=== PATIENT | female | born 1935 | race Caucasian/White ===

== ENCOUNTER 2019-01-12 03:58 | Inpatient (IN) | payer MEDICARE ==
[~2019-01-12] VITALS: Ht 162.6 cm; Wt 79.4 kg
[~2019-01-12 03:58] MED LIST: ACETAMINOPHEN500 MG PO; ALBUTEROL2.5 MG/3 M INH; AMLODIPINE BES2.5 MG PO; AMLODIPINE BESYL5 MG PO; AZITHROMYCIN250 MG PO; CALCIUM CARBON600 MG PO; CIPROFLOXACIN500 M1 PO; CUTIVATE30 GM TOP; DOXYCYCLINE HY100 MG PO; ELIDEL30 GM TOP; FOLIC ACID0.8 MG PO; FUROSEMIDE20 MG PO; HYDROXYZINE HCL25 MG PO; KEFLEX250 MG PO; KLOR-CON M2020 MEQ PO; LOVASTATIN10 MG PO; LYSINE500 MG PO; MACROBID 100 M100 MG PO; MAGNESIUM500 MG PO; METOPROLOL SUCC50 MG PO; METOPROLOL TART25 MG PO; NASONEX17 GM; NASONEX17 GM INH; OMEPRAZOLE40 MG PO; OXYTROL1 EA TOP; PATANASE30.5 GM; PATANASE30.5 GM INH; PAXIL10 MG PO; PHENAZOPYRIDIN200 MG PO; POTASSIUM CHLO20 MEQ PO; PROMETHAZI6.25 MG/5 PO; PROMETHAZINE HC25 M1 PO; PROVENTIL HFA6.7 GM INH; RESTASIS1 EACH OU; SIMVASTATIN10 MG PO; TRAMADOL HCL100 MG PO; TRIAMCINOLONE A15 G1 TOP; ULTRAM50 MG PO; XARELTO20 MG PO; ZINC50 M1 PO; ZOLPIDEM TARTRAT5 MG PO; ambien PO; amlodipine PO; metoprolol; omeprazole PO
--- OUTSIDE RECORDS SUMMARY | 2019-01-12 04:02 | XMS REPORT | Continuity of Care Document ---
Author Author [employer] Organization [employer] Address Unknown Phone Unavailable Care Team Providers Care Firing Pin Gauger Name Role Phone [employer] Unavailable Unavailable Problems Problem Status Onset Date Classification Date Reported Comments Source Sepsis, unspecified organism 08/22/2017 11/22/2017 [facility] SYNCOPE Active 08/11/2017 [facility] CHEST PAIN Active 07/25/2016 [facility] [id number] Active 07/04/2016 [facility] ABD PAIN Active 03/24/2014 [facility] 724.2, 338.29 Active 01/03/2012 [facility] Lumbago Active Problem 01/19/2012 [facility] AAA (Confirmed) Active Problem 11/22/2017 [facility] Risk for falls Active Problem 11/22/2017 [facility], [facility] Back pain Active Problem 11/22/2017 [facility] Chronic pain Active Problem 11/22/2017 [facility] Stroke1 Resolved Problem 11/22/2017 2005 minor eye drooping [facility] Rotator cuff disorder2 Resolved Problem 11/22/2017 right [facility] Carpal tunnel syndrome Resolved Problem 11/22/2017 [facility] Lumbago Active Problem 11/22/2017 [facility], [facility]ID [place] Obesity Active Problem 11/22/2017 [facility] [place] Leg pain Active Problem 11/22/2017 [facility] Pneumonia3 Resolved Problem 11/22/2017 x 7 in 4 yrs [facility], [facility] Metabolic encephalopathy 11/22/2017 [facility] Acute respiratory failure with hypoxia 11/22/2017 [facility] Acute kidney failure, unspecified 11/22/2017 [facility] Pneumonia, unspecified organism 11/22/2017 [facility] Chronic obstructive pulmonary disease with acute lower respiratory infection 11/22/2017 [facility] Urinary tract infection, site not specified 11/22/2017 [facility] Dehydration 11/22/2017 [facility] Essential hypertension 11/22/2017 [facility] Hypothyroidism, unspecified 11/22/2017 [facility] Enterococcus as the cause of diseases classified elsewhere 11/22/2017 [facility] A-fib Active Problem 11/22/2017 [facility] COPD (Confirmed) Active Problem 11/22/2017 [facility] IBS (Confirmed) Resolved Problem 11/22/2017 [facility] DVT (Confirmed) Resolved Problem 11/22/2017 [facility] HTN (Confirmed) Resolved Problem 11/22/2017 [facility] LUMBAGO Active [facility] PAIN, UNSPECIFIED Active [facility] OTHER CHRONIC POSTPROCEDURAL PAIN Active [facility] CHEST PAIN, UNSPECIFIED Active [facility] SEPSIS, UNSPECIFIED ORGANISM Active [facility] Medications Medication Details Route Status Patient Instructions Ordering Provider Order Date Source Zofran ODT 4 mg, Route: PO, Drug form: TABDIS, Q8H, Dosing Weight 72.864, kg, PRN Nausea, Priority: NOW, Start date: 08/16/17 12:53:00 ARMAMENT INSTALLER, Duration: 30 day, Stop date: 09/15/17 12:52:00 ARMAMENT INSTALLER Inactive 08/16/2017 [facility] Potassium Chloride 40 mEq, 2 tab, Route: PO, Drug form: ERTAB, ONCE, Dosing Weight 72.864, kg, Start date: 08/16/17 12:13:00 ARMAMENT INSTALLER, Stop date: 08/16/17 12:13:00 CSTNotes: (Same as: K-Dur 20) "Do Not Crush" With food and full glass of water Inactive 08/16/2017 [facility] Potassium Chloride 1.33 MEQ/ML Oral Solution 40 mEq, 2 pkt, Route: PO, Drug form: PDR/REC, Q1H, Dosing Weight 72.864, kg, Start date: 08/16/17 11:00:00 ARMAMENT INSTALLER, Duration: 2 doses or times, Stop date: 08/16/17 12:00:00 CSTNotes: (Same as: K-Clementine) With food and full glass of water Inactive 08/16/2017 [facility] Dulcolax Laxative 10 mg, 1 supp, Route: WA, Drug form: SUPP, Daily, Dosing Weight 72.864, kg, PRN Constipation, Start date: 08/16/17 10:01:00 ARMAMENT INSTALLER, Duration: 30 day, Stop date: 09/15/17 10:00:00 CSTNotes: (Same As: Dulcolax, Bisco-Lax) Inactive 08/16/2017 [facility] Levofloxacin 750 mg, 1 tab, Route: PO, Drug form: TAB, [id number], Dosing Weight 72.864, kg, For CrCl > 49ml/min, Start date: 08/15/17 11:00:00 ARMAMENT INSTALLER, Duration: 7 day, Stop date: 08/21/17 9:00:00 ARMAMENT INSTALLER, ABX Indication: Urinary Tract InfectionNotes: Do not give w/antacids, dairy pdt & minerals Take 1 hr before or 2 hr after dairy products No Longer Active 08/15/2017 [facility] levofloxacin 750 mg oral tablet 750 mg, PO, [id number], X 10 day, # 10 tab, 0 Refill(s), Pharmacy: [facility] [id number] No Longer Active 08/15/2017 [facility] Fosfomycin 3 gm, 1 pkt, Route: PO, Drug form: PDR/REC, ONCE, Dosing Weight 72.864, kg, Start date: 08/14/17 16:02:00 ARMAMENT INSTALLER, Stop date: 08/14/17 16:02:00 CSTNotes: (Same as: Monural) mix w/ 90 to 120 ml (3 to 4 ounc es) of water and stir to dissolve. Do not use hot water. Take immediately after dissolving in water. Inactive 08/14/2017 [facility] Potassium Chloride 1.33 MEQ/ML Oral Solution 40 mEq, 2 pkt, Route: PO, Drug form: PDR/REC, ONCE, Dosing Weight 72.864, kg, Start date: 08/14/17 10:11:00 ARMAMENT INSTALLER, Stop date: 08/14/17 10:11:00 CSTNotes: (Same as: K-Clementine) With food and full glass of water Inactive 08/14/2017 [facility] tramadol hydrochloride 50 MG Oral Tablet 50 mg, 1 tab, Route: PO, Drug form: TAB, Q6H, Dosing Weight 72.864, kg, PRN Pain Score 1-3, Priority: NOW, Start date: 08/14/17 2:36:00 ARMAMENT INSTALLER, Duration: 30 day, Stop date: 09/13/17 2:35:00 CSTNotes: Not to exceed 400mg/day. (Same As: Ultram) No Longer Active 08/14/2017 [facility] Omeprazole 40 mg, Route: PO, Drug form: DRC, Bedtime, Dosing Weight 72.864, kg, Start date: 08/13/17 21:00:00 ARMAMENT INSTALLER, Duration: 30 day, Stop date: 09/11/17 21:00:00 ARMAMENT INSTALLER No Longer Active 08/14/2017 [facility] rivaroxaban 15 mg, 1 tab, Route: PO, Drug form: TAB, QPM, Dosing Weight 72.864, kg, Start date: 08/13/17 17:00:00 ARMAMENT INSTALLER, Duration: 30 day, Stop date: 09/11/17 17:00:00 CSTNotes: (Same as: Xarelto) Administer with food No Longer Active 08/13/2017 [facility] mometasone furoate 0.05 MG/ACTUAT Metered Dose Nasal [place] [Nasonex] 100 microgram, 2 spray, Route: NASAL, Daily, Drug form: SPRY, Start date: 08/13/17 9:00:00 ARMAMENT INSTALLER, Duration: 30 day, Stop date: 09/11/17 9:00:00 ARMAMENT INSTALLER No Longer Active 08/13/2017 [facility] Lyrica 25 mg, 1 cap, Route: PO, Drug form: CAP, Daily, Dosing Weight 72.864, kg, Start date: 08/13/17 9:00:00 ARMAMENT INSTALLER, Duration: 30 day, Stop date: 09/11/17 9:00:00 CSTNotes: (Same as: Lyrica) No Longer Active 08/13/2017 [facility] Cyclosporine 1 drp, Route: BOTH EYES, Daily, Drug form: DROP, Start date: 08/13/17 9:00:00 ARMAMENT INSTALLER, Duration: 30 day, Stop date: 09/11/17 9:00:00 CSTNotes: (Same as: Restasis) No Longer Active 08/13/2017 [facility] Singulair 10 mg, 1 tab, Route: PO, Drug form: TAB, Daily, Dosing Weight 72.864, kg, Start date: 08/13/17 9:00:00 ARMAMENT INSTALLER, Duration: 30 day, Stop date: 09/11/17 9:00:00 CSTNotes: (Same as:Singulair) No Longer Active 08/13/2017 [facility] metoprolol tartrate 12.5 mg, 0.5 tab, Route: PO, Drug form: TAB, Q12H, Dosing Weight 72.864, kg, Start date: 08/13/17 9:00:00 ARMAMENT INSTALLER, Duration: 30 day, Stop date: 09/11/17 21:00:00 CSTNotes: (Same as: Lopressor) No Longer Active 08/13/2017 [facility] Protonix 40 mg, 1 tab, Route: PO, Drug form: ECTAB, Bedtime, Start date: 08/13/17 0:00:00 ARMAMENT INSTALLER, Duration: 30 day, Stop date: 09/11/17 21:00:00 CSTNotes: Tablet should not be chewed or crushed. (Same as: Protonix) No Longer Active 08/13/2017 [facility] Zithromax 500 mg, Route: IVPB, Drug form: PDR/INJ, [id number], Dosing Weight 68.182, kg, Start date: 08/13/17 0:00:00 ARMAMENT INSTALLER, Duration: 10 day, Stop date: 08/22/17 0:00:00 ARMAMENT INSTALLER, ABX Indication: PneumoniaNotes: (Same As: Zithromax IV) No Longer Active 08/13/2017 [facility] Azithromycin 500 mg, Route: IVPB, Drug form: PDR/INJ, [id number], Dosing Weight 68.182, kg, Start date: 08/13/17 0:00:00 ARMAMENT INSTALLER, Duration: 30 day, Stop date: 09/11/17 0:00:00 ARMAMENT INSTALLER, ABX Indication: PneumoniaNotes: (Same As: Zithromax IV) No Longer Active 08/13/2017 [facility] Simvastatin 10 mg, 1 tab, Route: PO, Drug form: TAB, Bedtime, Dosing Weight 72.864, kg, Start date: 08/13/17 0:00:00 ARMAMENT INSTALLER, Duration: 30 day, Stop date: 09/11/17 21:00:00 CSTNotes: (Same as: Zocor) No Longer Active 08/13/2017 [facility] Rocephin 1 gm, Route: IVP, Drug form: PDR/INJ, [id number], Dosing Weight 68.182, kg, Start date: 08/12/17 21:00:00 ARMAMENT INSTALLER, Duration: 10 day, Stop date: 08/21/17 21:00:00 ARMAMENT INSTALLER, ABX Indication: PneumoniaNotes: (Same As: Rocephin). Use with 100 mL NS and infuse over 30 min MEDICATION WASTE Product Size: 1000 mg Product Wasted: ___ mg No Longer Active 08/13/2017 [facility] pregabalin 25 MG Oral Capsule [Lyrica] 25 mg=1 cap, PO, Daily, # 30 cap, 0 Refill(s) Active 08/12/2017 [facility] montelukast 10 MG Oral Tablet [Singulair] 10 mg=1 tab, PO, Daily, 0 Refill(s) Active 08/12/2017 [facility] rivaroxaban 20 MG Oral Tablet [Xarelto] 20 mg=1 tab, PO, QPM, # 30 tab, 3 Refill(s) No Longer Active 08/12/2017 [facility] metoprolol 25 mg oral tablet, extended release 25 mg=1 tab, PO, TID, 0 Refill(s) Active 08/12/2017 [facility] Amlodipine 5 mg, PO, Daily, 0 Refill(s) No Longer Active 08/12/2017 [facility] losartan 25 mg oral tablet 25 mg=1 tab, PO, Daily, 0 Refill(s) Active 08/12/2017 [facility] fluticasone nasal 2 spray, Route: Each Affected Nostril, Drug Form: SPRY, Daily, Start date: 08/12/17 13:00:00 ARMAMENT INSTALLER, Duration: 30 day, Stop date: 09/11/17 9:00:00 CSTNotes: (Same as: Flonase) No Longer Active 08/12/2017 [facility] Albuterol 0.833 MG/ML / Ipratropium [place] 0.167 MG/ML Inhalant Solution [DuoNeb] 3 ml, Route: NEB, Drug Form: SOLN, Dosing Weight 72.864, kg, Q4H, Start date: 08/12/17 12:00:00 ARMAMENT INSTALLER, Duration: 30 day, Stop date: 09/11/17 8:00:00 CSTNotes: (Same as: Duoneb) No Longer Active 08/12/2017 [facility] metoprolol tartrate 25 mg, 1 tab, Route: PO, Drug form: TAB, Q6H, Dosing Weight 72.864, kg, Start date: 08/12/17 12:00:00 ARMAMENT INSTALLER, Stop date: 08/15/17 11:08:00 CSTNotes: (Same as: Lopressor) No Longer Active 08/12/2017 [facility] Thyroxine 50 microgram, 1 tab, Route: PO, Drug form: TAB, [id number], Dosing Weight 72.864, kg, Start date: 08/12/17 11:30:00 ARMAMENT INSTALLER, Duration: 30 day, Stop date: 09/11/17 6:30:00 CSTNotes: Take 1 hour before or 2 hours after meal; Enteral feeds may interefere with the absorption of this medication.(Same as:Levothroid, Synthroid) No Longer Active 08/12/2017 [facility] Streptococcus pneumoniae serotype 1 capsular antigen diphtheria [id number] protein conjugate vaccine / Streptococcus pneumoniae serotype 14 capsular antigen diphtheria [id number] protein conjugate vaccine / Streptococcus pneumoniae serotype 18C capsular antigen d 0.5 mL, Route: IM, Drug Form: INJ, ONCALL, Start date: 08/12/17 11:00:00 ARMAMENT INSTALLER, Duration: 1 doses or times, Stop date: 09/09/17 0:00:00 CSTNotes: Shake well prior to use (Same as: Prevnar 13) No Longer Active 08/12/2017 [facility] Lovenox 40 mg, 0.4 mL, Route: SUB-Q, Drug form: INJ, [id number], Dosing Weight 72.864, kg, Start date: 08/12/17 10:00:00 ARMAMENT INSTALLER, Duration: 30 day, Stop date: 09/09/17 13:00:00 CSTNotes: (Same as: Lovenox) Inactive 08/12/2017 [facility] Budesonide 0.25 MG/ML Inhalant Solution 0.5 mg, 2 mL, Route: NEB, Drug form: SUSP, RBID, Dosing Weight 72.864, kg, Start date: 08/12/17 9:50:00 ARMAMENT INSTALLER, Duration: 30 day, Stop date: 09/11/17 8:00:00 CSTNotes: (Same As: Pulmicort) No Longer Active 08/12/2017 [facility] Metoprolol 5 mg, 5 mL, Route: IVP, Drug form: INJ, Q4H, Dosing Weight 68.182, kg, PRN Other -See Comment, Start date: 08/12/17 3:54:00 ARMAMENT INSTALLER, Duration: 30 day, Stop date: 09/11/17 3:53:00 CSTNotes: (Same as: Lopr essor) Push over 2 minutes No Longer Active 08/12/2017 [facility] Hydralazine 10 mg, 0.5 mL, Route: IVP, Drug form: INJ, Q4H, Dosing Weight 68.182, kg, PRN Other -See Comment, Start date: 08/12/17 3:54:00 ARMAMENT INSTALLER, Duration: 30 day, Stop date: 09/11/17 3:53:00 CSTNotes: (Same as: A presoline) Push over 5 minutes No Longer Active 08/12/2017 [facility] Sodium Chloride 0.9% IV 1,000 mL 1,000 mL, Rate: 45 ml/hr, Infuse over: 22.2 hr, Route: IV, Dosing Weight 72.864 kg, Total Volume: 1,000, Start date: 08/12/17 3:50:00 ARMAMENT INSTALLER, Stop date: 09/11/17 3:49:00 ARMAMENT INSTALLER, 1.83, m2 No Longer Active 08/12/2017 [facility] Saline Flush 0.9% 10 ml, Route: IVP, Drug Form: INJ, Dosing Weight 68.182, kg, PRN, PRN Line Flush, Start date: 08/12/17 3:50:00 ARMAMENT INSTALLER, Duration: 30 day, Stop date: 09/11/17 3:49:00 CSTNotes: (Same as: BD Posiflush) No Longer Active 08/12/2017 [facility] Ondansetron 4 mg, 2 mL, Route: IVP, Drug form: INJ, Q6H, Dosing Weight 68.182, kg, PRN Nausea & Vomiting, Start date: 08/12/17 3:50:00 ARMAMENT INSTALLER, Duration: 30 day, Stop date: 09/11/17 3:49:00 CSTNotes: (Same as: Zofran) MEDICATION WASTE Product Size: 4 mg Product Wasted: ___ mg No Longer Active 08/12/2017 [facility] Acetaminophen 650 mg, 2 tab, Route: PO, Drug form: TAB, Q4H, Dosing Weight 68.182, kg, PRN Pain Score 1-3, For fever > 100.4. Not to exceed 4 grams in 24 hours, Start date: 08/12/17 3:50:00 ARMAMENT INSTALLER, Duration: 30 day, Stop date: 09/11/17 3:49:00 CSTNotes: Do not exceed 4 gm/day. (Same as: Tylenol) No Longer Active 08/12/2017 [facility] Dextromethorphan Hydrobromide 2 MG/ML / Guaifenesin 20 MG/ML Oral Solution 10 mL, Route: PO, Drug Form: LIQ, Dosing Weight 68.182, kg, Q4H, PRN Cough, Start date: 08/12/17 3:50:00 ARMAMENT INSTALLER, Duration: 30 day, Stop date: 09/11/17 3:49:00 CSTNotes: (dextromethorphan-guaifenesin 10-100/5 ml LIQ) (Same as: Robitussin-DM) No Longer Active 08/12/2017 [facility] Albuterol 0.83 MG/ML Inhalant Solution 2.49 mg, 3 mL, Route: INHALATION, Drug form: SOLN, PRN, Dosing Weight 68.182, kg, PRN Respiratory Protocol, Start date: 08/12/17 3:50:00 ARMAMENT INSTALLER, Duration: 30 day, Stop date: 09/11/17 3:49:00 CSTNotes: SEE RT DOCUMENTATION (Same as: Proventil) No Longer Active 08/12/2017 [facility] Saline Flush 0.9% 10 ml, Route: IVP, Drug Form: INJ, Dosing Weight 68.182, kg, PRN, PRN Line Flush, Start date: 08/12/17 0:51:00 ARMAMENT INSTALLER, Duration: 30 day, Stop date: 09/11/17 0:50:00 CSTNotes: (Same as: BD Posiflush) Inactive 08/12/2017 [facility] Sodium Chloride 0.9% IV 1,000 mL 1,000 mL, Rate: 75 ml/hr, Infuse over: 13.3 hr, Route: IV, Dosing Weight 68.182 kg, Total Volume: 1,000, Start date: 08/12/17 0:51:00 ARMAMENT INSTALLER, Duration: 30 day, Stop date: 09/11/17 0:50:00 ARMAMENT INSTALLER, 1.77, m2 Inactive 08/12/2017 [facility] Acetaminophen 650 mg, 2 tab, Route: PO, Drug form: TAB, Q4H, Dosing Weight 68.182, kg, PRN Pain Score 1-3, For fever > 100.4. Not to exceed 4 grams in 24 hours, Start date: 08/12/17 0:51:00 ARMAMENT INSTALLER, Duration: 30 day, Stop date: 09/11/17 0:50:00 CSTNotes: Do not exceed 4 gm/day. (Same as: Tylenol) Inactive 08/12/2017 [facility] Ondansetron 4 mg, 2 mL, Route: IVP, Drug form: INJ, Q6H, Dosing Weight 68.182, kg, PRN Nausea & Vomiting, Start date: 08/12/17 0:51:00 ARMAMENT INSTALLER, Duration: 30 day, Stop date: 09/11/17 0:50:00 CSTNotes: (Same as: Zofran) MEDICATION WASTE Product Size: 4 mg Product Wasted: ___ mg Inactive 08/12/2017 [facility] Dextromethorphan Hydrobromide 2 MG/ML / Guaifenesin 20 MG/ML Oral Solution 10 mL, Route: PO, Drug Form: LIQ, Dosing Weight 68.182, kg, Q4H, PRN Cough, Start date: 08/12/17 0:51:00 ARMAMENT INSTALLER, Duration: 30 day, Stop date: 09/11/17 0:50:00 CSTNotes: (dextromethorphan-guaifenesin 10-100/5 ml LIQ) (Same as: Robitussin-DM) Inactive 08/12/2017 [facility] Albuterol 0.833 MG/ML / Ipratropium [place] 0.167 MG/ML Inhalant Solution 3 mL, Route: INHALATION, Drug Form: SOLN, Dosing Weight 68.182, kg, PRN, PRN Respiratory Protocol, Start date: 08/12/17 0:51:00 ARMAMENT INSTALLER, Duration: 30 day, Stop date: 09/11/17 0:50:00 CSTNotes: (Same as: Duoneb) Inactive 08/12/2017 [facility] Azithromycin 500 mg, Route: IVPB, ONCE, Dosing Weight 68.182, kg, Priority: STAT, Start date: 08/12/17 0:10:00 ARMAMENT INSTALLER, Stop date: 08/12/17 0:10:00 ARMAMENT INSTALLER, ABX Indication: Pneumonia Inactive 08/12/2017 [facility] NS (Bolus) IV 500 mL, 500 ml/hr, Infuse Over: 1 hr, Route: IV, 500, Drug form: INJ, ONCE, Priority: STAT, Dosing Weight 68.182 kg, Start date: 08/11/17 23:23:00 ARMAMENT INSTALLER, Stop date: 08/11/17 23:23:00 ARMAMENT INSTALLER No Longer Active 08/12/2017 [facility] Ceftriaxone 1 gm, Route: IVP, ONCE, Dosing Weight 68.182, kg, Priority: STAT, Start date: 08/11/17 21:21:00 ARMAMENT INSTALLER, Stop date: 08/11/17 21:21:00 ARMAMENT INSTALLER, ABX Indication: Urinary Tract InfectionNotes: (Same As: Rocephin). Use with 100 mL NS and infuse over 30 min MEDICATION WASTE Product Size: 1000 mg Product Wasted0 mg Inactive 08/12/2017 [facility] Visipaque 320 mg/mL injectable solution 100 mL, Route: IVP, Drug Form: SOLN, Dosing Weight 68.182, kg, ONCALL, GFR 31 - 45 mL/min, STAT, Start date: 08/11/17 21:20:00 ARMAMENT INSTALLER, Duration: 1 doses or timesNotes: (Same as: Visipaque). WASTE: F/P - Black; E - Municipal Trash Bin Inactive 08/12/2017 [facility] NS (Bolus) IV 500 mL, 500 ml/hr, Infuse Over: 1 hr, Route: IV, 500, Drug form: INJ, ONCE, Priority: STAT, Dosing Weight 68.182 kg, Start date: 08/11/17 19:45:00 ARMAMENT INSTALLER, Stop date: 08/11/17 19:45:00 ARMAMENT INSTALLER Inactive 08/12/2017 [facility] Saline Flush 0.9% 10 mL, Route: IVP, Drug Form: INJ, Dosing Weight 68.182, kg, PRN, PRN Line Flush, Start date: 08/11/17 19:31:00 ARMAMENT INSTALLER, Duration: 30 day, Stop date: 09/10/17 19:30:00 CSTNotes: (Same as: BD Posiflush) No Longer Active 08/12/2017 [facility] Xarelto 20 mg, Route: PO, QPM, Dosing Weight 82.545, kg, Start date: 07/28/16 17:00:00 ARMAMENT INSTALLER, Duration: 30 day, Stop date: 08/26/16 17:00:00 ARMAMENT INSTALLER Inactive 07/28/2016 [facility] rivaroxaban 15 mg, 1 tab, Route: PO, Drug form: TAB, QPM, Start date: 07/28/16 17:00:00 ARMAMENT INSTALLER, Duration: 30 day, Stop date: 08/26/16 17:00:00 CSTNotes: (Same as: Xarelto) Administer with food Inactive 07/28/2016 [facility] tramadol hydrochloride 50 MG Oral Tablet 50 mg=1 tab, PO, Q6H, PRN Pain, X 10 day, # 40 tab, 0 Refill(s) Active 07/28/2016 [facility] rivaroxaban 15 mg oral tablet 15 mg=1 tab, PO, QPM, # 30 tab, 0 Refill(s) Active 07/28/2016 [facility] metoprolol tartrate 50 mg oral tablet 100 mg=2 tab, PO, Q12H, # 120 tab, 2 Refill(s) Active 07/28/2016 [facility] Tylenol 500 mg, 1 tab, Route: PO, Drug form: TAB, ONCE, Dosing Weight 82.545, kg, Start date: 07/28/16 11:35:00 ARMAMENT INSTALLER, Stop date: 07/28/16 11:35:00 CSTNotes: Max acetaminophen 4000 mg/day (4 gm/day). (Same as: Tylenol Extra Strength) Inactive 07/28/2016 [facility] potassium chloride 20 mEq oral tablet, extended release 40 mEq, 2 tab, Route: PO, Drug form: ERTAB, ONCE, Dosing Weight 82.545, kg, Start date: 07/28/16 9:17:00 ARMAMENT INSTALLER, Stop date: 07/28/16 9:17:00 CSTNotes: (Same as: K- Dur 20) "Do Not Crush" With food and full glass of water Inactive 07/28/2016 [facility] Levothroid 50 microgram, 1 tab, Route: PO, Drug form: TAB, Q630AM, Start date: 07/28/16 6:30:00 ARMAMENT INSTALLER, Duration: 30 day, Stop date: 08/26/16 6:30:00 CSTNotes: Take 1 hour before or 2 hours after meal; Enteral feeds may interefere with the absorption of this medication.(Same as:Levothroid, Synthroid) Inactive 07/28/2016 [facility] metoprolol tartrate 100 mg, 2 tab, Route: PO, Drug form: TAB, Q12H, Dosing Weight 82.727, kg, Start date: 07/27/16 21:00:00 ARMAMENT INSTALLER, Duration: 30 day, Stop date: 08/26/16 9:00:00 CSTNotes: (Same as: Lopressor) No Longer Active 07/28/2016 [facility] Streptococcus pneumoniae serotype 1 capsular antigen diphtheria [id number] protein conjugate vaccine / Streptococcus pneumoniae serotype 14 capsular antigen diphtheria [id number] protein conjugate vaccine / Streptococcus pneumoniae serotype 18C capsular antigen d 0.5 mL, Route: IM, Drug Form: INJ, Daily, Start date: 07/27/16 9:00:00 ARMAMENT INSTALLER, Duration: 1 doses or times, Stop date: 07/27/16 9:00:00 CSTNotes: Lightly roll vial (DO NOT SHAKE) before administration. (Same as: Prevnar 13) Inactive 07/27/2016 [facility] Magnesium Sulfate 1 gm, 100 mL, Route: IVPB, Drug form: INJ, ONCE, Dosing Weight 82.545, kg, Start date: 07/27/16 8:19:00 ARMAMENT INSTALLER, Stop date: 07/27/16 8:19:00 CSTNotes: WASTE: F/P - Sink; E - Municipal Trash Bin Inactive 07/27/2016 [facility] Vancomycin 1.5 gm, Route: IV, [id number], Dosing Weight 82.545, kg, Priority: NOW, Start date: 07/27/16 8:18:00 ARMAMENT INSTALLER, Duration: 30 day, Stop date: 08/25/16 8:18:00 CSTNotes: TIME CRITICAL MEDICATION (Same As: Vancocin) Infusion rate 2001 mg: infuse over 2.5 hours MEDICATION WASTE Product Size: 1000 mg Product Wasted: ___ mg Inactive 07/27/2016 [facility] Simvastatin 10 mg, 1 tab, Route: PO, Drug form: TAB, Bedtime, Dosing Weight 82.727, kg, Start date: 07/26/16 21:00:00 ARMAMENT INSTALLER, Duration: 30 day, Stop date: 08/24/16 21:00:00 CSTNotes: (Same as: Zocor) No Longer Active 07/27/2016 [facility] Omeprazole 40 mg, Route: PO, Drug form: DRC, Bedtime, Dosing Weight 82.727, kg, Start date: 07/26/16 21:00:00 ARMAMENT INSTALLER, Duration: 30 day, Stop date: 08/24/16 21:00:00 ARMAMENT INSTALLER Inactive 07/27/2016 [facility] mometasone furoate 0.05 MG/ACTUAT Metered Dose Nasal [place] [Nasonex] 2 spray, NASAL, Daily, 0 Refill(s) Active 07/27/2016 [facility] rivaroxaban 20 MG Oral Tablet [Xarelto] 20 mg=1 tab, PO, QPM, # 30 tab, 3 Refill(s) No Longer Active 07/27/2016 [facility] phenazopyridine 200 mg oral tablet 200 mg=1 tab, PO, Q6H Active 07/27/2016 [facility] Cyclosporine 0.5 MG/ML Ophthalmic Suspension [Restasis] 2 drp, BOTH EYES, Daily Active 07/27/2016 [facility] Symbicort 80/4.5 inhalation aerosol with adapter 1 puff, INHALATION, BID Active 07/27/2016 [facility] metoprolol tartrate 25 mg oral tablet 25 mg=1 tab, PO, BID No Longer Active 07/27/2016 [facility] [facility] Al[facility]ol 0.83 MG/ML Inhalant Solution 2.5 mg=3 mL, INHALATION, TID, PRN prn Active 07/27/2016 [facility] lysine 500 mg oral tablet 1,000 mg=2 tab, PO, Daily Active 07/27/2016 [facility] levocetirizine 5 mg oral tablet 5 mg=1 tab, PO, QAM Active 07/27/2016 [facility] levothyroxine 50 mcg (0.05 mg) oral tablet 50 microgram=1 tab, PO, Daily Active 07/27/2016 [facility] Xarelto 20 mg, 1 tab, Route: PO, Drug form: TAB, QPM, Dosing Weight 82.727, kg, Start date: 07/26/16 17:00:00 [employer] INST[employer], Duration: 30 day, Stop date: 08/24/16 17:00:00 CSTNotes: (Same as: Xarelto) Administer with food Inactive 07/26/2016 [facility] Protonix 40 mg, 1 tab, Route: PO, Drug form: ECTAB, Before Dinner, Start date: 07/26/16 16:30:00 [employer] INST[employer], Duration: 30 day, Stop date: 08/24/16 16:30:00 CSTNotes: Tablet should not be chewed or crushed. (Same as: Protonix) No Longer Active 07/26/2016 [facility] metoprolol tartrate 50 mg, 1 tab, Route: PO, Drug form: TAB, Q8H, Dosing Weight 82.727, kg, Start date: 07/26/16 16:00:00 [employer] INST[employer], Duration: 30 day, Stop date: 08/25/16 8:00:00 CSTNotes: (Same as: Lopressor) No Longer Active 07/26/2016 [facility] Furosemide 40 MG Oral Tablet [Lasix] 40 mg, 1 tab, Route: PO, Drug form: TAB, Daily, Dosing Weight 82.727, kg, Priority: NOW, Start date: 07/26/16 14:52:00 [employer] INST[employer], Duration: 30 day, Stop date: 08/25/16 9:00:00 CSTNotes: (Same as: Lasix) No Longer Active 07/26/2016 [facility] Vancomycin 1.25 gm, 250 mL, Route: IV, Drug form: INJ, ONCE, Dosing Weight 82.727, kg, Priority: NOW, Start date: 07/26/16 10:38:00 [employer] INST[employer]ER, Stop date: 07/26/16 10:38:00 CSTNotes: TIME CRITICAL MEDICATION Same as: Vancocin-NS (premixed) Infusion rate 2001 mg: infuse over 2.5 hours Inactive 07/26/2016 [facility] Amlodipine 2.5 mg, Route: PO, Drug form: TAB, Daily, Dosing Weight 82.727, kg, Start date: 07/26/16 9:00:00 [employer] INST[employer], Duration: 30 day, Stop date: 08/24/16 9:00:00 [employer] INST[employer]ER No Longer Active 07/26/2016 [facility] 24 HR Metoprolol Tartrate 25 MG Extended Release Tablet [Toprol] 25 mg, 1 tab, Route: PO, Drug form: ERTAB, Daily, Start date: 07/26/16 9:00:00 [employer] INST[employer], Duration: 30 day, Stop date: 08/24/16 9:00:00 CSTNotes: (Same as: Toprol XL) Do Not Crush Inactive 07/26/2016 [facility] Losartan 25 mg, Route: PO, Drug form: TAB, Daily, Dosing Weight 82.727, kg, Start date: 07/26/16 9:00:00 [employer] INST[employer]ER, Duration: 30 day, Stop date: 08/24/16 9:00:00 [employer]ENT INST[employer]ER No Longer Active 07/26/2016 [facility] Metoprolol 5 mg, Route: IV, ONCE, Dosing Weight 82.727, kg, Start date: 07/26/16 8:53:00 [employer] INST[employer]ER, Stop date: 07/26/16 8:53:00 [employer]ENT INST[employer]ER Inactive 07/26/2016 [facility] metoprolol tartrate 25 mg, Route: PO, Drug form: TAB, ONCE, Dosing Weight 82.727, kg, Start date: 07/26/16 8:53:00 [employer]ENT INST[employer]ER, Stop date: 07/26/16 8:53:00 ARM[employer]ENT INST[employer]ER Inactive 07/26/2016 [facility] Metoprolol 5 mg, Route: IV, ONCE, Dosing Weight 82.727, kg, Start date: 07/26/16 8:21:00 [employer]ENT INST[employer]ER, Stop date: 07/26/16 8:21:00 [employer]ENT INST[employer]ER Inactive 07/26/2016 [facility] Symbicort 80/4.5 inhalation aerosol with adapter 2 inhalation, Route: INHALATION, Drug Form: AERO/A, Dosing Weight 82.727, kg, RBID, Start date: 07/26/16 8:00:00 [employer] INST[employer]ER, Duration: 30 day, Stop date: 08/24/16 20:00:00 CSTNotes: (Same as: Symbicort) WASTE: Aerosol - Return to Pharmacy No Longer Active 07/26/2016 [facility] Tramadol 50 mg, 1 tab, Route: PO, Drug form: TAB, Q6H, Dosing Weight 82.727, kg, PRN Pain Score 6-10, Start date: 07/26/16 6:53:00 [employer] INST[employer]ER, Duration: 30 day, Stop date: 08/25/16 6:52:00 CSTNotes: Not to exceed 40 0mg/day. (Same As: Ultram) No Longer Active 07/26/2016 [facility] Albuterol 0.833 MG/ML / Ipratropium [place] 0.167 MG/ML Inhalant Solution 3 mL, Route: NEB, Drug Form: SOLN, Dosing Weight 82.727, kg, RQ4H, PRN Respiratory Protocol, Start date: 07/26/16 4:04:00 [employer] INST[employer]ER, Stop date: 08/25/16 3:00:00 CSTNotes: (Same as: Duoneb) No Longer Active 07/26/2016 [facility] Sodium Chloride 0.9% IV 1000 mL 1,000 mL, Rate: 100 ml/hr, Infuse over: 10 hr, Route: IV, Dosing Weight 82.727 kg, Total Volume: 1,000, Start date: 07/26/16 1:01:00 [employer] INST[employer]ER, Duration: 30 day, Stop date: 08/25/16 1:00:00 [employer]ENT INST[employer]ER Inactive 07/26/2016 [facility] tramadol hydrochloride 50 MG Oral Tablet 50 mg, 1 tab, Route: PO, Drug form: TAB, Q6H, Dosing Weight 82.727, kg, PRN Pain Score 6-10, Start date: 07/25/16 22:50:00 [employer] INST[employer]ER, Duration: 30 day, Stop date: 08/24/16 22:49:00 CSTNotes: Not to exceed 400mg/day. (Same As: Ultram) No Longer Active 07/26/2016 [facility] Albuterol 0.833 MG/ML / Ipratropium [place] 0.167 MG/ML Inhalant Solution 3 mL, Route: INHALATION, Drug Form: SOLN, Dosing Weight 82.727, kg, RQ6H, PRN Wheezing, Start date: 07/25/16 22:46:00 [employer] INST[employer], Duration: 30 day, Stop date: 08/24/16 22:45:00 CSTNotes: (Same as: Duoneb) No Longer Active 07/26/2016 [facility] Ceftazidime 1 gm, Route: IV, Drug form: PDR/INJ, ABXQ8H, Dosing Weight 82.727, kg, Start date: 07/25/16 22:00:00 [employer] INST[employer]ER, Duration: 30 day, Stop date: 08/24/16 14:00:00 CSTNotes: (Same as: Fortaz) MEDICATION WASTE Product Size: 1000 mg Product Wasted: ___ mg No Longer Active 07/26/2016 [facility] Amlodipine 2.5 mg, 1 tab, Route: PO, Drug form: TAB, ONCE, Dosing Weight 82.727, kg, Start date: 07/25/16 21:18:00 [employer] INST[employer], Stop date: 07/25/16 21:18:00 CSTNotes: (Same as: Norvasc) No Longer Active 07/26/2016 [facility] Benadryl 25 mg, 0.5 mL, Route: IVP, Drug form: INJ, ONCE, Dosing Weight 82.727, kg, Priority: STAT, Start date: 07/25/16 21:17:00 [employer] INST[employer]ER, Stop date: 07/25/16 21:17:00 CSTNotes: (Same as: Benadryl) No Longer Active 07/26/2016 [facility] Vancomycin 2 gm, Route: IV, ONCE, Dosing Weight 82.727, kg, Start date: 07/25/16 21:16:00 [employer] INST[employer]ER, Stop date: 07/25/16 21:16:00 CSTNotes: TIME CRITICAL MEDICATION (Same As: Vancocin) Infusion rate 2001 mg: infuse ov er 2.5 hours MEDICATION WASTE Product Size: 1000 mg Product Wasted: ___ mg No Longer Active 07/26/2016 [facility] Sodium Chloride 0.154 MEQ/ML Injectable Solution 1,000 mL, 1,000 ml/hr, Infuse Over: 1 hr, Route: IV, ONCE, Priority: STAT, Dosing Weight 82.727 kg, Start date: 07/25/16 20:26:00 [employer] INST[employer]ER, Duration: 1 doses or times, Stop date: 07/25/16 20:26:00 [employer]ENT INSTALLER Inactive 07/26/2016 [facility] Saline Flush 0.9% 10 mL, Route: IVP, Drug Form: INJ, Dosing Weight 82.727, kg, PRN, PRN Line Flush, Start date: 07/25/16 20:05:00 [employer] INST[employer], Duration: 30 day, Stop date: 08/24/16 20:04:00 CSTNotes: (Same as: BD Posiflush) No Longer Active 07/26/2016 [facility] metoprolol tartrate 25 mg, Route: PO, Drug form: TAB, ONCE, Dosing Weight 82.727, kg, Priority: STAT, Start date: 07/25/16 20:05:00 ARMAMENT INST[employer]ER, Stop date: 07/25/16 20:05:00 ARM[employer]ENT INST[employer]ER Inactive 07/26/2016 [facility] iodixanol 70 mL, Route: IVP, Drug Form: SOLN, Dosing Weight 82.727, kg, ONCALL, STAT, Start date: 07/25/16 18:33:00 [employer] INST[employer]ER, Duration: 1 doses or times, Dose=2.2ml/kg, Max oake=880cn -- "To be infused by Radiology Staff ONLY" Inactive 07/26/2016 [facility] Morphine 2 mg, Route: IVP, ONCE, Dosing Weight 82.727, kg, Priority: STAT, Start date: 07/25/16 17:44:00 ARM[employer]ENT INST[employer]ER, Stop date: 07/25/16 17:44:00 ARM[employer]ENT INST[employer]ER Inactive 07/25/2016 [facility] lidocaine (ANES) Route: IV, Drug form: INJ, ONCE, Stop date: 07/22/16 10:13:00 ARMAMENT INSTALLER Inactive 07/22/2016 [facility] fentaNYL (ANES) Route: IV, Drug form: INJ, ONCE, Stop date: 07/22/16 10:13:00 ARMAMENT INSTALLER Inactive 07/22/2016 [facility] ondansetron (ANES) Route: IV, Drug form: INJ, ONCE, Stop date: 07/22/16 10:13:00 ARMAMENT INSTALLER Inactive 07/22/2016 [facility] propofol (ANES) (ANES) Route: IV, Drug form: INJ, Start date: 07/22/16 9:47:00 ARMAMENT INSTALLER, Stop date: 07/22/16 10:47:00 ARMAMENT INSTALLER Inactive 07/22/2016 [facility] vancomycin (ANES) (ANES) Route: IV, Drug form: INJ, Start date: 07/22/16 9:35:00 ARMAMENT INSTALLER, Stop date: 07/22/16 10:35:00 ARMAMENT INSTALLER Inactive 07/22/2016 [facility] LR 1000 mL INJ (ANES) Route: IV, Total Volume: 1,000, Start date: 07/22/16 9:32:00 ARMAMENT INSTALLER, Stop date: 07/22/16 10:32:00 ARMAMENT INSTALLER Inactive 07/22/2016 [facility] tramadol hydrochloride 50 MG Oral Tablet 50 mg=1 tab, PO, Q6H, PRN Pain, X 10 day, # 40 tab, 0 Refill(s) Active 07/22/2016 [facility] Docusate Sodium 100 MG Oral Capsule 100 mg=1 cap, PO, BID, # 30 cap, 1 Refill(s), Pharmacy: [facility] [id number] Active 07/22/2016 [facility] Albuterol 0.83 MG/ML Inhalant Solution 2.5 mg, 0.5 mL, Route: NEB, Drug form: SOLN, Q20Min, Dosing Weight 83.182, kg, PRN Wheezing, Priority: STAT, Start date: 07/22/16 7:02:00 [employer]ENT INST[employer]ER, Duration: 12 hr, Stop date: 07/22/16 19:01:00 CSTNotes: SEE RT DOCUMENTATION MEDICATION WASTE Product Size: 2.5 mg Product Wasted: ___ mg Inactive 07/22/2016 [facility] Diphenhydramine 12.5 mg, 0.25 mL, Route: IVP, Drug form: INJ, Q6H, Dosing Weight 83.182, kg, PRN Itching, Start date: 07/22/16 7:02:00 [employer]ENT INST[employer]ER, Duration: 12 hr, Stop date: 07/22/16 19:01:00 CSTNotes: (Same as: Benadryl) Inactive 07/22/2016 [facility] Glycopyrrolate 0.2 mg, 1 mL, Route: IVP, Drug form: INJ, Q5Min, Dosing Weight 83.182, kg, PRN Bradycardia, Start date: 07/22/16 7:02:00 [employer]AMENT INST[employer]ER, Duration: 3 doses or times, Stop date: 07/22/16 19:00:00 CSTNotes: (Same as: Rubina) Inactive 07/22/2016 [facility] Meperidine 12.5 mg, 0.5 mL, Route: IVP, Drug form: INJ, Q30Min, Dosing Weight 83.182, kg, PRN Other -See Comment, For shivering, Start date: 07/22/16 7:02:00 [employer]AMENT INST[employer]ER, Duration: 2 doses or times, Stop date: 07/22/16 19 :00:00 CSTNotes: (Same as: Demerol) "Use Precaution in Elderly, Seizure disorders, and Renal impairment" Inactive 07/22/2016 [facility] Ondansetron 4 mg, 2 mL, Route: IVP, Drug form: INJ, ONCE, Dosing Weight 83.182, kg, PRN Nausea & Vomiting, Start date: 07/22/16 7:02:00 CSTNotes: (Same as: Zofran) MEDICATION WASTE Product Size: 4 mg Product Wasted: ___ mg Inactive 07/22/2016 [facility] Fentanyl 50 microgram, 1 mL, Route: IVP, Drug form: INJ, Q5Min, Dosing Weight 83.182, kg, PRN Pain Score 7-10, Priority: Routine, Start date: 07/22/16 7:02:00 ARMAMENT INST[employer]ER, Duration: 2 doses or times, Stop date: 07/22/16 19:00:00 CSTNotes: (Same as: Sublimaze) Preservative free. Inactive 07/22/2016 [facility] Naloxone 0.4 mg, 1 mL, Route: IVP, Drug form: INJ, Q2MIN, Dosing Weight 83.182, kg, PRN Narcotic Reversal, Start date: 07/22/16 7:02:00 [employer]ENT INST[employer]ER, Duration: 8 doses or times, Stop date: 07/22/16 19:00:00 CSTNotes: Same as Narcan Inactive 07/22/2016 [facility] Flumazenil 0.2 mg, 2 mL, Route: IVP, Drug form: INJ, PRN, Dosing Weight 83.182, kg, PRN Benzodiazepine Reversal, Initial dose, Start date: 07/22/16 7:02:00 [employer] INST[employer], Duration: 12 hr, Stop date: 07/22/16 19:01:00 ARMAMENT INSTALL[employer] Notes: (Same as: Romazicon) Inactive 07/22/2016 [facility] Ephedrine 5 mg, 0.1 mL, Route: IVP, Drug form: INJ, Q5Min, Dosing Weight 83.182, kg, PRN Low Blood Pressure, Start date: 07/22/16 7:02:00 [employer]AM[employer] INST[employer], Duration: 12 hr, Stop date: 07/22/16 19:01:00 CSTNotes: (Same as: ePHEDrine Sulfate) Inactive 07/22/2016 [facility] Oxycodone 5 mg, 1 tab, Route: PO, Drug form: TAB, Q4H, Dosing Weight 83.182, kg, PRN Pain Score 1-3, Start date: 07/22/16 7:02:00 ARMAMENT INST[employer]ER, Duration: 12 hr, Stop date: 07/22/16 19:01:00 CSTNotes: (Same as: Roxicodone) Inactive 07/22/2016 [facility] Morphine 2 mg, 1 mL, Route: IVP, Drug form: INJ, Q5Min, Dosing Weight 83.182, kg, PRN Pain Score 4-6, Start date: 07/22/16 7:02:00 ARMAMENT INST[employer]ER, Duration: 5 doses or times, Stop date: 07/22/16 19:00:00 CSTNotes: (Same as:MORPhine Sulfate) Inactive 07/22/2016 [facility] Hydralazine 10 mg, 0.5 mL, Route: IVP, Drug form: INJ, Q20Min, Dosing Weight 83.182, kg, PRN Elevated BP, Start date: 07/22/16 7:02:00 ARMAMENT INST[employer]ER, Duration: 2 doses or times, Stop date: 07/22/16 19:00:00 CSTNotes: (Same as: Apresoline) Push over 5 minutes Inactive 07/22/2016 [facility] Labetalol 10 mg, 2 mL, Route: IVP, Drug form: INJ, Q5Min, Dosing Weight 83.182, kg, PRN Elevated BP, Start date: 07/22/16 7:02:00 ARMAMENT INSTALLER, Duration: 5 doses or times, Stop date: 07/22/16 19:00:00 CSTNotes: (Same as: Normodyne, Trandate) Push over 2 minutes Give bolus over 2-3 minutes. Inactive 07/22/2016 [facility] vancomycin + sodium chloride 0.9% INJ 250 mL 1,000 mg, Route: IVPB, PRE OP, Start date: 07/22/16 6:00:00 ARMAMENT INST[employer]ER, Duration: 12 hr, Stop date: 07/22/16 17:59:00 CSTNotes: TIME CRITICAL MEDICATION (Same As: Vancocin) Infusion rate 2001 mg: infuse over 2.5 hours MEDICATION WASTE Product Size: 1000 mg Product Wasted: ___ mg Inactive 07/22/2016 [facility] Lactated Ringers 1,000 mL 1,000 mL, Rate: 70 ml/hr, Infuse over: 14.3 hr, Route: IV, Dosing Weight 83.182 kg, Total Volume: 1,000, Start date: 07/22/16 6:00:00 ARMAMENT INSTALLER, Duration: 12 hr, Stop date: 07/22/16 17:59:00 ARMAMENT INSTALLER Inactive 07/22/2016 [facility] omeprazole 40 mg oral delayed release capsule 40 mg=1 cap, PO, Bedtime, # 90 cap, 0 Refill(s) Active 07/17/2016 [facility] Olopatadine hydrochloride 0.665 MG/ACTUAT Metered Dose Nasal [place] [PATANASE] 2 spray, NASAL, BID, # 30.5 gm, 0 Refill(s) Active 07/17/2016 [facility] tramadol hydrochloride 50 MG Oral Tablet 50 mg=1 tab, PO, Q4H, PRN Pain, # 60 tab, 0 Refill(s) Active 07/17/2016 [facility] mometasone furoate 0.05 MG/ACTUAT Metered Dose Nasal [place] [Nasonex] 2 spray, NASAL, Daily, PRN for allergy symptoms, # 17 gm, 0 Refill(s) Active 07/17/2016 [facility] rivaroxaban 20 MG Oral Tablet [Xarelto] 20 mg=1 tab, PO, QPM, # 30 tab, 3 Refill(s) No Longer Active 07/17/2016 [facility] phenazopyridine 200 mg oral tablet 200 mg=1 tab, PO, TID, PRN Dysuria, # 6 tab, 0 Refill(s) Active 07/17/2016 [facility] Cyclosporine 0.5 MG/ML Ophthalmic Suspension [Restasis] 1 drp, BOTH EYES, BID, # 30 mL, 0 Refill(s) Active 07/17/2016 [facility] simvastatin 10 mg oral tablet 10 mg=1 tab, PO, Bedtime, # 90 tab, 1 Refill(s) Active 07/17/2016 [facility] amLODIPine 2.5 mg oral tablet 2.5 mg=1 tab, PO, Daily, # 30 tab, 0 Refill(s) Active 07/17/2016 [facility] losartan 25 mg oral tablet 25 mg=1 tab, PO, Daily, # 30 tab, 1 Refill(s) Active 07/17/2016 [facility] Symbicort 80/4.5 inhalation aerosol with adapter 2 puff, INHALATION, BID, # 6.9 gm, 0 Refill(s) Active 07/17/2016 [facility] metoprolol 25 mg oral tablet, extended release 25 mg=1 tab, PO, BID, # 90 tab, 1 Refill(s) Active 07/17/2016 [facility] Albuterol 0.833 MG/ML / Ipratropium [place] 0.167 MG/ML Inhalant Solution 3 mL, INHALATION, Q6H, PRN Wheezing, # 30 ea, 1 Refill(s) Active 07/17/2016 [facility] Azelastine hydrochloride 0.137 MG/ACTUAT / Fluticasone propionate 0.05 MG/ACTUAT Metered Dose Nasal [place] 2 spray, NASAL, BID, # 23 gm, 1 Refill(s) Active 07/17/2016 [facility] lysine 500 mg oral tablet 1,000 mg=2 tab, PO, Daily, 0 Refill(s) Active 07/17/2016 [facility] temazepam 30 mg oral capsule 30 mg=1 cap, PO, Bedtime, PRN Sleep, # 14 cap, 0 Refill(s) Active 07/17/2016 [facility] levocetirizine 5 mg oral tablet 5 mg=1 tab, PO, Bedtime, PRN as needed for allergy symptoms, # 30 tab, 0 Refill(s) Active 07/17/2016 [facility] Demerol HCl 50 mg, Route: IM, ONCE, Start date: 01/17/12 18:39:00, Stop date: 01/17/12 18:39:00 IM No Longer Active Mark 01/17/2012 [facility] Demerol HCl 12.5 mg, Route: IVP, ONCE, Start date: 01/17/12 18:10:00, Stop date: 01/17/12 18:10:00 IVP No Longer Active Mark 01/17/2012 [facility] Demerol HCl 12.5 mg, Route: IVP, ONCE, Start date: 01/17/12 18:02:00, Stop date: 01/17/12 18:02:00 IVP No Longer Active Mark 01/17/2012 [facility] fentanyl 50 microgram, Route: IVP, ONCE, Start date: 01/17/12 17:29:00, Stop date: 01/17/12 17:29:00 IVP No Longer Active Mark 01/17/2012 [facility] fentanyl 50 microgram, Route: IVP, ONCE, Start date: 01/17/12 17:28:00, Stop date: 01/17/12 17:28:00 IVP No Longer Active Mark 01/17/2012 [facility] lidocaine 0.1 mL, Route: IV, Drug form: INJ, ONCALL, Start date: 01/17/12 6:00:00, Duration: 12 hr, Stop date: 01/17/12 17:59:00 IV No Longer Active Mark 01/17/2012 [facility] Lactated Ringers Injection IV 1,000 mL 1,000 mL, Rate: 100 ml/hr, Infuse over: 10 hr, Route: IV, Dosing Weight 71.364 kg, Total Volume: 1,000, Start date: 01/17/12 6:00:00, Duration: 12 hr, Stop date: 01/17/12 17:59:00 IV No Longer Active Mark 01/17/2012 [facility] vancomycin 1 gm, 250 mL, Route: IVPB, Drug form: INJ, ONCALL, Start date: 01/17/12 6:00:00, Duration: 1 doses or times IVPB No Longer Active Fen 01/17/2012 [facility] Allergies, Adverse Reactions, Alerts Substance Category Reaction Severity Reaction type Status Date Reported Comments Source codeine<sup>1, 2</sup> Assertion vomit Drug allergy Active 11/20/2011 Data migrated from [employer] on 10/03/15. Originally documented as CODEINE. Data migrated from [employer] on 09/13/15. Originally documented as CODEINE. [facility] Food Strawberries<sup>3</sup> Assertion hives Drug allergy Active 11/20/2011 Data migrated from [employer] on 09/13/15. Originally documented as STRAWBERRIES. [facility] nonsteroidal anti-inflammatory agents<sup>4</sup> Assertion Drug allergy Active 11/20/2011 Data migrated from [employer] on 03/06/15. Originally documented as NSAIDS. [facility] penicillins<sup>5</sup> Assertion hives Drug allergy Active 11/20/2011 Data migrated from [employer] on 03/06/15. Originally documented as PENICILLIN. [facility] sulfa drugs<sup>6</sup> Assertion skin disorder Drug allergy Active 11/20/2011 Data migrated from [employer] on 03/06/15. Originally documented as SULFA. [facility] penicillins<sup>1</sup> Assertion hives Drug allergy Active 11/20/2011 Data migrated from [employer] on 03/06/15. Originally documented as PENICILLIN. [facility] sulfa drugs<sup>2</sup> Assertion skin disorder Drug allergy Active 11/20/2011 Data migrated from [employer] on 03/06/15. Originally documented as SULFA. [facility] codeine<sup>3, 4</sup> Assertion vomit Drug allergy Active 11/20/2011 Data migrated from [employer] on 10/03/15. Originally documented as CODEINE. Data migrated from [employer] on 09/13/15. Originally documented as CODEINE. [facility] nonsteroidal anti-inflammatory agents<sup>5</sup> Assertion Drug allergy Active 11/20/2011 Data migrated from [employer] on 03/06/15. Originally documented as NSAIDS. [facility] Food Strawberries<sup>6</sup> Assertion hives Drug allergy Active 11/20/2011 Data migrated from [employer] on 09/13/15. Originally documented as STRAWBERRIES. [facility] codeine Assertion vomit Drug allergy Active [facility] Food Strawberries Assertion hives Drug allergy Active [facility] NSAIDs Assertion stomach Drug allergy Active [facility] penicillins Assertion hives Drug allergy Active [facility] sulfa drugs Assertion skin disorder Drug allergy Active [facility] Immunizations Immunization Date Given Site Status Last Updated Comments Source pneumococcal 13-valent vaccine 07/28/2016 Not Given [facility] Results Order Name Results Value Reference Range Date Interpretation Comments Source CHEM PANEL eGFR 69 08/14/2017 Result Comment: The eGFR is calculated using the CKD-EPI formula. In most young, healthy individuals the eGFR will be >90 mL/min/1.73m2. The eGFR declines with age. An eGFR of 60-89 may be normal in some populations, particularly the elderly, for whom the CKD-EPI formula has not been extensively validated. Use of the eGFR is not recommended in the following populations:

Individuals with unstable creatinine concentrations, including patients and those with serious co-morbid conditions.

Patients with extremes in muscle mass or diet.

The data above are obtained from the National Kid[employer] Disease Education Program (NKDEP) which additionally recommends that when the eGFR is used in patients with extremes of body mass index for purposes of drug dosing, the eGFR should be multiplied by the estimated BMI. [facility] CHEM PANEL Calcium Lvl 8.5 8.5 - 10.5 08/14/2017 [facility] CHEM PANEL CO2 24 24 - 32 08/14/2017 [facility] CHEM PANEL Potassium Lvl 3.3 3.5 - 5.1 08/14/2017 [facility] CHEM PANEL Sodium Lvl 145 135 - 145 08/14/2017 [facility] CHEM PANEL Chloride Lvl 112 95 - 109 08/14/2017 [facility] CHEM PANEL Glucose Lvl 90 70 - 99 08/14/2017 [facility] CHEM PANEL Creatinine Lvl 0.80 0.50 - 1.40 08/14/2017 [facility] CHEM PANEL BUN 12 7 - 22 08/14/2017 [facility] CHEM PANEL AGAP 12.3 10.0 - 20.0 08/14/2017 [facility] HEMATOLOGY WBC 9.7 3.7 - 10.4 08/14/2017 [facility] HEMATOLOGY RDW 15.0 11.5 - 14.5 08/14/2017 [facility] HEMATOLOGY MPV 10.3 7.4 - 10.4 08/14/2017 [facility] HEMATOLOGY Platelet 145 133 - 450 08/14/2017 [facility] HEMATOLOGY RBC 3.60 4.20 - 5.40 08/14/2017 [facility] HEMATOLOGY Hgb 10.4 12.0 - 16.0 08/14/2017 [facility] HEMATOLOGY Hct 31.7 36.0 - 48.0 08/14/2017 [facility] MCH 28.9 27.0 - 31.0 08/14/2017 [facility] MCHC 32.8 32.0 - 36.0 08/14/2017 [facility] HEMATOLOGY MCV 88.0 80.0 - 98.0 08/14/2017 [facility] HEMATOLOGY Lymphocytes # 1.2 1.0 - 5.5 08/14/2017 [facility] HEMATOLOGY Eosinophils # 0.4 0.0 - 0.5 08/14/2017 [facility] HEMATOLOGY Monocytes # 0.8 0.0 - 0.8 08/14/2017 [facility] HEMATOLOGY Eosinophils 4.5 0.0 - 4.0 08/14/2017 [facility] HEMATOLOGY Segs-Bands # 7.2 1.5 - 8.1 08/14/2017 [facility] HEMATOLOGY Basophils 0.4 0.0 - 1.0 08/14/2017 [facility] HEMATOLOGY Monocytes 8.0 2.0 - 12.0 08/14/2017 [facility] HEMATOLOGY Segs 74.4 45.0 - 75.0 08/14/2017 [facility] HEMATOLOGY Lymphocytes 12.7 20.0 - 40.0 08/14/2017 [facility] [facility] CHEM PANEL Globulin 3.5 2.7 - 4.2 08/13/2017 [facility] CHEM PANEL A/G Ratio 0.7 0.7 - 1.6 08/13/2017 [facility] CHEM PANEL Bili Direct 0.1 0.0 - 0.3 08/13/2017 [facility] CHEM PANEL Bili Total 0.4 0.2 - 1.3 08/13/2017 [facility] CHEM PANEL Bili Indirect 0.3 0.0 - 1.0 08/13/2017 [facility] CHEM PANEL AST 21 0 - 37 08/13/2017 [facility] CHEM PANEL Alk Phos 54 39 - 136 08/13/2017 [facility] CHEM PANEL ALT 11 0 - 65 08/13/2017 [facility] CHEM PANEL Albumin Lvl 2.5 3.5 - 5.0 08/13/2017 [facility] CHEM PANEL Total Protein 6.0 6.4 - 8.4 08/13/2017 [facility] CHEM PANEL Lactic Acid Lvl 1.5 0.5 - 2.2 08/13/2017 [facility] CHEM PANEL eGFR 54 08/13/2017 Result Comment: The eGFR is calculated using the CKD-EPI formula. In most young, healthy individuals the eGFR will be >90 mL/min/1.73m2. The eGFR declines with age. An eGFR of 60-89 may be normal in some populations, particularly the elderly, for whom the CKD-EPI formula has not been extensively validated. Use of the eGFR is not recommended in the following populations:

Individuals with unstable creatinine concentrations, including patients and those with serious co-morbid conditions.

Patients with extremes in muscle mass or diet.

The data above are obtained from the National Kidney Disease Education Program (NKDEP) which additionally recommends that when the eGFR is used in patients with extremes of body mass index for purposes of drug dosing, the eGFR should be multiplied by the estimated BMI. [facility] CHEM PANEL BUN 17 7 - 22 08/13/2017 [facility] CHEM PANEL Glucose Lvl 87 70 - 99 08/13/2017 [facility] CHEM PANEL Creatinine Lvl 0.98 0.50 - 1.40 08/13/2017 [facility] CHEM PANEL Sodium Lvl 144 135 - 145 08/13/2017 [facility] CHEM PANEL Chloride Lvl 112 95 - 109 08/13/2017 [facility] CHEM PANEL Potassium Lvl 3.9 3.5 - 5.1 08/13/2017 [facility] CHEM PANEL CO2 24 24 - 32 08/13/2017 [facility] CHEM PANEL Calcium Lvl 8.3 8.5 - 10.5 08/13/2017 [facility] CHEM PANEL AGAP 11.9 10.0 - 20.0 08/13/2017 [facility] CHEM PANEL Magnesium Lvl 2.1 1.8 - 2.4 08/13/2017 [facility] HEMATOLOGY MCHC 32.5 32.0 - 36.0 08/13/2017 [facility] HEMATOLOGY RDW 15.3 11.5 - 14.5 08/13/2017 [facility] Hgb 10.6 12.0 - 16.0 08/13/2017 [facility] HEMATOLOGY Hct 32.6 36.0 - 48.0 08/13/2017 [facility] HEMATOLOGY Platelet 111 133 - 450 08/13/2017 [facility] HEMATOLOGY MPV 11.0 7.4 - 10.4 08/13/2017 [facility] HEMATOLOGY MCV 87.9 80.0 - 98.0 08/13/2017 [facility] HEMATOLOGY MCH 28.6 27.0 - 31.0 08/13/2017 [facility] HEMATOLOGY RBC 3.70 4.20 - 5.40 08/13/2017 [facility] WBC 10.9 3.7 - 10.4 08/13/2017 [facility] MOLECULAR DIAGNOSTIC Influenza A PCR Negative (08/12/17 5:08 PM) Negative 08/12/2017 [facility] MOLECULAR DIAGNOSTIC Influenza B PCR Negative (08/12/17 5:08 PM) Negative 08/12/2017 [facility] DIAGNOSTIC RSV PCR Negative (08/12/17 5:08 PM) Negative 08/12/2017 [facility] MOLECULAR DIAGNOSTIC Source Respiratory Panel PCR [employer] Swab (08/12/17 5:08 PM) 08/12/2017 [facility] CHEM PANEL Lactic Acid Lvl 0.9 0.5 - 2.2 08/12/2017 [facility] CHEM PANEL Magnesium Lvl 1.8 1.8 - 2.4 08/12/2017 [facility] ELECTROLYTES eGFR 51 08/12/2017 Result Comment: The eGFR is calculated using the CKD-EPI formula. In most young, healthy individuals the eGFR will be >90 mL/min/1.73m2. The eGFR declines with age. An eGFR of 60-89 may be normal in some populations, particularly the elderly, for whom the CKD-EPI formula has not been extensively validated. Use of the eGFR is not recommended in the following populations:

Individuals with unstable creatinine concentrations, including patients and those with serious co-morbid conditions.

Patients with extremes in muscle mass or diet.

The data above are obtained from the National Kidney Disease Education Program (NKDEP) which additionally recommends that when the eGFR is used in patients with extremes of body mass index for purposes of drug dosing, the eGFR should be multiplied by the estimated BMI. [facility] CHEM PANEL Procalcitonin Lvl 0.41 0.00 - 0.10 08/12/2017 [facility] ELECTROLYTES Potassium Lvl 3.5 3.5 - 5.1 08/12/2017 [facility] ELECTROLYTES AGAP 13.5 10.0 - 20.0 08/12/2017 [facility] ELECTROLYTES CO2 23 24 - 32 08/12/2017 [facility] ELECTROLYTES Calcium Lvl 8.5 8.5 - 10.5 08/12/2017 [facility] ELECTROLYTES Glucose Lvl 103 70 - 99 08/12/2017 [facility] ELECTROLYTES BUN 17 7 - 22 08/12/2017 [facility] ELECTROLYTES Creatinine Lvl 1.02 0.50 - 1.40 08/12/2017 [facility] ELECTROLYTES Sodium Lvl 143 135 - 145 08/12/2017 [facility] ELECTROLYTES Chloride Lvl 110 95 - 109 08/12/2017 [facility] MCH 28.7 27.0 - 31.0 08/12/2017 [facility] HEMATOLOGY Hct 36.5 36.0 - 48.0 08/12/2017 [facility] HEMATOLOGY MCV 87.7 80.0 - 98.0 08/12/2017 [facility] HEMATOLOGY WBC 18.6 3.7 - 10.4 08/12/2017 [facility] RBC 4.16 4.20 - 5.40 08/12/2017 [facility] Hgb 11.9 12.0 - 16.0 08/12/2017 [facility] MCHC 32.7 32.0 - 36.0 08/12/2017 [facility] HEMATOLOGY RDW 15.1 11.5 - 14.5 08/12/2017 [facility] HEMATOLOGY Platelet 132 133 - 450 08/12/2017 [facility] MPV 10.7 7.4 - 10.4 08/12/2017 [facility] HEMATOLOGY Basophils 0.3 0.0 - 1.0 08/12/2017 [facility] HEMATOLOGY Segs-Bands # 14.9 1.5 - 8.1 08/12/2017 [facility] HEMATOLOGY Monocytes # 1.6 0.0 - 0.8 08/12/2017 [facility] HEMATOLOGY Basophils # 0.1 0.0 - 0.2 08/12/2017 [facility] HEMATOLOGY Lymphocytes # 2.0 1.0 - 5.5 08/12/2017 [facility] HEMATOLOGY Lymphocytes 10.9 20.0 - 40.0 08/12/2017 [facility] HEMATOLOGY Monocytes 8.8 2.0 - 12.0 08/12/2017 [facility] Segs 80.0 45.0 - 75.0 08/12/2017 [facility] CHEM PANEL Lactic Acid Lvl 0.9 0.5 - 2.2 08/12/2017 [facility] BACTERIAL - SEROLOGY Source Strep Urine *NA* (08/11/17 8:45 PM) 08/12/2017 [facility] BACTERIAL - SEROLOGY Strep pneumoniae Ag Negative (08/11/17 8:45 PM) Negative 08/12/2017 [facility] URINE AND STOOL UA Urobilinogen <=1.0 mg/dL 0.1 - 1.0 08/12/2017 [facility] URINE AND STOOL UA Sq Epi None Seen 08/12/2017 [facility] URINE AND STOOL UA Ketones Trace mg/dL Negative mg/dL 08/12/2017 [facility] URINE AND STOOL UA Mucus Moderate /LPF None Seen /LPF 08/12/2017 [facility] URINE AND STOOL UA Hyal Cast 5 0 - 2 08/12/2017 [facility] URINE AND STOOL UA Bili Negative *NA* (08/11/17 8:45 PM) Negative 08/12/2017 [facility] URINE AND STOOL UA Blood Small *ABN* (08/11/17 8:45 PM) Negative 08/12/2017 [facility] URINE AND STOOL UA Nitrite Negative (08/11/17 8:45 PM) Negative 08/12/2017 [facility] URINE AND STOOL UA Leuk Est Small *ABN* (08/11/17 8:45 PM) Negative 08/12/2017 [facility] URINE AND STOOL UA Bacteria Many /HPF None Seen /HPF 08/12/2017 [facility] URINE AND STOOL UA WBC 9 0 - 5 08/12/2017 [facility] URINE AND STOOL UA RBC 1 0 - 2 08/12/2017 [facility] URINE AND STOOL UA Glucose 50 mg/dL Negative mg/dL 08/12/2017 [facility] URINE AND STOOL UA Protein 30 mg/dL Negative mg/dL 08/12/2017 [facility] URINE AND STOOL UA Spec Grav 1.017 <=1.030 08/12/2017 [facility] URINE AND STOOL UA Turbidity Clear (08/11/17 8:45 PM) Clear 08/12/2017 [facility] URINE AND STOOL UA Color Yellow *NA* (08/11/17 8:45 PM) Yellow 08/12/2017 [facility] URINE AND STOOL UA pH 5.0 5.0 - 8.0 08/12/2017 [facility] CARDIAC ENZYMES CK MB 1.9 0.5 - 3.6 08/12/2017 [facility] CARDIAC ENZYMES Total CK 570 12 - 191 08/12/2017 [facility] CARDIAC ENZYMES BNP 231 <=100 pg/mL 08/12/2017 [facility] CARDIAC ENZYMES Troponin-I 0.03 0.00 - 0.40 08/12/2017 [facility] CARDIAC ENZYMES CK MB Index 0.3 0.0 - 2.5 08/12/2017 [facility] CHEM PANEL AST 41 0 - 37 08/12/2017 [facility] CHEM PANEL ALT 11 0 - 65 08/12/2017 [facility] CHEM PANEL Albumin Lvl 3.4 3.5 - 5.0 08/12/2017 [facility] CHEM PANEL Total Protein 7.3 6.4 - 8.4 08/12/2017 [facility] CHEM PANEL B/C Ratio 13 6 - 25 08/12/2017 [facility] CHEM PANEL Bili Total 0.8 0.2 - 1.3 08/12/2017 [facility] CHEM PANEL Alk Phos 63 39 - 136 08/12/2017 [facility] CHEM PANEL A/G Ratio 0.9 0.7 - 1.6 08/12/2017 [facility] CHEM PANEL Globulin 3.9 2.7 - 4.2 08/12/2017 [facility] CHEM PANEL Lipase Lvl 40 73 - 393 08/12/2017 [facility] CHEM PANEL Magnesium Lvl 2.1 1.8 - 2.4 08/12/2017 [facility] HEMATOLOGY PT 21.4 12.0 - 14.7 08/12/2017 [facility] HEMATOLOGY INR 1.84 0.85 - 1.17 08/12/2017 [facility] HEMATOLOGY PTT 45.1 22.9 - 35.8 08/12/2017 [facility] HEMATOLOGY Basophils 0.3 0.0 - 1.0 08/12/2017 [facility] HEMATOLOGY Monocytes 9.3 2.0 - 12.0 08/12/2017 [facility] HEMATOLOGY Segs 80.7 45.0 - 75.0 08/12/2017 [facility] HEMATOLOGY Segs-Bands # 18.2 1.5 - 8.1 08/12/2017 [facility] HEMATOLOGY Lymphocytes 9.7 20.0 - 40.0 08/12/2017 [facility] HEMATOLOGY Basophils # 0.1 0.0 - 0.2 08/12/2017 [facility] HEMATOLOGY Lymphocytes # 2.2 1.0 - 5.5 08/12/2017 [facility] HEMATOLOGY Monocytes # 2.1 0.0 - 0.8 08/12/2017 [facility] CHEM PANEL eGFR 39 07/28/2016 Result Comment: The eGFR is calculated using the CKD-EPI formula. In most young, healthy individuals the eGFR will be >90 mL/min/1.73m2. The eGFR declines with age. An eGFR of 60-89 may be normal in some populations, particularly the elderly, for whom the CKD-EPI formula has not been extensively validated. Use of the eGFR is not recommended in the following populations:

Individuals with unstable creatinine concentrations, including patients and those with serious co-morbid conditions.

Patients with extremes in muscle mass or diet.

The data above are obtained from the National Kidney Disease Education Program (NKDEP) which additionally recommends that when the eGFR is used in patients with extremes of body mass index for purposes of drug dosing, the eGFR should be multiplied by the estimated BMI. [facility] CHEM PANEL Calcium Lvl 8.4 8.5 - 10.5 07/28/2016 [facility] CHEM PANEL CO2 26 24 - 32 07/28/2016 [facility] CHEM PANEL Potassium Lvl 3.4 3.5 - 5.1 07/28/2016 [facility] CHEM PANEL Chloride Lvl 103 95 - 109 07/28/2016 [facility] CHEM PANEL Creatinine Lvl 1.27 0.50 - 1.40 07/28/2016 [facility] CHEM PANEL BUN 22 7 - 22 07/28/2016 [facility] CHEM PANEL Glucose Lvl 97 70 - 99 07/28/2016 [facility] CHEM PANEL Sodium Lvl 140 135 - 145 07/28/2016 [facility] CHEM PANEL AGAP 14.4 10.0 - 20.0 07/28/2016 [facility] CHEM PANEL Magnesium Lvl 2.5 1.8 - 2.4 07/28/2016 [facility] CHEM PANEL Phosphorus 3.7 2.5 - 4.5 07/28/2016 [facility] HEMATOLOGY Platelet 201 133 - 450 07/28/2016 [facility] HEMATOLOGY MCH 26.2 27.0 - 31.0 07/28/2016 [facility] HEMATOLOGY RDW 15.9 11.5 - 14.5 07/28/2016 [facility] HEMATOLOGY MCHC 32.6 32.0 - 36.0 07/28/2016 [facility] HEMATOLOGY MPV 9.6 7.4 - 10.4 07/28/2016 [facility] HEMATOLOGY Hgb 10.5 12.0 - 16.0 07/28/2016 [facility] HEMATOLOGY RBC 4.03 4.20 - 5.40 07/28/2016 [facility] HEMATOLOGY WBC 9.0 3.7 - 10.4 07/28/2016 [facility] HEMATOLOGY MCV 80.2 80.0 - 98.0 07/28/2016 [facility] HEMATOLOGY Hct 32.3 36.0 - 48.0 07/28/2016 [facility] HEMATOLOGY Segs 69.2 45.0 - 75.0 07/28/2016 [facility] HEMATOLOGY Monocytes 10.6 2.0 - 12.0 07/28/2016 [facility] HEMATOLOGY Lymphocytes 14.2 20.0 - 40.0 07/28/2016 [facility] HEMATOLOGY Eosinophils 5.2 0.0 - 4.0 07/28/2016 [facility] HEMATOLOGY Basophils 0.8 0.0 - 1.0 07/28/2016 [facility] HEMATOLOGY Segs-Bands # 6.2 1.5 - 8.1 07/28/2016 [facility] HEMATOLOGY Lymphocytes # 1.3 1.0 - 5.5 07/28/2016 [facility] HEMATOLOGY Monocytes # 1.0 0.0 - 0.8 07/28/2016 [facility] HEMATOLOGY Eosinophils # 0.5 0.0 - 0.5 07/28/2016 [facility] HEMATOLOGY Basophils # 0.1 0.0 - 0.2 07/28/2016 [facility] RAPID Grp A Strep Scr Negative (07/26/16 3:35 AM) Negative 07/26/2016 [facility] CHEM PANEL Lactic Acid Lvl 1.4 0.5 - 2.2 07/26/2016 [facility] CHEM PANEL Phosphorus 3.0 2.5 - 4.5 07/26/2016 [facility] CHEM PANEL A/G Ratio 0.8 0.7 - 1.6 07/26/2016 [facility] CHEM PANEL Globulin 3.7 2.7 - 4.2 07/26/2016 [facility] CHEM PANEL B/C Ratio 10 6 - 25 07/26/2016 [facility] CHEM PANEL AGAP 14.7 10.0 - 20.0 07/26/2016 [facility] CHEM PANEL CO2 23 24 - 32 07/26/2016 [facility] CHEM PANEL Chloride Lvl 103 95 - 109 07/26/2016 [facility] CHEM PANEL Total Protein 6.7 6.4 - 8.4 07/26/2016 [facility] CHEM PANEL Calcium Lvl 8.3 8.5 - 10.5 07/26/2016 [facility] CHEM PANEL eGFR 63 07/26/2016 Result Comment: The eGFR is calculated using the CKD-EPI formula. In most young, healthy individuals the eGFR will be >90 mL/min/1.73m2. The eGFR declines with age. An eGFR of 60-89 may be normal in some populations, particularly the elderly, for whom the CKD-EPI formula has not been extensively validated. Use of the eGFR is not recommended in the following populations:

Individuals with unstable creatinine concentrations, including patients and those with serious co-morbid conditions.

Patients with extremes in muscle mass or diet.

The data above are obtained from the National Kidney Disease Education Program (NKDEP) which additionally recommends that when the eGFR is used in patients with extremes of body mass index for purposes of drug dosing, the eGFR should be multiplied by the estimated BMI. [facility] CHEM PANEL Albumin Lvl 3.0 3.5 - 5.0 07/26/2016 [facility] CHEM PANEL AST 17 0 - 37 07/26/2016 [facility] CHEM PANEL Bili Total 1.1 0.2 - 1.3 07/26/2016 [facility] CHEM PANEL Alk Phos 86 39 - 136 07/26/2016 [facility] CHEM PANEL ALT 13 0 - 65 07/26/2016 [facility] CHEM PANEL BUN 9 7 - 22 07/26/2016 [facility] CHEM PANEL Glucose Lvl 108 70 - 99 07/26/2016 [facility] CHEM PANEL Potassium Lvl 3.7 3.5 - 5.1 07/26/2016 [facility] CHEM PANEL Sodium Lvl 137 135 - 145 07/26/2016 [facility] CHEM PANEL Creatinine Lvl 0.86 0.50 - 1.40 07/26/2016 [facility] CHEM PANEL Magnesium Lvl 1.7 1.8 - 2.4 07/26/2016 [facility] HEMATOLOGY Segs 76.8 45.0 - 75.0 07/26/2016 [facility] HEMATOLOGY Lymphocytes 10.5 20.0 - 40.0 07/26/2016 [facility] HEMATOLOGY Basophils 0.5 0.0 - 1.0 07/26/2016 [facility] HEMATOLOGY Segs-Bands # 12.9 1.5 - 8.1 07/26/2016 [facility] HEMATOLOGY Monocytes 12.1 2.0 - 12.0 07/26/2016 [facility] HEMATOLOGY Eosinophils 0.1 0.0 - 4.0 07/26/2016 [facility] HEMATOLOGY Lymphocytes # 1.8 1.0 - 5.5 07/26/2016 [facility] HEMATOLOGY Basophils # 0.1 0.0 - 0.2 07/26/2016 [facility] HEMATOLOGY Monocytes # 2.0 0.0 - 0.8 07/26/2016 [facility] HEMATOLOGY Hct 33.1 36.0 - 48.0 07/26/2016 [facility] HEMATOLOGY WBC 16.8 3.7 - 10.4 07/26/2016 [facility] HEMATOLOGY Hgb 10.7 12.0 - 16.0 07/26/2016 [facility] HEMATOLOGY MCH 26.0 27.0 - 31.0 07/26/2016 [facility] HEMATOLOGY RDW 15.3 11.5 - 14.5 07/26/2016 [facility] HEMATOLOGY MCV 80.4 80.0 - 98.0 07/26/2016 [facility] HEMATOLOGY MCHC 32.3 32.0 - 36.0 07/26/2016 [facility] HEMATOLOGY Platelet 180 133 - 450 07/26/2016 [facility] HEMATOLOGY MPV 9.1 7.4 - 10.4 07/26/2016 [facility] HEMATOLOGY RBC 4.12 4.20 - 5.40 07/26/2016 [facility] CHEM PANEL Lactic Acid Lvl 2.3 0.5 - 2.2 07/26/2016 [facility] URINE AND STOOL UA Sq Epi Few /LPF Few /LPF 07/26/2016 [facility] URINE AND STOOL UA Bacteria Few /HPF None Seen /HPF 07/26/2016 [facility] URINE AND STOOL UA RBC 0-2 /HPF 0 - 2 07/26/2016 [facility] URINE AND STOOL UA WBC 3-5 /HPF None Seen /HPF 07/26/2016 [facility] URINE AND STOOL UA Leuk Est Negative (07/25/16 10:52 PM) Negative 07/26/2016 [facility] URINE AND STOOL UA Nitrite Negative (07/25/16 10:52 PM) Negative 07/26/2016 [facility] URINE AND STOOL UA Urobilinogen 1.0 0.1 - 1.0 07/26/2016 [facility] URINE AND STOOL UA Color Yellow *NA* (07/25/16 10:52 PM) Yellow 07/26/2016 [facility] URINE AND STOOL UA Turbidity Slight Cloudy (07/25/16 10:52 PM) Clear 07/26/2016 [facility] URINE AND STOOL UA Spec Grav 1.015 <=1.030 07/26/2016 [facility] URINE AND STOOL UA Glucose Negative (07/25/16 10:52 PM) Negative 07/26/2016 [facility] URINE AND STOOL UA pH 5.5 5.0 - 8.0 07/26/2016 [facility] URINE AND STOOL UA Protein 30 mg/dL Negative mg/dL 07/26/2016 [facility] URINE AND STOOL UA Bili Negative *NA* (07/25/16 10:52 PM) Negative 07/26/2016 [facility] URINE AND STOOL UA Ketones 15 mg/dL Negative mg/dL 07/26/2016 [facility] URINE AND STOOL UA Blood Moderate *ABN* (07/25/16 10:52 PM) Negative 07/26/2016 [facility] CARDIAC ENZYMES Troponin-I 0.02 0.00 - 0.40 07/26/2016 [facility] CHEM PANEL Procalcitonin Lvl 0.14 0.00 - 0.10 07/26/2016 [facility] CHEM PANEL Lactic Acid Lvl 2.1 0.5 - 2.2 07/26/2016 [facility] HEMATOLOGY PTT 39.3 22.9 - 35.8 07/26/2016 [facility] HEMATOLOGY INR 1.42 0.85 - 1.17 07/26/2016 [facility] HEMATOLOGY PT 17.6 12.0 - 14.7 07/26/2016 [facility] CARDIAC ENZYMES Troponin-I <0.02 0.00 - 0.40 07/25/2016 [facility] CHEM PANEL eGFR 57 07/25/2016 Result Comment: The eGFR is calculated using the CKD-EPI formula. In most young, healthy individuals the eGFR will be >90 mL/min/1.73m2. The eGFR declines with age. An eGFR of 60-89 may be normal in some populations, particularly the elderly, for whom the CKD-EPI formula has not been extensively validated. Use of the eGFR is not recommended in the following populations:

Individuals with unstable creatinine concentrations, including patients and those with serious co-morbid conditions.

Patients with extremes in muscle mass or diet.

The data above are obtained from the National Kidney Disease Education Program (NKDEP) which additionally recommends that when the eGFR is used in patients with extremes of body mass index for purposes of drug dosing, the eGFR should be multiplied by the estimated BMI. [facility] CHEM PANEL Creatinine Lvl 0.94 0.50 - 1.40 07/25/2016 [facility] CHEM PANEL Potassium Lvl 3.8 3.5 - 5.1 07/25/2016 [facility] CHEM PANEL Sodium Lvl 138 135 - 145 07/25/2016 [facility] CHEM PANEL BUN 10 7 - 22 07/25/2016 [facility] CHEM PANEL Chloride Lvl 99 95 - 109 07/25/2016 [facility] CHEM PANEL Glucose Lvl 123 70 - 99 07/25/2016 [facility] CHEM PANEL CO2 24 24 - 32 07/25/2016 [facility] CHEM PANEL Calcium Lvl 8.8 8.5 - 10.5 07/25/2016 [facility] CHEM PANEL AGAP 18.8 10.0 - 20.0 07/25/2016 [facility] HEMATOLOGY Lymphocytes # 1.0 1.0 - 5.5 07/25/2016 [facility] HEMATOLOGY Monocytes # 1.8 0.0 - 0.8 07/25/2016 [facility] HEMATOLOGY Segs-Bands # 15.3 1.5 - 8.1 07/25/2016 [facility] HEMATOLOGY Monocytes 9.9 2.0 - 12.0 07/25/2016 [facility] HEMATOLOGY Basophils 0.5 0.0 - 1.0 07/25/2016 [facility] HEMATOLOGY Segs 84.0 45.0 - 75.0 07/25/2016 [facility] HEMATOLOGY Lymphocytes 5.6 20.0 - 40.0 07/25/2016 [facility] HEMATOLOGY Basophils # 0.1 0.0 - 0.2 07/25/2016 [facility] HEMATOLOGY PTT 38.3 22.9 - 35.8 07/25/2016 [facility] HEMATOLOGY INR 1.42 0.85 - 1.17 07/25/2016 [facility] HEMATOLOGY PT 17.6 12.0 - 14.7 07/25/2016 [facility] HEMATOLOGY MCHC 32.1 32.0 - 36.0 07/25/2016 [facility] HEMATOLOGY MCH 25.8 27.0 - 31.0 07/25/2016 [facility] HEMATOLOGY MCV 80.1 80.0 - 98.0 07/25/2016 [facility] HEMATOLOGY RBC 4.58 4.20 - 5.40 07/25/2016 [facility] HEMATOLOGY WBC 18.2 3.7 - 10.4 07/25/2016 [facility] HEMATOLOGY MPV 9.7 7.4 - 10.4 07/25/2016 [facility] HEMATOLOGY Platelet 181 133 - 450 07/25/2016 [facility] HEMATOLOGY RDW 15.6 11.5 - 14.5 07/25/2016 [facility] HEMATOLOGY Hct 36.7 36.0 - 48.0 07/25/2016 [facility] HEMATOLOGY Hgb 11.8 12.0 - 16.0 07/25/2016 [facility] BLOOD BANK RESULTS Antibody Scrn Negative (07/17/16 3:08 PM) 07/17/2016 [facility] BLOOD BANK RESULTS ABO/Rh A POS 07/17/2016 [facility] CHEM PANEL Calcium Lvl 9.0 8.5 - 10.5 07/17/2016 [facility] CHEM PANEL Chloride Lvl 106 95 - 109 07/17/2016 [facility] CHEM PANEL CO2 27 24 - 32 07/17/2016 [facility] CHEM PANEL eGFR 52 07/17/2016 Result Comment: The eGFR is calculated using the CKD-EPI formula. In most young, healthy individuals the eGFR will be >90 mL/min/1.73m2. The eGFR declines with age. An eGFR of 60-89 may be normal in some populations, particularly the elderly, for whom the CKD-EPI formula has not been extensively validated. Use of the eGFR is not recommended in the following populations:

Individuals with unstable creatinine concentrations, including patients and those with serious co-morbid conditions.

Patients with extremes in muscle mass or diet.

The data above are obtained from the National Kid[employer] Disease Education Program (NKDEP) which additionally recommends that when the eGFR is used in patients with extremes of body mass index for purposes of drug dosing, the eGFR should be multiplied by the estimated BMI. [facility] CHEM PANEL Sodium Lvl 139 135 - 145 07/17/2016 [facility] CHEM PANEL Potassium Lvl 4.5 3.5 - 5.1 07/17/2016 [facility] CHEM PANEL Creatinine Lvl 1.01 0.50 - 1.40 07/17/2016 [facility] CHEM PANEL Glucose Lvl 88 70 - 99 07/17/2016 [facility] CHEM PANEL BUN 11 7 - 22 07/17/2016 [facility] CHEM PANEL AGAP 10.5 10.0 - 20.0 07/17/2016 [facility] HEMATOLOGY PTT 33.4 22.9 - 35.8 07/17/2016 [facility] HEMATOLOGY PT 14.2 12.0 - 14.7 07/17/2016 [facility] HEMATOLOGY INR 1.08 0.85 - 1.17 07/17/2016 [facility] HEMATOLOGY Eosinophils # 0.3 0.0 - 0.5 07/17/2016 [facility] HEMATOLOGY Basophils # 0.1 0.0 - 0.2 07/17/2016 [facility] HEMATOLOGY Segs 55.3 45.0 - 75.0 07/17/2016 [facility] HEMATOLOGY Segs-Bands # 4.0 1.5 - 8.1 07/17/2016 [facility] HEMATOLOGY Monocytes # 0.8 0.0 - 0.8 07/17/2016 [facility] HEMATOLOGY Lymphocytes 29.3 20.0 - 40.0 07/17/2016 [facility] HEMATOLOGY Eosinophils 3.9 0.0 - 4.0 07/17/2016 [facility] HEMATOLOGY Monocytes 10.5 2.0 - 12.0 07/17/2016 [facility] HEMATOLOGY Lymphocytes # 2.1 1.0 - 5.5 07/17/2016 [facility] HEMATOLOGY Basophils 1.0 0.0 - 1.0 07/17/2016 [facility] HEMATOLOGY MCHC 32.0 32.0 - 36.0 07/17/2016 [facility] HEMATOLOGY MPV 9.6 7.4 - 10.4 07/17/2016 [facility] HEMATOLOGY RDW 15.1 11.5 - 14.5 07/17/2016 [facility] HEMATOLOGY MCH 25.9 27.0 - 31.0 07/17/2016 [facility] HEMATOLOGY Platelet 192 133 - 450 07/17/2016 [facility] HEMATOLOGY MCV 81.0 80.0 - 98.0 07/17/2016 [facility] HEMATOLOGY Hct 39.6 36.0 - 48.0 07/17/2016 [facility] HEMATOLOGY Hgb 12.7 12.0 - 16.0 07/17/2016 [facility] HEMATOLOGY RBC 4.89 4.20 - 5.40 07/17/2016 [facility] HEMATOLOGY WBC 7.3 3.7 - 10.4 07/17/2016 [facility] URINE AND STOOL Micro? Not Indicated *NA* (07/17/16 3:08 PM) 07/17/2016 [facility] URINE AND STOOL UA Nitrite Negative (07/17/16 3:08 PM) Negative 07/17/2016 [facility] URINE AND STOOL UA Glucose Negative mg/dL Negative mg/dL 07/17/2016 [facility] URINE AND STOOL UA Blood Negative (07/17/16 3:08 PM) Negative 07/17/2016 [facility] URINE AND STOOL UA Ketones Negative mg/dL Negative mg/dL 07/17/2016 [facility] URINE AND STOOL UA Bili Negative *NA* (07/17/16 3:08 PM) Negative 07/17/2016 [facility] URINE AND STOOL UA Leuk Est Negative (07/17/16 3:08 PM) Negative 07/17/2016 [facility] URINE AND STOOL UA Protein Negative mg/dL Negative mg/dL 07/17/2016 [facility] URINE AND STOOL UA Urobilinogen 0.2 0.1 - 1.0 07/17/2016 [facility] URINE AND STOOL UA Color Yellow *NA* (07/17/16 3:08 PM) Yellow 07/17/2016 [facility] URINE AND STOOL UA pH 6.0 5.0 - 8.0 07/17/2016 [facility] URINE AND STOOL UA Turbidity Clear (07/17/16 3:08 PM) Clear 07/17/2016 [facility] URINE AND STOOL UA Spec Grav 1.010 <=1.030 07/17/2016 [facility] BLOOD BANK RESULTS ABO/Rh A POS 01/16/2012 Unknown [facility] BLOOD BANK RESULTS Antibody Scrn Negative (01/16/2012 11:55:00) 01/16/2012 Normal [facility] CHEMISTRY Calcium Lvl 9.4 8.5 - 10.5 01/16/2012 Normal [facility] CHEMISTRY CO2 27 24 - 32 01/16/2012 Normal [facility] CHEMISTRY Creatinine Lvl 1.2 0.5 - 1.4 01/16/2012 Normal [facility] CHEMISTRY Chloride Lvl 104 95 - 109 01/16/2012 Normal [facility] CHEMISTRY Glucose Lvl 80 70 - 99 01/16/2012 Normal <sup>1</sup>Interpretive Data: Adult reference range values reflect the clinical guidelines
of the [place] [employer]. [facility] CHEMISTRY BUN 16 7 - 22 01/16/2012 Normal [facility] CHEMISTRY Sodium Lvl 140 135 - 145 01/16/2012 Normal [facility] CHEMISTRY Potassium Lvl 4.9 3.5 - 5.1 01/16/2012 Normal [facility] CHEMISTRY AGAP 13.9 10.0 - 20.0 01/16/2012 Normal [facility] HEMATOLOGY Basophils 0.7 0.0 - 1.0 01/16/2012 Normal [facility] HEMATOLOGY Eosinophils # 0.2 0.0 - 0.5 01/16/2012 Normal [facility] HEMATOLOGY Basophils # 0.0 0.0 - 0.2 01/16/2012 Normal [facility] HEMATOLOGY Lymphocytes # 1.9 1.0 - 5.5 01/16/2012 Normal [facility] HEMATOLOGY Monocytes # 0.6 0.0 - 0.8 01/16/2012 Normal [facility] HEMATOLOGY Segs-Bands # 3.3 1.5 - 8.1 01/16/2012 Normal [facility] HEMATOLOGY Lymphocytes 31.1 20.0 - 40.0 01/16/2012 Normal [facility] HEMATOLOGY Segs 54.6 45.0 - 75.0 01/16/2012 Normal [facility] HEMATOLOGY Monocytes 10.1 2.0 - 12.0 01/16/2012 Normal [facility] HEMATOLOGY Eosinophils 3.5 0.0 - 4.0 01/16/2012 Normal [facility] HEMATOLOGY PTT 33.3 22.9 - 35.8 01/16/2012 Normal <sup>3</sup>Interpretive Data: Heparin Therapeutic Range: 57 - 92 Seconds [facility] HEMATOLOGY PT 13.5 12.0 - 14.7 01/16/2012 Normal [facility] HEMATOLOGY INR 1.03 0.85 - 1.17 01/16/2012 Normal <sup>2</sup>Interpretive Data: RECOMMENDED RANGES FOR PROTIME INR:
2.0-3.0 for most medical and surgical thromboembolic states.
2.5-3.5 for artificial heart valves and recurrent embolism.

INR SHOULD BE USED ONLY FOR PATIENTS ON STABLE ANTICOAGULANT THERAPY. [facility] HEMATOLOGY Platelet 170 133 - 450 01/16/2012 Normal [facility] HEMATOLOGY RDW 13.3 11.5 - 14.5 01/16/2012 Normal [facility] HEMATOLOGY MPV 10.2 7.4 - 10.4 01/16/2012 Normal [facility] HEMATOLOGY MCV 93.2 81.0 - 99.0 01/16/2012 Normal [facility] HEMATOLOGY MCH 31.0 27.0 - 31.0 01/16/2012 Normal [facility] HEMATOLOGY MCHC 33.3 32.0 - 36.0 01/16/2012 Normal [facility] HEMATOLOGY Hct 41.5 36.0 - 48.0 01/16/2012 Normal [facility] HEMATOLOGY RBC 4.45 4.20 - 5.40 01/16/2012 Normal [facility] HEMATOLOGY WBC 6.0 3.7 - 10.4 01/16/2012 Normal [facility] HEMATOLOGY Hgb 13.8 12.0 - 16.0 01/16/2012 Normal [facility] URINALYSIS Micro? Not Indicated *NA* (01/16/2012 11:55:00) 01/16/2012 NA [facility] URINALYSIS UA Glucose Negative mg/dL (01/16/2012 11:55:00) Negative 01/16/2012 Normal [facility] URINALYSIS UA Ketones Negative mg/dL *NA* (01/16/2012 11:55:00) Negative 01/16/2012 NA [facility] URINALYSIS UA Blood Negative (01/16/2012 11:55:00) Negative 01/16/2012 Normal [facility] URINALYSIS UA Protein Negative mg/dL (01/16/2012 11:55:00) Negative 01/16/2012 Normal [facility] URINALYSIS UA Leuk Est Negative (01/16/2012 11:55:00) Negative 01/16/2012 Normal [facility] URINALYSIS UA Nitrite Negative (01/16/2012 11:55:00) Negative 01/16/2012 Normal [facility] URINALYSIS UA Urobilinogen 0.2 0.1 - 1.0 01/16/2012 Normal [facility] URINALYSIS UA Bili Negative *NA* (01/16/2012 11:55:00) Negative 01/16/2012 NA [facility] URINALYSIS UA Turbidity Clear (01/16/2012 11:55:00) Clear 01/16/2012 Normal [facility] URINALYSIS UA pH 6.0 5.0 - 8.0 01/16/2012 Normal [facility] URINALYSIS UA Spec Grav 1.015 <=1.030 01/16/2012 Normal [facility] URINALYSIS UA Color Yellow *NA* (01/16/2012 11:55:00) Yellow 01/16/2012 NA [facility] Pathology Reports No Data Provided for This Section Diagnostic Reports Report Value Date Source Pelvis AP DX Exam: Pelvis AP DX Clinical Indication: - Pelvis pain Comparison: Pelvis radiograph and CT chest, abdomen and pelvis 08/11/2017 FINDINGS: Single AP view of the pelvis submitted. Stimulator battery pack device is present overlying the left upper pelvis. No acute fracture identified. Normal bilateral hip alignment. Mild degenerative changes are present in bilateral hip joints. Degenerative changes are present in bilateral sacroiliac joints and pubic symphysis without significant diastases. Degenerative changes are present in the lower lumbar spine. Soft tissues are unremarkable. No radiopaque foreign body. IMPRESSION: 1. No acute osseous abnormality of the pelvis. 2. Degenerative changes as above. SL: [id number] 08/14/2017 [facility] Chest/Abdomen/Pelvis w IV contrast CT Clinical Indication: Syncope. History of AAA, chronic obstructive pulmonary disease, hypertension, hysterectomy and appendectomy. Comparison: CT chest with contrast dated 07/25/2016. TECHNIQUE: Helical imaging was performed after injection of IV contrast, from the diaphragm through the symphysis with multiplanar reformations obtained. IV CONTRAST: 100 mL of Visipaque 320 GI CONTRAST: Oral contrast was administered. DLP: 1937.74 mGy-cm FINDINGS: Stable partially calcified nodule in the right thyroid lobe. Mildly enlarged thyroid gland. CHEST: LUNG PARENCHYMA AND PLEURA: Previously seen scattered mild groundglass opacities in bilateral lung field and interstitial lobular thickening have improved. There are interval development of airspace opacities in the right middle and right lower lobe. Underlying changes of chronic obstructive pulmonary disease are stable.. Previously seen pleural effusions resolved. There is no pneumothorax. AIRWAY: The central airway is normal. Chest wall: Lateral breast nodularity and bilateral breast calcifications are stable. These should be correlated with breast imaging. MEDIASTINUM: There is no mediastinal lymphadenopathy. There are no mediastinal masses. Small hiatal hernia seen. HEART: There is mild cardiomegaly. Previously seen pericardial effusion has resolved. VASCULAR STRUCTURES: Thoracic ascending aortic aneurysm measuring 5 cm in AP and 5 cm in transverse dimension is stable. There is no evidence for dissection of the thoracic aorta. There is no perianeurysmal inflammation or fluid. Mild calcified atherosclerotic plaques are present in thoracic aorta. The pulmonary arteries and great vessels are unremarkable. The superior vena cava is unremarkable. ABDOMEN AND PELVIS: LIVER: The liver parenchyma is normal in appearance without masses or intrahepatic biliary ductal dilatation. The portal vein is normal in caliber. BILIARY TREE: The common bile duct is normal in caliber without evidence of filling defects. GALLBLADDER: The gallbladder is unremarkable, there is no evidence of cholelithiasis or cholecystitis. PANCREAS: Diffuse attenuation of the pancreas likely due to fatty infiltration. Mild stranding around the head of the pancreas may be due to fatty stranding versus less likely pancreatitis.. The pancreatic duct is normal in caliber. SPLEEN: The spleen is normal in size and there are no parenchymal abnormalities. ADRENALS: The right adrenal gland is unremarkable. The left adrenal gland is unremarkable. KIDNEYS: The kidneys demonstrates normal contrast enhancement. There are no masses. There is no evidence of renal or ureteral calculi. There is no evidence of hydronephrosis. BOWEL: The visualized portion of the esophagus is unremarkable. The stomach is unremarkable. The small bowel is normal in caliber and there is no evidence of masses or obstruction. The colon is normal in caliber, there are no masses, there is no evidence of diverticulosis or diverticulitis. APPENDIX: The appendix is surgically absent. PELVIS: There are no pelvic masses. The urinary bladder is unremarkable. Uterus and ovaries are not visualized. PERITONEUM: There is no evidence for free intraperitoneal fluid or air. SOFT TISSUES: The soft tissues are unremarkable. There is no evidence of masses or hernias. A neurostimulator device is noted in the subcutaneous tissue of the lower back. LYMPH NODES: There is no evidence of mesenteric, retroperitoneal, or inguinal lymphadenopathy. VASCULATURE: The abdominal aorta is normal in caliber. The branches of the abdominal aorta are widely patent. Calcified atherosclerotic plaques are noted in the abdominal aorta and its branches. MUSCULOSKELETAL: The superior arthritic changes with partial subluxation of the right glenohumeral joint. There is a right scoliosis of the thoracolumbar spine with moderate degenerative changes moderate degenerative changes in the left glenohumeral joint in bilateral hip joint seen. IMPRESSION: 1. Interval improvement of pulmonary edema or fluid overload with interval resolution of bilateral pleural effusion and small pericardial effusion. Remain mildly enlarged. 2. Interval development of airspace consolidation in right lower lobe and right middle lobe, likely due to inflammation or infection. 3. Ascending thoracic aortic aneurysm, stable in appearance and size with no evidence for dissection of the thoracic or abdominal aorta. 4. Pancreatic steatosis. A mild inflammatory changes around the head of the pancreas probably due to fatty infiltration of the pancreatic head versus less likely mild pancreatitis. Please correlate with labs SL: [email or web address] 08/11/2017 [facility] Shoulder series DX Exam: Right Shoulder series DX Clinical Indication: History of previous right shoulder injury. Comparison: 07/27/2016. FINDINGS: The AP, lateral and oblique views of the shoulder show normal alignment at the glenohumeral joint. Severe degenerative changes of the glenohumeral joint are seen with unchanged multiple 1 to 1.3 cm calcified joint bodies. Severe subacromial space narrowing is seen, consistent with rotator cuff tear. Severe acromioclavicular degenerative changes are seen. There are no fractures or dislocations. The acromion and coracoid processes appear unremarkable. The visualized scapula and clavicle are unremarkable. Postsurgical changes of the lower cervical spine are seen. Spinal stimulator leads are seen in the mid thoracic region. There are small lung volumes with mild perihilar pulmonary vascular congestion. Right basilar atelectasis/interstitial opacities are seen with small right pleural effusion. If there is further concern, followup radiographs or MRI of the shoulder may be performed for complete assessment. IMPRESSION: 1. No fractures or dislocations of the right shoulder. Unchanged severe degenerative changes of the right shoulder, as noted above. 2. Small lung volumes with mild perihilar pulmonary vascular congestion. Right basilar atelectasis/interstitial opacities with small right pleural effusion. SL: [id number] 08/11/2017 [facility] Pelvis AP DX Clinical Indication: - fall. Comparison: None. FINDINGS: The AP pelvis radiograph shows no fractures or dislocations of the pelvis. The pelvic and obturator rings are intact. The pubic rami are intact. The symphysis pubis and sacroiliac joints are unremarkable. The visualized sacral foramina are unremarkable. Mild degenerative changes are noted at bilateral hip joints. IMPRESSION: No fracture or dislocation SL: [email or web address] 08/11/2017 [facility] Spine lumbar 2 or 3 views DX Patient Name: SELMA EVERETT : 1935; Age: 82 years y/o Female MR: [id number] Study: Spine lumbar 2 or 3 views DX 08/11/2017 7:46 PM [employer] Ordering Physician: Saulo Wild Comparison: None Clinical Indication: - trauma; low back pain PA, lateral and cone lateral views of the lumbar spine were obtained. Postoperative changes at the lower 3 lumbar levels. Generator with spinal stimulation leads entering the lower thoracic spinal canal is noted.Rotatory curvature at the thoracolumbar junction convex to the right. Narrowing of the disc spaces at the lower 3 lumbar intervertebral disc spaces is noted associated with discogenic sclerosis and marginal spurring consistent with degenerative disc disease. Lower lumbar apophyseal joint degenerative arthrosis is noted. Lumbar vertebral body heights and interspaces are otherwise well-maintained. There is no acute fracture, dislocation or spondylolisthesis. Vascular calcification is noted at the distal abdominal aorta. IMPRESSION: No acute abnormality is noted. Degenerative disc disease is noted at L3-L4, L4-L5 and L5-S1. Postoperative laminectomy changes are noted at these levels. DINORA: BRANDYN 08/11/2017 [facility] Chest 1view DX Clinical Indication: Chest pain - syncope; Comparison: 07/25/2016 Technique: X-ray chest frontal projection FINDINGS: There is mild bilateral pulmonary congestion. There is consolidation in the right mid and lower lung field. There is small left pleural effusion. The cardiac silhouette is prominent. Multiple calcified lymph nodes are noted in the right axilla. Degenerative changes are noted in the visualized osseous structures. IMPRESSION: Mild bilateral pulmonary congestion with consolidation in the right mid and lower lung field. Small left pleural effusion. DINORA: MOSES 08/11/2017 [facility] Brain wo contrast CT Clinical Indication: - syncope. Comparison: None. TECHNIQUE: CT images were obtained from the foramen magnum to the vertex without the use of intravenous contrast on a multidetector CT. CT imaging was performed with exposure control parameters to reduce radiation dose. Coronal and sagittal reconstructions were obtained. CT radiation dose DLP: 1295.36 mGy-cm FINDINGS: BRAIN PARENCHYMA: There is generalized brain parenchymal atrophy related to the patient's age. Extensive nonspecific periventricular white matter disease changes. No focal mass lesions on this noncontrast head CT. No mass effect, midline shift or edema. There are no intra-axial or extra-axial fluid collections, intraventricular or intraparenchymal hemorrhage. No low attenuation demarcating areas on this non-contrast CT to suggest subacute stroke. VENTRICLES: The lateral ventricles, third and fourth ventricles appear unremarkable. The basilar cisterns are normal. ORBITS, MASTOIDS AND PARANASAL SINUSES: The visualized orbits are unremarkable. The visualized paranasal sinuses are unremarkable. The mastoid air cells are clear. SKULL: There are no osseous abnormalities. If there is further concern for intracranial pathology or acute stroke, MRI of the brain may be performed for complete assessment. IMPRESSION: No acute infarct, intracranial hemorrhage or mass effect. Extensive microvascular white matter disease. SL: [id number] 08/11/2017 [facility] Shoulder series DX EXAM: XR RIGHT SHOULDER 3 VIEWS DATE: 07/27/2016 at 1939 hours INDICATION: Pain of unknown origin COMPARISON: 07/24/2016 shoulder radiographs TECHNIQUE: AP views in internal and external rotation, and an axillary view of the shoulder FINDINGS: No acute fracture or malalignment is identified. Severe glenohumeral osteoarthrosis is present, with mild anterior subluxation. In addition, there is severe subacromial narrowing, with chronic remodeling. Multiple calcified intra-articular bodies are present. Cervical fusion hardware and spinal stability is a partially visualized. Please refer to the dedicated chest imaging for chest findings. IMPRESSION: 1. Severe glenohumeral osteoarthrosis, with slight anterior subluxation, multiple calcified intra-articular bodies. 2. Subacromial narrowing consistent with a chronic full-thickness rotator cuff tear. 07/27/2016 [facility] Abdomen Soft Tissue US EXAM: US ABDOMEN SOFT TISSUES DATE: 07/26/2016 12:22 AM [employer] INDICATION: Flank Pain ADDITIONAL INFORMATION: Recurrent surgeries on back. Surgical site surrounded by erythema and induration. COMPARISON: None. TECHNIQUE: Multiplanar grayscale and color Doppler ultrasound of the abdominal soft tissues posteriorly.. DISCUSSION: Within the lower back subcutaneous tissues on the left side there is evidence of a hypoechoic region measuring 1.3 x 0.7 x 1.9 cm. There is no significant increase Doppler flow signal surrounding this area. IMPRESSION: 1. Probable lower back left sided subcutaneous abscess. 07/26/2016 [facility] Chest Pulmonary Embolism CTA EXAM: CTA CHEST WITH CONTRAST. Pulmonary Embolus Protocol. DATE: 07/25/2016 5:45 PM [employer] INDICATION: Chest pain. Evaluate for Pulmonary Embolus. COMPARISON: None TECHNIQUE: Volumetric CT acquisition of the chest, during pulmonary arterial phase, after intravenous contrast. Axial, sagittal, coronal, and oblique MIP reconstructions are created at the acquisition workstation. IV Contrast: 70 mL Visipaque 320. DLP: 659 mGy-cm FINDINGS: Lines and Tubes: None. Heart and Great Vessels: The aorta and main pulmonary artery measure 5 and 2.8 cm. respectively. The cardiothoracic radio measures 13/23. Aorta mid arch measures 2.8 cm, distal arch 2.6 cm, proximal descending thoracic aorta 2.6 cm, and distal descending thoracic aorta 2.1 cm. Small pericardial effusion is present with maximal diameter of 6 mm. Moderate coronary artery vascular calcifications present in the left anterior descending. No central pulmonary embolus. Peripheral evaluation limited by respiratory motion artifact. RV/LV ratio over 1 (43/29). There is minimal reflux of contrast into the liver. Lymph Nodes: No suspicious adenopathy. Lungs: Small bilateral pleural effusions. No pneumothorax is identified. Concavity of the posterior wall the trachea suggest expiratory imaging. Scattered opacities in the lung bases are poorly evaluated given motion, but statistically represent atelectasis. Scattered mild groundglass opacities and interstitial lobular thickening are present. Linear opacities in the lingula and right middle lobe suggest volume loss. Upper abdomen: No acute findings. Bones and Soft Tissues: Heterogeneous thyroid with 7 mm nodule on the left. Scattered coarse calcifications throughout both breasts, statistically benign. Thoracic spinal stimulator present. Mild degenerative changes thoracic spine. Clinical humeral joint degenerative changes partially visualized. IMPRESSION: 1. No central pulmonary embolus. Peripheral evaluation limited by respiratory motion artifact. 2. Aneurysm ascending aorta 5 cm. 3. Cardiomegaly with small pleural effusion bilaterally and small pericardial effusion. Scattered mild groundglass opacities and interstitial lobular thickening present consistent with at least mild volume overload. 4. Other scattered areas of predominantly linear consolidation in the mid and lower lungs suggest atelectasis, with superimposed infectious process not excluded. 5. Prominence of the left ventricle suggesting elevated right heart pressures. 6. Heterogeneous thyroid lobe with 7 mm nodule on the left. Findings statistically benign. Thyroid ultrasound could be obtained for further evaluation if indicated. 07/25/2016 [facility] Chest 2 views DX EXAM: XR CHEST 2 VIEWS DATE: 07/25/2016 4:47 PM [employer] INDICATION: Chest pain COMPARISON: Chest radiograph dated 01/16/2012 TECHNIQUE: PA and lateral chest radiographs FINDINGS: Posterior fixation hardware is again identified in the lower cervical spine. There has been interval placement of a intrathecal stimulation device at the level of T6-T8. Small bilateral pleural effusions are present. There is diffuse interstitial prominence, which may be accentuated by low lung volumes. Mild bilateral basilar subsegmental atelectasis is present The heart size appears enlarged, however this is likely secondary to low lung volumes. No acute bony abnormality is identified. Calcified lymph nodes can be seen in the right axilla, unchanged from prior. There are new calcifications also noted in the left breast tissue. Calcifications about the right glenoid humeral joint likely represents secondary synovial osteochondromas. Secondary signs of chronic bilateral rotator cuff tear noted. Osteopenia present. IMPRESSION: Small bilateral pleural effusions. Diffuse interstitial prominence with mild apparent cardiomegaly suggesting mild pulmonary edema/volume Mild bilateral basilar subsegmental atelectasis. New calcifications noted in the left breast tissue. Recommend correlation with mammography. 07/25/2016 [facility] Gallbladder scan HIDA wo meds NM PROCEDURE: Gallbladder scan HIDA wo meds (NM) REASON FOR EXAM: See Clinic Indication CLINICAL INFORMATION abdominal pain COMPARISON: Ultrasound 02/15/2014. Radiopharmaceutical: 6.6 mci of Tc-99m Choletec. Boost 8oz very high calorie given po due to cck shortage FINDINGS: There is prompt uptake of tracer by the liver at 5 minutes. Common duct and gallbladder activity are visualized at 5 minutes. There is normal small bowel activity. The gallbladder ejection fraction measures 48.4%. IMPRESSION: 1. Normal HIDA scan. 2. NOTE: Fatty meal was substituted for Kinevac due to nationwide unavailability of this pharmaceutical. There is limited data in the literature using fatty meal as a substitute for Kinevac with wide variation in the reported ejection fraction. Included below are references for the 2 articles frequently cited. J Nucl Med. 2002; 43:9839-0933 J Nucl Med. 2003; 44:8620-4187 SL: 13 03/31/2014 [facility] Gallbladder US Exam: Gallbladder ultrasound Reason for Exam: Abdominal pain Comparison Exam: None Discussion: Multiple sagittal and axial images were obtained of the gallbladder. No gallstones or gallbladder sludge. No pericholecystic fluid or gallbladder wall thickening. Sonographic Goff's sign is negative. The common bile duct is normal in diameter measuring 0.4 cm. Impression: 1. Unremarkable sonographic appearance of the gallbladder and biliary ductal system. 02/15/2014 [facility] Consultation Notes No Data Provided for This Section Discharge Summaries No Data Provided for This Section History and Physicals No Data Provided for This Section Vital Signs Vital Sign Value Date Comments Source Systolic (mm Hg) 143 08/16/2017 [facility] Diastolic (mm Hg) 91 08/16/2017 [facility] Heart Rate 85 08/16/2017 [facility] Temperature Oral (F) 96.0 F 08/16/2017 [facility] Respitory Rate 16 08/16/2017 [facility] Systolic (mm Hg) 113 08/16/2017 [facility] Diastolic (mm Hg) 72 08/16/2017 [facility] Respitory Rate 18 08/16/2017 [facility] Temperature Oral (F) 98.0 F 08/16/2017 [facility] Heart Rate 70 08/16/2017 [facility] Heart Rate 75 08/16/2017 [facility] Systolic (mm Hg) 127 08/16/2017 [facility] Diastolic (mm Hg) 64 08/16/2017 [facility] Temperature Oral (F) 97.8 F 08/16/2017 [facility] Respitory Rate 16 08/16/2017 [facility] BMI Calculated 27.57 08/12/2017 [facility] Weight 72.864 08/12/2017 [facility] Height 162.56 cm 08/12/2017 [facility] BMI Calculated 25.8 08/12/2017 [facility] Weight 68.182 08/12/2017 [facility] Height 162.56 cm 08/12/2017 [facility] Systolic (mm Hg) 121 07/28/2016 [facility] Diastolic (mm Hg) 70 07/28/2016 [facility] Respitory Rate 22 07/28/2016 [facility] Systolic (mm Hg) 123 07/28/2016 [facility] Diastolic (mm Hg) 71 07/28/2016 [facility] Respitory Rate 24 07/28/2016 [facility] Temperature Oral (F) 97.9 F 07/28/2016 [facility] Respitory Rate 35 07/28/2016 [facility] Systolic (mm Hg) 122 07/28/2016 [facility] Diastolic (mm Hg) 62 07/28/2016 [facility] Temperature Oral (F) 97.3 F 07/28/2016 [facility] Temperature Oral (F) 97.9 F 07/28/2016 [facility] Weight 82.545 07/27/2016 [facility] BMI Calculated 31.24 07/27/2016 [facility] Height 162.56 cm 07/27/2016 [facility] Weight 82.727 07/25/2016 [facility] Heart Rate 59 07/25/2016 [facility] Systolic (mm Hg) 109 07/22/2016 [facility] Diastolic (mm Hg) 55 07/22/2016 [facility] Respitory Rate 16 07/22/2016 [facility] Systolic (mm Hg) 129 07/22/2016 [facility] Diastolic (mm Hg) 61 07/22/2016 [facility] Respitory Rate 16 07/22/2016 [facility] Respitory Rate 12 07/22/2016 [facility] Systolic (mm Hg) 118 07/22/2016 [facility] Diastolic (mm Hg) 59 07/22/2016 [facility] Heart Rate 73 07/17/2016 [facility] BMI Calculated 31.48 07/17/2016 [facility] Height 162.56 cm 07/17/2016 [facility] Weight 83.182 07/17/2016 [facility] Heart Rate 69 01/18/2012 [facility] Respitory Rate 16 01/18/2012 [facility] Diastolic (mm Hg) 60 01/18/2012 [facility] Systolic (mm Hg) 110 01/18/2012 [facility] Heart Rate 70 01/17/2012 [facility] Respitory Rate 20 01/17/2012 [facility] Systolic (mm Hg) 126 01/17/2012 [facility] Diastolic (mm Hg) 64 01/17/2012 [facility] Diastolic (mm Hg) 67 01/17/2012 [facility] Systolic (mm Hg) 130 01/17/2012 [facility] Respitory Rate 18 01/17/2012 [facility] Heart Rate 69 01/17/2012 [facility] Weight 71.364 01/16/2012 [facility] Height 160.02 cm 01/16/2012 [facility] Encounters Location Location Details Encounter Type Encounter Number Reason For Visit Attending Provider ADM Date DC Date Status Source Not Sent [id number] 724.2, 338.29 ROGER LING JR 01/17/2012 01/17/2012 Active [facility] [place] [facility] [id number] Sergey Law 02/15/2014 02/16/2014 [facility] [id number] Sergey Law 03/31/2014 04/01/2014 [facility] Outpatient [id number] ROGER LING JR 09/20/2015 Active [facility] Outpatient [id number] ROGER LING JR 10/11/2015 Active [facility] Outpatient [id number] ROGER LING JR 05/15/2016 [facility] Outpatient [id number] ROGER LING JR 06/19/2016 [facility] Outpatient [id number] ROGER LING JR 07/22/2016 [facility] [id number] Roger Ling Jr 07/22/2016 07/22/2016 [facility] Inpatient [id number] Alton Cameron 07/25/2016 07/28/2016 [facility] Outpatient [id number] MONICA SETHI 08/06/2016 [facility] Inpatient [id number] Leonard Freitas 08/12/2017 08/16/2017 [facility] Procedures Procedure Code Date Perfomer Comments Source Abdominal hysterectomy [id number] [facility] Appendectomy [id number] [facility] Back fusion [id number] [facility] Carpal tunnel release [id number] [facility] Cervical laminectomy [id number] [facility] Right repair of rotator cuff [id number] [facility] Cyst - diagnostic aspiration [id number] [facility] Abdominal hysterectomy [id number] [facility] Appendectomy [id number] [facility] Back fusion [id number] [facility] Carpal tunnel release [id number] [facility] Cervical laminectomy [id number] [facility] Right repair of rotator cuff [id number] [facility] Cyst - diagnostic aspiration [id number] [facility] Assessment and Plan Assessment and Plan Date Source Extracted from:Title: Progress Note *Hospitalist Author: Aydin Sky MD Date: 08/16/17 Impression and Plan ASSESSMENT Acute metabolic encephalopathy due to urinary tract infection Urinary tract infection due to enterococcus Community acquired pneumonia Sepsis, secondary from UTI-resolved Acute respiratory failure with hypoxemia, secondary to above-resolved Acute renal failure, from dehydration and sepsis-resolved Chronic hypothyroidism Essential hypertension Chronic DVT and A. fib on Xarelto therapy Pancreatic steatosis as per CT scan PLAN Continue levofloxacin 750 mg p.o. daily Continue DuoNeb, Symbicort, Singulair Levothyroxine Continue Xarelto Reviewed MAR, continue other medications DVT prophylaxis: Remains on home Xarelto CODE STATUS: Patient is full code Patient is medically stable for discharge Extracted from:Title: History and Physical Author: Leonard Freitas MD Date: 08/12/17 Metabolic encephalopathy Possible sepsisfrom urinary tract infection and pneumonia Right-sided pneumonia Urinary tract infection Acute kidney injury from dehydration Pancreatic steatosis as per CT scan possible mild pancreatitis Hypothyroidism Hypertension History of DVT and A. fibon Xarelto Plan: Patient is a oriented. Answers appropriately some questionsand some not. Patient wants to be DNR but again patient is not orientedI cannot rely completely. Triedto contact family but could not. Continue current care. Patient clinically looksdeterioratingand pale lookingobserved in IMCU for now. Looks septic. Possible sepsis from urinary tract infection pneumoniacontinue Rocephin and Zithromax Continue IV fluids for dehydration Patient denies any abdominal painunlikely pancreatitis right now. Not tender. Hypothyroidism continue Synthroid once medication list reconciled Hypertension continue metoprolol once homemedication list reconciled History of DVT and atrial fibrillationrestart Xareltoif no contraindication. CT head was negative for bleed. On Xarelto at home Inpatient telemetryIMCU for now possible 2-3 midnightdepending on clinical courseand treatment response 08/16/2017 [facility] Extracted from:Title: Medical Student- Progress Note Author: Tee Mejia Date: 07/28/16 Progress Note - Daily [facility] RM: C303 - 00, 3CIM KARLOS SELMA MARVEL 81y (: 1935) F Reason for Admission: CHEST PAIN Working DRG: None Documented Code status: No CPR / DNR - Do Not Call Code Team [Ordered] Isolation: None Documented Allergies: codeine(vomit), Food Strawberries(hives), nonsteroidal anti- inflammatory agents, penicillins(hives), sulfa drugs(skin disorder), NSAIDs(stomach) SUBJECTIVE No acute events overnight. Pt reports chest pain and R shoulder pain has improved. Denies BM since admission, but reports flatus. Denies palpitations, SOB different from baseline, abdominal pain, or dysuria. No complaints otherwise. OBJECTIVE 24hr Labs 07/28 0547 Glucose Lvl 97 BUN 22 Creatinine Lvl 1.27 Sodium Lvl 140 Potassium Lvl 3.4 L Chloride Lvl 103 CO2 26 AGAP 14.4 Calcium Lvl 8.4 L eGFR 39 Magnesium Lvl 2.5 H Phosphorus 3.7 WBC 9.0 RBC 4.03 L Hgb 10.5 L Hct 32.3 L MCV 80.2 MCH 26.2 L MCHC 32.6 RDW 15.9 H Platelet 201 MPV 9.6 Segs 69.2 Monocytes 10.6 Lymphocytes 14.2 L Eosinophils 5.2 H Basophils 0.8 Segs-Bands # 6.2 Lymphocytes # 1.3 Monocytes # 1.0 H Eosinophils # 0.5 Basophils # 0.1 Nieves still necessary (Yes/No): Line still necessary (Yes/No): Vitals Tmp(F) Pulse BP RR SpO2 FIO2 07/28 12:05 97.9 76 ----- 35 90 --- 07/28 11:00 ---- 82 122/62 24 96 --- 07/28 10:00 ---- 98 131/60 21 95 --- 07/28 09:50 ---- --- ----- -- 95 21% 07/28 09:00 ---- 72 ----- 19 --- --- 24 Hr Tmax: 99.0F (37.22c) at 07/27 20:24 Vital Signs are the last 5 in the past 48 hours. Date Wt(kg) Wt(lb) Ht(cm) Ht(in) Method 07/26 82.55 181.60 162.56 64.00 Measured 07/25 (initial) 82.73 182.00 Estimated 07/26 162.56 64.00 Stated I&O Record In Out Bal 07/28 24hr Tot 0 0 0 07/27 24hr Tot 100 0 100 Medications (14) Active Scheduled Meds (8): 07/26/16 (Suspended) amLODIPine 2.5 mg PO Daily 07/26/16 budesonide-formoterol (Symbicort 80/4.5 inhalation aerosol with adapter) 2 inhalation INHALATION RBID 07/28/16 levothyroxine (Levothroid) 50 microgram PO Q630AM 07/26/16 (Suspended) losartan 25 mg PO Daily 07/27/16 metoprolol (metoprolol tartrate) 100 mg PO Q12H 07/26/16 pantoprazole (Protonix) 40 mg PO Before Dinner 07/28/16 rivaroxaban 15 mg PO QPM 07/26/16 simvastatin 10 mg PO Bedtime Unscheduled Meds: None PRN Meds (3): 07/26/16 albuterol-ipratropium (albuterol-ipratropium 2.5-0.5 mg inhalation solution) 3 mL NEB RQ4H 07/25/16 sodium chloride (Saline Flush 0.9%) 10 mL IVP PRN 07/26/16 tramadol 50 mg PO Q6H One Time Meds (3): 07/28/16 (Completed) acetaminophen (Tylenol) 500 mg PO ONCE 07/27/16 (Completed) magnesium sulfate 1 gm IVPB ONCE 100 ml/hr 07/28/16 (Completed) potassium chloride (potassium chloride 20 mEq oral tablet, extended release) 40 mEq PO ONCE Continuous Infusions: None GEN: AAOx4 PULM: symmetric chest expansion. Wheezes bilat. CV: RRR, chest tenderness improved, no murmurs or rubs appreciated ABDOMEN: Tenderness to palpation improved. Soft, nondistended with normoactive BS. PLAN and TREATMENT 81 yo F w/ PMH of A-fib on xarelto, DVT/PE, CVA, AAA s/p repair, HTN, COPD, chronic back pain presents w/ 1 day of intermittent chest pain that radiates to the R shoulder. #Chest pain -Chest and R shoulder pain improved -trop <0.02 -EKG- sinus tachycardia -Chest Xray: Small bilateral pleural effusions. Diffuse interstitial prominence with mild apparent cardiomegaly suggesting mild pulmonary edema/volume. Mild bilateral basilar subsegmental atelectasis. -tramadol 50 mg PRN -Echo- Normal biventricular size and systolic function. LVEF 60-65%. No other significant valvular abnormalities. No pericardial effusion. -R shoulder Xray- Severe glenohumeral osteoarthrosis, with slight anterior subluxation, multiple calcified intra-articular bodies. Subacromial narrowing consistent with a chronic full-thickness rotator cuff tear. #Infection -surgery wound at L hip above buttocks- erythema, swelling, indurated, warmth, tender to palpation -leukocytosis improved. WBC 18.2 --> 16.8 --> 9.0 -US- Probable lower back left sided subcutaneous abscess -Strep, legionella- neg -Neurosurg consulted: No acute neurosurgical intervention required. Imaging likely represents post operative hematoma. Patient can follow up with Dr. Ling as an outpatient as scheduled. -discontinued antibiotics #HTN -BPs elevated -continue metoprolol 100 mg PO BID #A fib -Xarelto 15 mg nightly instead of previous dose of 20 mg nightly -continue metoprolol 100 mg PO BID #HLD -continue home med simvastatin 10 mg PO #COPD -continue home med budesonide-formoterol (Symbicort) #GERD -continue pantoprazole Dispo: discharge today. Follow-up w/ neurosurg on 08/06/16. Tee Mejia, MS3 Extracted from:Title: Team B History and Physical Author: Erika Walker MD Date: 07/26/16 Patient: SELMA EVERETT Age: 81 years Sex: Female : 1935 Associated Diagnoses: None Author: Erika Walker MD Basic Information Source of history: Self. Referral source: Self. History limitation: None. Chief Complaint 07/25/2016 16:04 rt shoulder pain radiates to mid sternal with sob onset last night pain stimulator for back pain hx- copd htn ibs pe afib dvt-on xarelto History of Present Illness Patient is a 81 yo F PMHx of HTN, COPD, CVA (in 2004), Afib, past DVT/PE (on Xarelto), AAA s/p repair, chronic back and leg pain with neurostimulator s/p battery replacement 07/22 who presents to the EC with 1 day history of intermittent midsternal chest pain with radiation to the R. shoulder and arm. She reports that the pain has been occuring intermittently since her surgery but that yesterday she was awoken by the pain. She denies any SOB and pain is reporoducible with palpation of her chest. She reports stopping her Xarelto 5 days prior to surgery and her last dose was yesterday. She denies trauma, OCHOA, SOB, fevers, palpitations, chills, N/V/D/C, abd pain.She has had decreased appetitie since her surgery. In the EC she was found to be tachycardic with HR in 110s, BP 154/72, afebrile. Found to have leukocytosis with WBC 18.2, LA 2.1, Procal 0.14. UA was wnl. CTA chest showed no PE. CXR showed Small bilateral pleural effusions and diffuse interstitial prominence with mild apparent cardiomegaly suggesting mild pulmonary edema/volume. She recieved gentle hydration in the EC and ws started on Vancomycin and Ceftazidime. She denies any fever/chills, some intermittent dry cough. He chest pain has improved since presentation. She lives at [facility] and her PCP is Dr. Nelson Law in [place]. Review of Systems Constitutional: Weakness, Fatigue, No fever, No chills. Ear/Nose/Mouth/Throat: No nasal congestion, No sore throat. Respiratory: Cough, No shortness of breath, No sputum production. Cardiovascular: No palpitations Chest pain: Midsternal. Gastrointestinal: No nausea, No vomiting, No diarrhea, No abdominal pain. Genitourinary: No dysuria, No hematuria. Hematology/Lymphatics: No bleeding tendency. Endocrine: No excessive thirst, No polyuria. Immunologic: No recurrent fevers. Musculoskeletal: Back pain: In the lower region. Integumentary: No rash, No pruritus. Neurologic: Alert and oriented X4. Health Status Allergies: Allergic Reactions (Selected) Severity Not Documented Codeine- Vomit. Food Strawberries- Hives. Nonsteroidal anti-inflammatory agents- No reactions were documented. NSAIDs- Stomach. Penicillins- Hives. Sulfa drugs- Skin disorder. Current medications: (Selected) Inpatient Medications Ordered Protonix: 40 mg, 1 tab, PO, Before Dinner Saline Flush 0.9%: 10 mL, IVP, PRN, PRN: Line Flush Symbicort 80/4.5 inhalation aerosol with adapter: 2 inhalation, INHALATION, RBID Toprol-XL 25 mg oral tablet, extended release: 25 mg, 1 tab, PO, Daily Xarelto: 20 mg, 1 tab, PO, QPM albuterol-ipratropium 2.5-0.5 mg inhalation solution: 3 mL, INHALATION, RQ6H, PRN: Wheezing cefTAZidime: 1 gm, IV, ABXQ8H simvastatin: 10 mg, 1 tab, PO, Bedtime tramadol 50 mg oral tablet: 50 mg, 1 tab, PO, Q6H, PRN: Pain Score 6-10 Suspended amLODIPine: 2.5 mg, PO, Daily losartan: 25 mg, PO, Daily Prescriptions Suspended clindamycin 300 mg oral capsule: 300 mg, 1 cap, PO, Q6H, for 10 day, 40 cap, 0 Refill(s) docusate sodium 100 mg oral capsule: 100 mg, 1 cap, PO, BID, 30 cap, 1 Refill(s) docusate sodium 100 mg oral capsule: 100 mg, 1 cap, PO, BID, 30 cap, 1 Refill(s) tramadol 50 mg oral tablet: 50 mg, 1 tab, PO, Q6H, for 10 day, PRN: Pain, 40 tab, 0 Refill(s) Documented Medications Suspended Nasonex 50 mcg/inh nasal spray: 2 spray, NASAL, Daily, PRN: for allergy symptoms, 17 gm, 0 Refill(s) Patanase 665 mcg/inh nasal spray: 2 spray, NASAL, BID, 30.5 gm, 0 Refill(s) Restasis 0.05% ophthalmic emulsion: 1 drp, BOTH EYES, BID, 30 mL, 0 Refill(s) Symbicort 80/4.5 inhalation aerosol with adapter: 2 puff, INHALATION, BID, 6.9 gm, 0 Refill(s) albuterol-ipratropium 2.5-0.5 mg inhalation solution: 3 mL, INHALATION, Q6H, PRN: Wheezing, 30 ea, 1 Refill(s) amLODIPine 2.5 mg oral tablet: 2.5 mg, 1 tab, PO, Daily, 30 tab, 0 Refill(s) azelastine-fluticasone 137 mcg-50 mcg/inh nasal spray: 2 spray, NASAL, BID, for 30 day, 23 gm, 1 Refill(s) levocetirizine 5 mg oral tablet: 5 mg, 1 tab, PO, Bedtime, for 30 day, PRN: as needed for allergy symptoms, 30 tab, 0 Refill(s) losartan 25 mg oral tablet: 25 mg, 1 tab, PO, Daily, 30 tab, 1 Refill(s) lysine 500 mg oral tablet: 1,000 mg, 2 tab, PO, Daily, 0 Refill(s) metoprolol 25 mg oral tablet, extended release: 25 mg, 1 tab, PO, BID, 90 tab, 1 Refill(s) omeprazole 40 mg oral delayed release capsule: 40 mg, 1 cap, PO, Bedtime, 90 cap, 0 Refill(s) phenazopyridine 200 mg oral tablet: 200 mg, 1 tab, PO, TID, for 2 day, PRN: Dysuria, 6 tab, 0 Refill(s) simvastatin 10 mg oral tablet: 10 mg, 1 tab, PO, Bedtime, 90 tab, 1 Refill(s) temazepam 30 mg oral capsule: 30 mg, 1 cap, PO, Bedtime, for 14 day, PRN: Sleep, 14 cap, 0 Refill(s) tramadol 50 mg oral tablet: 50 mg, 1 tab, PO, Q4H, for 10 day, PRN: Pain, 60 tab, 0 Refill(s) Problem list: All Problems AAA (abdominal aortic aneurysm) / SNOMED CT [id number] / Confirmed A-fib / SNOMED CT 2584844391 / Confirmed Risk for falls / SNOMED CT 2867812135 / Confirmed Back pain / SNOMED CT 015907965 / Confirmed COPD (chronic obstructive pulmonary disease) / SNOMED CT 64995595 / Confirmed Chronic pain / SNOMED CT 813067022 / Confirmed Lumbago / SNOMED CT 139779738 / Confirmed Obesity / SNOMED CT 3945502884 / Confirmed Leg pain / SNOMED CT 874961762 / Confirmed Histories Past Medical History: Active AAA (abdominal aortic aneurysm) (813343111) Back pain (458028698) Leg pain (024809826) Risk for falls (0856842432) A-fib (2975284830) COPD (chronic obstructive pulmonary disease) (46584633) Resolved Carpal tunnel syndrome (1268942700): Resolved. Rotator cuff disorder (3577034381): Resolved. Comments: 07/17/2016 [facility] 14:52 Serina Moore RN right Stroke (303133801): Resolved. Comments: 07/17/2016 [facility] 14:54 Serina Moore RN 2005 minor eye drooping Pneumonia (106069057): Resolved. Comments: 07/17/2016 [facility] 15:10 Serina Moore RN x 7 in 4 yrs Family History: Heart disease Father Cancer Mother Diabetes. Mother Procedure history: Right repair of rotator cuff (926239991). Appendectomy (451184722). Back fusion (777461163). Cervical laminectomy (1957755066). Carpal tunnel release (841339351). Abdominal hysterectomy (035708004). Cyst - diagnostic aspiration (0063398222). Social History Social and Psychosocial Habits Alcohol 07/17/2016 Use: Never Tobacco 07/25/2016 Use: Never smoker Exposure to Tobacco Smoke None Cigarette Smoking Last 365 Days No Reg Smoking Cessation Counseling No . Physical Examination VS/Measurements Vital Signs (last 24 hrs) Last Charted Temp Oral 99.1 DegF (JUL 26:00) Heart Rate Apical 100 bpm (JUL 26:) Resp Rate H 22BRMIN (JUL 26:) SBP H 153mmHg (JUL 26:) DBP 85 mmHg (JUL 26:00) SpO2 96 % (JUL 26:) Weight 82.727 kg (JUL 25 16:04) General: Alert and oriented, No acute distress. Eye: Pupils are equal, round and reactive to light, Extraocular movements are intact, Normal conjunctiva. HENT: Normocephalic, Oral mucosa is moist, No pharyngeal erythema. Neck: Supple, Non-tender. Respiratory: Respirations are non-labored, Breath sounds are equal, mild wheezing in bilateral mid to lower lobes, crackles in mid to lower lobes. . Cardiovascular: Normal rate, Regular rhythm, No edema, R. chest wall and shoulder tender to palpation. . Gastrointestinal: Soft, Non-tender, Non-distended. Genitourinary: No costovertebral angle tenderness. Musculoskeletal R. back surgical site with jono and adjacent 4 cm area of erythema and induration. Tender to palpation, no fluctuance felt. No brusing.. Integumentary: Warm, Dry. Neurologic: Alert, Oriented, No focal deficits, strength 5/5 bilaterally. . Cognition and Speech: Oriented. Psychiatric: Cooperative, Appropriate mood and affect. Review / Management Results review: Labs (Last four charted values) WBC H 16.8 (JUL 26) H 18.2 (JUL 25) Hgb L 10.7 (JUL 26) L 11.8 (JUL 25) Hct L 33.1 (JUL 26) 36.7 (JUL 25) Plt 180 (JUL 26) 181 (JUL 25) Na 137 (JUL 26) 138 (JUL 25) K 3.7 (JUL 26) 3.8 (JUL 25) CO2 L 23 (JUL 26) 24 (JUL 25) Cl 103 (JUL 26) 99 (JUL 25) Cr 0.86 (JUL 26) 0.94 (JUL 25) BUN 9 (JUL 26) 10 (JUL 25) Glucose Random H 108 (JUL 26) H 123 (JUL 25) Mg L 1.7 (JUL 26) Phos 3.0 (JUL 26) Ca L 8.3 (JUL 26) 8.8 (JUL 25) PT H 17.6 (JUL 25) H 17.6 (JUL 25) INR H 1.42 (JUL 25) H 1.42 (JUL 25) PTT H 39.3 (JUL 25) H 38.3 (JUL 25) Troponin 0.02 (JUL 25) <0.02 (JUL 25) . Impression and Plan Ms. Everett is a very pleasant 81yo woman w PMH DVT/PE, AFib (xarelto), prev CVA, AAA s/p repair, chronic back pain (neurostimulator battery replaced 05/22/17), HTN, frequent PNAs, COPD who presents to ED w c/o intermittend CP and R. shoulder pain for 1 day Chest pain - midsternal intermittent chest pain with R. arm and shoulder pain, reproducible with palpation. - ddx: cardiac vs. musculoskeletal vs. pleuritic - EKG, showing regular rhythm, tachycardia, trops negx2 - CTA: prelim read, no PE - follow-up final read. - pain has diminished on its own, continue to monitor Sepsis - px with WBC 18.2, LA 2.1, procalcitonin 0.14, tachycardia up to 110s - ddx: surgical site infection vs. URI/pna (expiratory wheezing on exam) - CXR: small bilateral pleural effusions and diffuse interstitial prominence with mild apparent cardiomegaly suggesting mild pulmonary edema/volume. - UA: wnl - US soft tissue of surgical site pending, if positive for abscess consult general surgery. - rapid strep, infuenza, legionella ordered - Started on Vancomycin and Ceftazidime in EC - recieved IL IVF with improvement of LA from 2.1 to 1.4, continue to trend Afib - patient on Metoprolol 25 mg daily and Xarelto, continue HTN - On Amlodipine 2.5 mg and Losartan 25 mg, holding for now given possible sepsis. AAA - continue to monitor BP - final read of CTa chest pending COPD - patient on symbicort, Nasonex PRN , duonebs at home - restarted Symbicort and duonebs PRN Diet: cardiac diet DVT : on Xarelto 20 mg qPM dispo: pending clinical improvement Addendum by Alton Cameron MD on 07/26/2016 19:59 I have seen and examined the patient with the resident on 07/26/2016, and I agree with his/her assessment and plan with the following addendums if applicable: Cutaneous abscess of back [any part, except buttock] (L02.212) Other chest pain (R07.89) Unspecified atrial fibrillation (I48.91) Chest pain, unspecified (R07.9) Pleural effusion, not elsewhere classified (J90) Alton Cameron MD [facility] [employer] 07/28/2016 [facility] Plan of Care No Data Provided for This Section Social History Social History Date Source Social History TypeResponse Substance Abuse Use: None. Exercise Exercise frequency: 5-6 times/week. Exercise type: Walking. Alcohol Never Smoking Status Never smoker; Exposure to Tobacco Smoke None; Cigarette Smoking Last 365 Days No; Reg Smoking Cessation Counseling No entered on: 08/11/17 07/27/2016 [facility] Social History TypeResponse Substance Abuse Use: None. Exercise Exercise frequency: 5-6 times/week. Exercise type: Walking. Alcohol Never Smoking Status Never smoker; Exposure to Tobacco Smoke None; Cigarette Smoking Last 365 Days No; Reg Smoking Cessation Counseling No 07/27/2016 [facility] Family History No Data Provided for This Section Advance Directives No Data Provided for This Section Functional Status No Data Provided for This Section
--- OUTSIDE RECORDS SUMMARY | 2019-01-12 04:04 | XMS REPORT | Summary of Care ---
Author Author [facility] Organization [facility] Address Unknown Phone Unavailable Encounter ADAM Munoz(UBALDO) [id number] Date(s): 07/22/16 - 07/22/16 [facility] [address] [place] [address]- Discharge Disposition: Home or Self Care Attending Physician: Roger Espinosa MD Referring Physician: Roger Espinosa MD Vital Signs 1 2 3 Most recent to oldest [Reference Range]: 162.56 cm (07/17/16 2:12 PM) Height 109/55 mmHg (07/22/16 12:05 PM) 129/61 mmHg (07/22/16 11:43 AM) 118/59 mmHg (07/22/16 11:30 AM) Blood Pressure [90-140/60-90 mmHg] 16 BRMIN (07/22/16 12:05 PM) 16 BRMIN (07/22/16 11:43 AM) 12 BRMIN *LOW* (07/22/16 11:30 AM) Respiratory Rate [14-20 BRMIN] 73 bpm (07/17/16 2:25 PM) Peripheral Pulse Rate [60-100 bpm] 83.182 kg (07/17/16 2:12 PM) Weight 31.48 m2 (07/17/16 2:12 PM) Body Mass Index Problem List Condition Effective Dates Status Health Status Informant AAA (abdominal Active aortic aneurysm)(Confirmed) Risk for Active falls(Confirmed) Back pain(Confirmed) Active Chronic Active pain(Confirmed) 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 Originally documented as CODEINE. 2Data migrated from [employer] on 09/13/15. Originally documented as CODEINE. 3Data migrated from [employer] on 09/13/15. Originally documented as STRAWBERRIES. 4Data migrated from [employer] on 03/06/15. Originally documented as NSAIDS. 5Data migrated from [employer] on 03/06/15. Originally documented as PENICILLIN. 6Data migrated from [employer] on 03/06/15. Originally documented as SULFA. Medications albuterol 0.5% inhalation solution 2.5 mg, 0.5 mL, Route: NEB, Drug form: SOLN, Q20Min, Dosing Weight 83.182, kg, P RN Wheezing, Priority: STAT, Start date: 07/22/16 7:02:00 SECURITY AUDITOR, Duration: 12 hr, Stop date: 07/22/16 19:01:00 SECURITY AUDITOR Notes: SEE RT DOCUMENTATION MEDICATION WASTE Product Size: 2.5 mgProduc t Wasted: ___ mg Start Date: 07/22/16 Stop Date: 07/22/16 Status: Discontinued albuterol-ipratropium 2.5-0.5 mg inhalation solution 3 mL, INHALATION, Q6H, PRN Wheezing, # 30 ea, 1 Refill(s) Start Date: 07/17/16 Status: Ordered amLODIPine 2.5 mg oral tablet 2.5 mg=1 tab, PO, Daily, # 30 tab, 0 Refill(s) Start Date: 07/17/16 Status: Ordered ANES diphenhydrAMINE 12.5 mg, 0.25 mL, Route: IVP, Drug form: INJ, Q6H, Dosing Weight 83.182, kg, PRN Itching, Start date: 07/22/16 7:02:00 SECURITY AUDITOR, Duration: 12 hr, Stop date: 07/22/16 19:01:00 SECURITY AUDITOR Notes: (Same as: Benadryl) Start Date: 07/22/16 Stop Date: 07/22/16 Status: Discontinued ANES ePHEDrine 5 mg, 0.1 mL, Route: IVP, Drug form: INJ, Q5Min, Dosing Weight 83.182, kg, PRN L ow Blood Pressure, Start date: 07/22/16 7:02:00 SECURITY AUDITOR, Duration: 12 hr, Stop date: 07/22/16 19:01:00 SECURITY AUDITOR Notes: (Same as: ePHEDrine Sulfate) Start Date: 07/22/16 Stop Date: 07/22/16 Status: Discontinued ANES fentaNYL 50 microgram, 1 mL, Route: IVP, Drug form: INJ, Q5Min, Dosing Weight 83.182, kg, PRN Pain Score 7-10, Priority: Routine, Start date: 07/22/16 7:02:00 SECURITY AUDITOR, Durat ion: 2 doses or times, Stop date: 07/22/16 19:00:00 SECURITY AUDITOR Notes: (Same as: Sublimaze) Preservative free. Start Date: 07/22/16 Stop Date: 07/22/16 Status: Discontinued ANES fentaNYL 25 microgram, 0.5 mL, Route: IVP, Drug form: INJ, Q5Min, Dosing Weight 83.182, k g, PRN Pain Score 4-6, Priority: Routine, Start date: 07/22/16 7:02:00 SECURITY AUDITOR, Dura tion: 4 doses or times, Stop date: 07/22/16 19:00:00 SECURITY AUDITOR Notes: (Same as: Sublimaze) Preservative free. Start Date: 07/22/16 Stop Date: 07/22/16 Status: Discontinued ANES flumazenil 0.2 mg, 2 mL, Route: IVP, Drug form: INJ, PRN, Dosing Weight 83.182, kg, PRN Nilson zodiazepine Reversal, Initial dose, Start date: 07/22/16 7:02:00 SECURITY AUDITOR, Duration: 12 hr, Stop date: 07/22/16 19:01:00 SECURITY AUDITOR Notes: (Same as: Romazicon) Start Date: 07/22/16 Stop Date: 07/22/16 Status: Discontinued ANES glycopyrrolate 0.2 mg, 1 mL, Route: IVP, Drug form: INJ, Q5Min, Dosing Weight 83.182, kg, PRN B radycardia, Start date: 07/22/16 7:02:00 SECURITY AUDITOR, Duration: 3 doses or times, Stop d ate: 07/22/16 19:00:00 SECURITY AUDITOR Notes: (Same as: Rubina) Start Date: 07/22/16 Stop Date: 07/22/16 Status: Discontinued ANES hydrALAZINE 10 mg, 0.5 mL, Route: IVP, Drug form: INJ, Q20Min, Dosing Weight 83.182, kg, PRN Elevated BP, Start date: 07/22/16 7:02:00 SECURITY AUDITOR, Duration: 2 doses or times, Stop date: 07/22/16 19:00:00 SECURITY AUDITOR Notes: (Same as: Apresoline)Push over 5 minutes Start Date: 07/22/16 Stop Date: 07/22/16 Status: Discontinued ANES labetalol 10 mg, 2 mL, Route: IVP, Drug form: INJ, Q5Min, Dosing Weight 83.182, kg, PRN El evated BP, Start date: 07/22/16 7:02:00 SECURITY AUDITOR, Duration: 5 doses or times, Stop da te: 07/22/16 19:00:00 SECURITY AUDITOR Notes: (Same as: Normodyne, Trandate)Push over 2 minutes Give bolus over 2-3 mi nutes. Start Date: 07/22/16 Stop Date: 07/22/16 Status: Discontinued ANES meperidine 12.5 mg, 0.5 mL, Route: IVP, Drug form: INJ, Q30Min, Dosing Weight 83.182, kg, P RN Other -See Comment, For shivering, Start date: 07/22/16 7:02:00 SECURITY AUDITOR, Duration : 2 doses or times, Stop date: 07/22/16 19:00:00 SECURITY AUDITOR Notes: (Same as: Demerol) "Use Precaution in Elderly, Seizure disorders, and Re nal impairment" Start Date: 07/22/16 Stop Date: 07/22/16 Status: Discontinued ANES morphine Sulfate 2 mg, 1 mL, Route: IVP, Drug form: INJ, Q5Min, Dosing Weight 83.182, kg, PRN Peter n Score 4-6, Start date: 07/22/16 7:02:00 SECURITY AUDITOR, Duration: 5 doses or times, Stop date: 07/22/16 19:00:00 SECURITY AUDITOR Notes: (Same as:MORPhine Sulfate) Start Date: 07/22/16 Stop Date: 07/22/16 Status: Discontinued ANES naloxone 0.4 mg, 1 mL, Route: IVP, Drug form: INJ, Q2MIN, Dosing Weight 83.182, kg, PRN N arcotic Reversal, Start date: 07/22/16 7:02:00 SECURITY AUDITOR, Duration: 8 doses or times, Stop date: 07/22/16 19:00:00 SECURITY AUDITOR Notes: Same as Narcan Start Date: 07/22/16 Stop Date: 07/22/16 Status: Discontinued ANES ondansetron 4 mg, 2 mL, Route: IVP, Drug form: INJ, ONCE, Dosing Weight 83.182, kg, PRN Naus ea & Vomiting, Start date: 07/22/16 7:02:00 SECURITY AUDITOR Notes: (Same as: Tunde) MEDICATION WASTE Product Size: 4 mgProduct Was ben: ___ mg Start Date: 07/22/16 Stop Date: 07/22/16 Status: Discontinued ANES oxyCODONE 5 mg, 1 tab, Route: PO, Drug form: TAB, Q4H, Dosing Weight 83.182, kg, PRN Pain Score 1-3, Start date: 07/22/16 7:02:00 SECURITY AUDITOR, Duration: 12 hr, Stop date: 7 19:01:00 SECURITY AUDITOR Notes: (Same as: Roxicodone) Start Date: 07/22/16 Stop Date: 07/22/16 Status: Discontinued azelastine-fluticasone 137 mcg-50 mcg/inh nasal spray 2 spray, NASAL, BID, # 23 gm, 1 Refill(s) Start Date: 07/17/16 Stop Date: 08/16/16 Status: Ordered docusate sodium 100 mg oral capsule 100 mg=1 cap, PO, BID, # 30 cap, 1 Refill(s), Pharmacy: [id number] Start Date: 07/22/16 Status: Ordered fentaNYL (ANES) Route: IV, Drug form: INJ, ONCE, Stop date: 07/22/16 10:13:00 SECURITY AUDITOR Start Date: 07/22/16 Stop Date: 07/22/16 Status: Completed Lactated Ringers 1,000 mL 1,000 mL, Rate: 70 ml/hr, Infuse over: 14.3 hr, Route: IV, Dosing Weight 83.182 kg, Total Volume: 1,000, Start date: 07/22/16 6:00:00 SECURITY AUDITOR, Duration: 12 hr, Stop date: 07/22/16 17:59:00 SECURITY AUDITOR Start Date: 07/22/16 Stop Date: 07/22/16 Status: Discontinued levocetirizine 5 mg oral tablet 5 mg=1 tab, PO, Bedtime, PRN as needed for allergy symptoms, # 30 tab, 0 Refill( s) Start Date: 07/17/16 Stop Date: 08/16/16 Status: Ordered lidocaine (ANES) Route: IV, Drug form: INJ, ONCE, Stop date: 07/22/16 10:13:00 SECURITY AUDITOR Start Date: 07/22/16 Stop Date: 07/22/16 Status: Completed losartan 25 mg oral tablet 25 mg=1 tab, PO, Daily, # 30 tab, 1 Refill(s) Start Date: 07/17/16 Status: Ordered LR 1000 mL INJ (ANES) Route: IV, Total Volume: 1,000, Start date: 07/22/16 9:32:00 SECURITY AUDITOR, Stop date: 03/30 10:32:00 SECURITY AUDITOR Start Date: 07/22/16 Stop Date: 07/22/16 Status: Completed lysine 500 mg oral tablet 1,000 mg=2 tab, PO, Daily, 0 Refill(s) Start Date: 07/17/16 Status: Ordered metoprolol 25 mg oral tablet, extended release 25 mg=1 tab, PO, BID, # 90 tab, 1 Refill(s) Start Date: 07/17/16 Status: Ordered Nasonex 50 mcg/inh nasal spray 2 spray, NASAL, Daily, PRN for allergy symptoms, # 17 gm, 0 Refill(s) Start Date: 07/17/16 Status: Ordered omeprazole 40 mg oral delayed release capsule 40 mg=1 cap, PO, Bedtime, # 90 cap, 0 Refill(s) Start Date: 07/17/16 Status: Ordered ondansetron (ANES) Route: IV, Drug form: INJ, ONCE, Stop date: 07/22/16 10:13:00 SECURITY AUDITOR Start Date: 07/22/16 Stop Date: 07/22/16 Status: Completed Patanase 665 mcg/inh nasal spray 2 spray, NASAL, BID, # 30.5 gm, 0 Refill(s) Start Date: 07/17/16 Status: Ordered phenazopyridine 200 mg oral tablet 200 mg=1 tab, PO, TID, PRN Dysuria, # 6 tab, 0 Refill(s) Start Date: 07/17/16 Stop Date: 07/19/16 Status: Ordered propofol (ANES) (ANES) Route: IV, Drug form: INJ, Start date: 07/22/16 9:47:00 SECURITY AUDITOR, Stop date: 07/22/16 10:47:00 SECURITY AUDITOR Start Date: 07/22/16 Stop Date: 07/22/16 Status: Completed Restasis 0.05% ophthalmic emulsion 1 drp, BOTH EYES, BID, # 30 mL, 0 Refill(s) Start Date: 07/17/16 Status: Ordered simvastatin 10 mg oral tablet 10 mg=1 tab, PO, Bedtime, # 90 tab, 1 Refill(s) Start Date: 07/17/16 Status: Ordered Symbicort 80/4.5 inhalation aerosol with adapter 2 puff, INHALATION, BID, # 6.9 gm, 0 Refill(s) Start Date: 07/17/16 Status: Ordered temazepam 30 mg oral capsule 30 mg=1 cap, PO, Bedtime, PRN Sleep, # 14 cap, 0 Refill(s) Start Date: 07/17/16 Stop Date: 07/31/16 Status: Ordered tramadol 50 mg oral tablet 50 mg=1 tab, PO, Q4H, PRN Pain, # 60 tab, 0 Refill(s) Start Date: 07/17/16 Stop Date: 07/27/16 Status: Ordered tramadol 50 mg oral tablet 50 mg=1 tab, PO, Q6H, PRN Pain, X 10 day, # 40 tab, 0 Refill(s) Start Date: 07/22/16 Stop Date: 08/01/16 Status: Ordered vancomycin (ANES) (ANES) Route: IV, Drug form: INJ, Start date: 07/22/16 9:35:00 SECURITY AUDITOR, Stop date: 07/22/16 10:35:00 SECURITY AUDITOR Start Date: 07/22/16 Stop Date: 07/22/16 Status: Completed vancomycin + sodium chloride 0.9% INJ 250 mL 1,000 mg, Route: IVPB, PRE OP, Start date: 07/22/16 6:00:00 SECURITY AUDITOR, Duration: 12 hr , Stop date: 07/22/16 17:59:00 SECURITY AUDITOR Notes: TIME CRITICAL MEDICATION(Same As: Vancocin)Infusion rate< 1000 mg: infuse over 1 [id number] - 1500 mg: infuse over 1.5 [id number] - 2000 mg: infuse over 2 hours> 2001 mg: infuse over 2.5 hours MEDICATION WASTE Product Size: 1000 mgProduct Wasted: ___ mg Start Date: 07/22/16 Stop Date: 07/22/16 Status: Completed Xarelto 20 mg oral tablet 20 mg=1 tab, PO, QPM, # 30 tab, 3 Refill(s) Start Date: 07/17/16 Stop Date: 07/22/16 Status: Discontinued Results BLOOD BANK RESULTS Most recent to 1 oldest [Reference Range]: ABO/Rh A POS *Unknown* (07/17/16 3:08 PM) Antibody Scrn Negative (07/17/16 3:08 PM) ELECTROLYTES Most recent to 1 oldest [Reference Range]: Sodium Lvl [135-145 139 mEq/L mEq/L] (07/17/16 3:08 PM) Potassium Lvl 4.5 mEq/L [3.5-5.1 mEq/L] (07/17/16 3:08 PM) Chloride Lvl [95-109 106 mEq/L mEq/L] (07/17/16 3:08 PM) CO2 [24-32 mEq/L] 27 mEq/L (07/17/16 3:08 PM) AGAP [10.0-20.0 10.5 mEq/L mEq/L] (07/17/16 3:08 PM) CHEM PANEL Most recent to 1 oldest [Reference Range]: Creatinine Lvl 1.01 mg/dL [0.50-1.40 mg/dL] (07/17/16 3:08 PM) eGFR 52 mL/min/1.73m2 1 *NA* (07/17/16 3:08 PM) BUN [7-22 mg/dL] 11 mg/dL (07/17/16 3:08 PM) Glucose Lvl [70-99 88 mg/dL mg/dL] (07/17/16 3:08 PM) Calcium Lvl 9.0 mg/dL [8.5-10.5 mg/dL] (07/17/16 3:08 PM) 1Result Comment: The eGFR is calculated using the [...] from the National Kidney Disease Education Program ( NKDEP) which additionally recommends that when the eGFR is used in patients with extremes of body mass index for purposes of drug dosing, the eGFR should be mul tiplied by the estimated BMI. URINE AND STOOL Most recent to 1 oldest [Reference Range]: UA Turbidity [Clear] Clear (07/17/16 3:08 PM) UA Color [Yellow] Yellow *NA* (07/17/16 3:08 PM) UA pH [5.0-8.0] 6.0 (07/17/16 3:08 PM) UA Spec Grav 1.010 [<=1.030] (07/17/16 3:08 PM) UA Glucose [Negative Negative mg/dL mg/dL] (07/17/16 3:08 PM) UA Blood [Negative] Negative (07/17/16 3:08 PM) UA Ketones [Negative Negative mg/dL mg/dL] *NA* (07/17/16 3:08 PM) UA Protein [Negative Negative mg/dL mg/dL] (07/17/16 3:08 PM) UA Urobilinogen 0.2 EU/dL [0.1-1.0 EU/dL] (07/17/16 3:08 PM) UA Bili [Negative] Negative *NA* (07/17/16 3:08 PM) UA Leuk Est Negative [Negative] (07/17/16 3:08 PM) UA Nitrite Negative [Negative] (07/17/16 3:08 PM) Micro? Not Indicated *NA* (07/17/16 3:08 PM) HEMATOLOGY Most recent to 1 oldest [Reference Range]: WBC [3.7-10.4 K/CMM] 7.3 K/CMM (07/17/16 3:08 PM) RBC [4.20-5.40 4.89 M/CMM M/CMM] (07/17/16 3:08 PM) Hgb [12.0-16.0 g/dL] 12.7 g/dL (07/17/16 3:08 PM) Hct [36.0-48.0 %] 39.6 % (07/17/16 3:08 PM) MCV [80.0-98.0 fL] 81.0 fL (07/17/16 3:08 PM) MCH [27.0-31.0 pg] 25.9 pg *LOW* (07/17/16 3:08 PM) MCHC [32.0-36.0 32.0 g/dL g/dL] (07/17/16 3:08 PM) RDW [11.5-14.5 %] 15.1 % *HI* (07/17/16 3:08 PM) Platelet [133-450 192 K/CMM K/CMM] (07/17/16 3:08 PM) MPV [7.4-10.4 fL] 9.6 fL (07/17/16 3:08 PM) Segs [45.0-75.0 %] 55.3 % (07/17/16 3:08 PM) Lymphocytes 29.3 % [20.0-40.0 %] (07/17/16 3:08 PM) Monocytes [2.0-12.0 10.5 % %] (07/17/16 3:08 PM) Eosinophils [0.0-4.0 3.9 % %] (07/17/16 3:08 PM) Basophils [0.0-1.0 1.0 % %] (07/17/16 3:08 PM) Segs-Bands # 4.0 K/CMM [1.5-8.1 K/CMM] (07/17/16 3:08 PM) Lymphocytes # 2.1 K/CMM [1.0-5.5 K/CMM] (07/17/16 3:08 PM) Monocytes # [0.0-0.8 0.8 K/CMM K/CMM] (07/17/16 3:08 PM) Eosinophils # 0.3 K/CMM [0.0-0.5 K/CMM] (07/17/16 3:08 PM) Basophils # [0.0-0.2 0.1 K/CMM K/CMM] (07/17/16 3:08 PM) PT [12.0-14.7 14.2 seconds seconds] (07/17/16 3:08 PM) INR [0.85-1.17] 1.08 (07/17/16 3:08 PM) PTT [22.9-35.8 33.4 seconds seconds] (07/17/16 3:08 PM) Immunizations No data available for this section Procedures Procedure Date Related Diagnosis Body Site Abdominal hysterectomy Appendectomy Back fusion Carpal tunnel release Cervical laminectomy Cyst - diagnostic aspiration Right repair of rotator cuff Social History Social History Type Response Alcohol Never Smoking Status Never smoker; Exposure to Tobacco Smoke None; Cigarette Smoking Last 365 Days No; Reg Smoking Cessation Counseling No Assessment and Plan No data available for this section
--- OUTSIDE RECORDS SUMMARY | 2019-01-12 04:04 | XMS REPORT | Summary of Care ---
Author Organization Unknown Address Unknown Phone Unavailable Encounter [facility] Bigg_wilfrido(UBALDO) [id number] Date(s): 02/15/14 - 02/15/14 [facility] Outpatient Imaging - [address] [address] [place] Discharge Disposition: Home Physician Attending: Sergey Law MD Reason for Visit 789.0 - ABDOMINAL PAIN Problem List Condition Effective Dates Status Health Status Informant Lumbago(Confirmed) Active Allergies, Adverse Reactions, Alerts Substance Reaction Severity Status codeine vomit Active Food Strawberries hives Active NSAIDs stomach Active penicillins hives Active sulfa drugs skin disorder Active Medications No data available for this section Medications Administered During Your Visit No data available for this section Immunizations No data available for this section
--- OUTSIDE RECORDS SUMMARY | 2019-01-12 04:04 | XMS REPORT | Summary of Care ---
Author Organization Unknown Address Unknown Phone Unavailable Encounter [facility] Encntr_alijohn(UBALDO) [id number] Date(s): 03/31/14 - 03/31/14 [facility] [address] Discharge Disposition: Home Physician Attending: Sergey Law MD Physician_Referring: Sergey Law MD Reason for Visit ABD PAIN Problem List Condition Effective Dates Status [...]
--- OUTSIDE RECORDS SUMMARY | 2019-01-12 04:04 | XMS REPORT | Summary of Care ---
Author Author [facility] Organization [facility] Address Unknown Phone Unavailable Encounter ADAM Munoz(UBALDO) [id number] Date(s): 08/11/17 - 08/16/17 [facility] [address] [place] [address]- Encounter Diagnosis Sepsis, unspecified organism (Final) - 08/21/17 Metabolic encephalopathy (Final) - Acute respiratory failure with hypoxia (Final) - Acute kidney failure, unspecified (Final) - Pneumonia, unspecified organism (Final) - Chronic obstructive pulmonary disease with acute lower respiratory infection (Final) - Urinary tract infection, site not specified (Final) - Dehydration (Final) - Essential (primary) hypertension (Final) - Hypothyroidism, unspecified (Final) - Enterococcus as the cause of diseases classified elsewhere (Final) - Discharge Disposition: Home Care with Home Health Attending Physician: Leonard Freitas MD Admitting Physician: Leonard Freitas MD Vital Signs 1 2 3 Most recent to oldest [Reference Range]: 162.56 cm (08/12/17 6:50 AM) 162.56 cm (08/11/17 7:18 PM) Height 96.0 DegF *LOW* (08/16/17 12:09 PM) 98.0 DegF (08/16/17 6:30 AM) 97.8 DegF (08/16/17 12:08 AM) Temperature Oral [96.4-99.1 DegF] 143/91 mmHg *HI* (08/16/17 12:09 PM) 113/72 mmHg (08/16/17 6:30 AM) 127/64 mmHg (08/16/17 3:25 AM) Blood Pressure [90-140/60-90 mmHg] 16 BRMIN (08/16/17 12:09 PM) 18 BRMIN (08/16/17 6:30 AM) 16 BRMIN (08/16/17 12:08 AM) Respiratory Rate [14-20 BRMIN] 85 bpm (08/16/17 12:09 PM) 70 bpm (08/16/17 6:30 AM) 75 bpm (08/16/17 3:25 AM) Peripheral Pulse Rate [60-100 bpm] 72.864 kg (08/12/17 6:50 AM) 68.182 kg (08/11/17 7:18 PM) Weight 27.57 m2 (08/12/17 6:50 AM) 25.8 m2 (08/11/17 7:18 PM) Body Mass Index Problem List Condition Effective Dates Status Health Status Informant AAA (abdominal Active aortic aneurysm)(Confirmed) A-fib(Confirmed) Active Risk for Active falls(Confirmed) Back pain(Confirmed) Active COPD (chronic Active obstructive pulmonary disease)(Confirmed) Chronic Active pain(Confirmed) IBS (irritable bowel Resolved syndrome)(Confirmed) Stroke(Confirmed)1 Resolved DVT (deep venous Resolved thrombosis)(Confirme d) Rotator cuff Resolved disorder(Confirmed)2 Carpal tunnel Resolved syndrome(Confirmed) HTN Resolved (hypertension)(Confi rmed) Lumbago(Confirmed) Active Obesity(Confirmed) Active Leg pain(Confirmed) Active Pneumonia(Confirmed) Resolved 3 [id number] minor eye drooping 2right 3x 7 in 4 yrs Allergies, Adverse Reactions, Alerts Substance Reaction Severity Status penicillins1 hives Active sulfa drugs2 skin disorder Active codeine3, 4 vomit Active nonsteroidal Active anti-inflammatory agents5 Food Strawberries6 hives Active NSAIDs stomach Active 1Data migrated from [employer] on 03/06/15. Originally documented as PENICILLIN. 2Data migrated from [employer] on 03/06/15. Originally documented as SULFA. 3Data migrated from [employer] on 10/03/15. Originally documented as CODEINE. 4Data migrated from [employer] on 09/13/15. Originally documented as CODEINE. 5Data migrated from [employer] on 03/06/15. Originally documented as NSAIDS. 6Data migrated from [employer] on 09/13/15. Originally documented as STRAWBERRIES. Medications acetaminophen 650 mg, 2 tab, Route: PO, Drug form: TAB, Q4H, Dosing Weight 68.182, kg, PRN Peter n Score 1-3, For fever > 100.4. Not to exceed 4 grams in 24 hours, Start date: 08/12/17 0:51:00 LPN RN HOSPICE, Duration: 30 day, Stop date: 09/11/17 0:50:00 LPN RN HOSPICE Notes: Do not exceed 4 gm/day. (Same as: Tylenol) Start Date: 08/12/17 Stop Date: 08/12/17 Status: Discontinued acetaminophen 650 mg, 2 tab, Route: PO, Drug form: TAB, Q4H, Dosing Weight 68.182, kg, PRN Peter n Score 1-3, For fever > 100.4. Not to exceed 4 grams in 24 hours, Start date: 08/12/17 3:50:00 LPN RN HOSPICE, Duration: 30 day, Stop date: 09/11/17 3:49:00 LPN RN HOSPICE Notes: Do not exceed 4 gm/day. (Same as: Tylenol) Start Date: 08/12/17 Stop Date: 08/16/17 Status: Discontinued albuterol 0.083% inhalation solution 2.49 mg, 3 mL, Route: INHALATION, Drug form: SOLN, PRN, Dosing Weight 68.182, kg , PRN Respiratory Protocol, Start date: 08/12/17 3:50:00 LPN RN HOSPICE, Duration: 30 day, Stop date: 09/11/17 3:49:00 LPN RN HOSPICE Notes: SEE RT DOCUMENTATION (Same as: Proventil) Start Date: 08/12/17 Stop Date: 08/16/17 Status: Discontinued albuterol-ipratropium 2.5-0.5 mg inhalation solution 3 mL, Route: INHALATION, Drug Form: SOLN, Dosing Weight 68.182, kg, PRN, PRN Res piratory Protocol, Start date: 08/12/17 0:51:00 LPN RN HOSPICE, Duration: 30 day, Stop date : 09/11/17 0:50:00 LPN RN HOSPICE Notes: (Same as: Duoneb) Start Date: 08/12/17 Stop Date: 08/12/17 Status: Discontinued amLODIPine 5 mg, PO, Daily, 0 Refill(s) Start Date: 08/12/17 Stop Date: 08/15/17 Status: Discontinued azithromycin 500 mg, Route: IVPB, ONCE, Dosing Weight 68.182, kg, Priority: STAT, Start date: 08/12/17 0:10:00 LPN RN HOSPICE, Stop date: 08/12/17 0:10:00 LPN RN HOSPICE, ABX Indication: Pneumonia Start Date: 08/12/17 Stop Date: 08/12/17 Status: Completed azithromycin + Sodium Chloride 0.9% IV 250 mL 500 mg, Route: IVPB, Drug form: PDR/INJ, [id number], Dosing Weight 68.182, kg, Star t date: 08/13/17 0:00:00 LPN RN HOSPICE, Duration: 30 day, Stop date: 09/11/17 0:00:00 LPN RN HOSPICE, ABX Indication: Pneumonia Notes: (Same As: Zithromax IV) Start Date: 08/13/17 Stop Date: 08/12/17 Status: Canceled budesonide 0.5 mg/2 mL inhalation suspension 0.5 mg, 2 mL, Route: NEB, Drug form: SUSP, RBID, Dosing Weight 72.864, kg, Start date: 08/12/17 9:50:00 LPN RN HOSPICE, Duration: 30 day, Stop date: 09/11/17 8:00:00 LPN RN HOSPICE Notes: (Same As: Pulmicort) Start Date: 08/12/17 Stop Date: 08/16/17 Status: Discontinued cefTRIAXone + sterile water 10 mL 1 gm, Route: IVP, ONCE, Dosing Weight 68.182, kg, Priority: STAT, Start date: 21:21:00 LPN RN HOSPICE, Stop date: 08/11/17 21:21:00 LPN RN HOSPICE, ABX Indication: Urinary T ract Infection Notes: (Same As: Rocephin).Use with 100 mL NS and infuse over 30 min MEDICA TION WASTE Product Size: 1000 mgProduct Wasted0 mg Start Date: 08/11/17 Stop Date: 08/11/17 Status: Completed cycloSPORINE ophthalmic 1 drp, Route: BOTH EYES, Daily, Drug form: DROP, Start date: 08/13/17 9:00:00 CS T, Duration: 30 day, Stop date: 09/11/17 9:00:00 LPN RN HOSPICE Notes: (Same as: Restasis) Start Date: 08/13/17 Stop Date: 08/16/17 Status: Discontinued dextromethorphan-guaiFENesin 10 mg-100 mg/5 mL oral liquid 10 mL, Route: PO, Drug Form: LIQ, Dosing Weight 68.182, kg, Q4H, PRN Cough, Star t date: 08/12/17 0:51:00 LPN RN HOSPICE, Duration: 30 day, Stop date: 09/11/17 0:50:00 LPN RN HOSPICE Notes: (dextromethorphan-guaifenesin 10-100/5 ml LIQ) (Same as: Robitussin-DM) Start Date: 08/12/17 Stop Date: 08/12/17 Status: Discontinued dextromethorphan-guaiFENesin 10 mg-100 mg/5 mL oral liquid 10 mL, Route: PO, Drug Form: LIQ, Dosing Weight 68.182, kg, Q4H, PRN Cough, Star t date: 08/12/17 3:50:00 LPN RN HOSPICE, Duration: 30 day, Stop date: 09/11/17 3:49:00 LPN RN HOSPICE Notes: (dextromethorphan-guaifenesin 10-100/5 ml LIQ) (Same as: Robitussin-DM) Start Date: 08/12/17 Stop Date: 08/16/17 Status: Discontinued Dulcolax Laxative 10 mg, 1 supp, Route: OR, Drug form: SUPP, Daily, Dosing Weight 72.864, kg, PRN Constipation, Start date: 08/16/17 10:01:00 LPN RN HOSPICE, Duration: 30 day, Stop date: 10:00:00 LPN RN HOSPICE Notes: (Same As: Dulcolax, Bisco-Lax) Start Date: 08/16/17 Stop Date: 08/16/17 Status: Discontinued DuoNeb inhalation solution 3 ml, Route: NEB, Drug Form: SOLN, Dosing Weight 72.864, kg, Q4H, Start date: 12:00:00 LPN RN HOSPICE, Duration: 30 day, Stop date: 09/11/17 8:00:00 LPN RN HOSPICE Notes: (Same as: Duoneb) Start Date: 08/12/17 Stop Date: 08/16/17 Status: Discontinued fluticasone nasal 2 spray, Route: Each Affected Nostril, Drug Form: SPRY, Daily, Start date: 08/12 13:00:00 LPN RN HOSPICE, Duration: 30 day, Stop date: 09/11/17 9:00:00 LPN RN HOSPICE Notes: (Same as: Flonase) Start Date: 08/12/17 Stop Date: 08/16/17 Status: Discontinued fosfomycin 3 gm, 1 pkt, Route: PO, Drug form: PDR/REC, ONCE, Dosing Weight 72.864, kg, Star t date: 08/14/17 16:02:00 LPN RN HOSPICE, Stop date: 08/14/17 16:02:00 LPN RN HOSPICE Notes: (Same as: Monural) mix w/ 90 to 120 ml (3 to 4 ounces) of water and stir to dissolve. Do not use hot water. Take immediately after dissolving in water. Start Date: 08/14/17 Stop Date: 08/14/17 Status: Completed hydrALAZINE 10 mg, 0.5 mL, Route: IVP, Drug form: INJ, Q4H, Dosing Weight 68.182, kg, PRN Ot her -See Comment, Start date: 08/12/17 3:54:00 LPN RN HOSPICE, Duration: 30 day, Stop date: 09/11/17 3:53:00 LPN RN HOSPICE Notes: (Same as: Apresoline)Push over 5 minutes Start Date: 08/12/17 Stop Date: 08/16/17 Status: Discontinued levofloxacin 750 mg, 1 tab, Route: PO, Drug form: TAB, [id number], Dosing Weight 72.864, kg, For CrCl > 49ml/min, Start date: 08/15/17 11:00:00 LPN RN HOSPICE, Duration: 7 day, Stop date: 08/21/17 9:00:00 LPN RN HOSPICE, ABX Indication: Urinary Tract Infection Notes: Do not give w/antacids, dairy pdt & mineralsTake 1 hr before or 2 hr after dairy products Start Date: 08/15/17 Stop Date: 08/16/17 Status: Discontinued levofloxacin 750 mg oral tablet 750 mg, PO, [id number], X 10 day, # 10 tab, 0 Refill(s), [facility] [id number] Start Date: 08/15/17 Stop Date: 08/25/17 Status: Completed levothyroxine 50 microgram, 1 tab, Route: PO, Drug form: TAB, [id number], Dosing Weight 72.864, kg , Start date: 08/12/17 11:30:00 LPN RN HOSPICE, Duration: 30 day, Stop date: 09/11/17 6:30: 00 LPN RN HOSPICE Notes: Take 1 hour before or 2 hours after meal; Enteral feeds may interefere wi th the absorption of this medication.(Same as:Levothroid, Synthroid) Start Date: 08/12/17 Stop Date: 08/16/17 Status: Discontinued losartan 25 mg oral tablet 25 mg=1 tab, PO, Daily, 0 Refill(s) Start Date: 08/12/17 Status: Ordered Lovenox 40 mg, 0.4 mL, Route: SUB-Q, Drug form: INJ, [id number], Dosing Weight 72.864, kg, Start date: 08/12/17 10:00:00 LPN RN HOSPICE, Duration: 30 day, Stop date: 09/09/17 13:00: 00 LPN RN HOSPICE Notes: (Same as: Lovenox) Start Date: 08/12/17 Stop Date: 08/12/17 Status: Discontinued Lyrica 25 mg, 1 cap, Route: PO, Drug form: CAP, Daily, Dosing Weight 72.864, kg, Start date: 08/13/17 9:00:00 LPN RN HOSPICE, Duration: 30 day, Stop date: 09/11/17 9:00:00 LPN RN HOSPICE Notes: (Same as: Lyrica) Start Date: 08/13/17 Stop Date: 08/16/17 Status: Discontinued Lyrica 25 mg oral capsule 25 mg=1 cap, PO, Daily, # 30 cap, 0 Refill(s) Start Date: 08/12/17 Status: Ordered metoprolol 25 mg oral tablet, extended release 25 mg=1 tab, PO, TID, 0 Refill(s) Start Date: 08/12/17 Status: Ordered metoprolol 5 mg/5 ml INJ 5 mg, 5 mL, Route: IVP, Drug form: INJ, Q4H, Dosing Weight 68.182, kg, PRN Other -See Comment, Start date: 08/12/17 3:54:00 LPN RN HOSPICE, Duration: 30 day, Stop date: 3:53:00 LPN RN HOSPICE Notes: (Same as: Lopressor)Push over 2 minutes Start Date: 08/12/17 Stop Date: 08/16/17 Status: Discontinued metoprolol tartrate 25 mg, 1 tab, Route: PO, Drug form: TAB, Q6H, Dosing Weight 72.864, kg, Start da te: 08/12/17 12:00:00 LPN RN HOSPICE, Stop date: 08/15/17 11:08:00 LPN RN HOSPICE Notes: (Same as: Lopressor) Start Date: 08/12/17 Stop Date: 08/15/17 Status: Completed metoprolol tartrate 12.5 mg, 0.5 tab, Route: PO, Drug form: TAB, Q12H, Dosing Weight 72.864, kg, Sta rt date: 08/13/17 9:00:00 LPN RN HOSPICE, Duration: 30 day, Stop date: 09/11/17 21:00:00 CS T Notes: (Same as: Lopressor) Start Date: 08/13/17 Stop Date: 08/16/17 Status: Discontinued Nasonex 50 mcg/inh nasal spray 100 microgram, 2 spray, Route: NASAL, Daily, Drug form: SPRY, Start date: 9:00:00 LPN RN HOSPICE, Duration: 30 day, Stop date: 09/11/17 9:00:00 LPN RN HOSPICE Start Date: 08/13/17 Stop Date: 08/12/17 Status: Deleted NS (Bolus) IV 500 mL, 500 ml/hr, Infuse Over: 1 hr, Route: IV, 500, Drug form: INJ, ONCE, Prio rity: STAT, Dosing Weight 68.182 kg, Start date: 08/11/17 23:23:00 LPN RN HOSPICE, Stop cristi e: 08/11/17 23:23:00 LPN RN HOSPICE Start Date: 08/11/17 Stop Date: 08/12/17 Status: Completed NS (Bolus) IV 500 mL, 500 ml/hr, Infuse Over: 1 hr, Route: IV, 500, Drug form: INJ, ONCE, Prio rity: STAT, Dosing Weight 68.182 kg, Start date: 08/11/17 19:45:00 LPN RN HOSPICE, Stop cristi e: 08/11/17 19:45:00 LPN RN HOSPICE Start Date: 08/11/17 Stop Date: 08/11/17 Status: Completed omeprazole 40 mg, Route: PO, Drug form: DRC, Bedtime, Dosing Weight 72.864, kg, Start date: 08/13/17 21:00:00 LPN RN HOSPICE, Duration: 30 day, Stop date: 09/11/17 21:00:00 LPN RN HOSPICE Start Date: 08/13/17 Stop Date: 08/12/17 Status: Deleted ondansetron 4 mg, 2 mL, Route: IVP, Drug form: INJ, Q6H, Dosing Weight 68.182, kg, PRN Nause a & Vomiting, Start date: 08/12/17 0:51:00 LPN RN HOSPICE, Duration: 30 day, Stop date: 09/11/17 0:50:00 LPN RN HOSPICE Notes: (Same as: Tunde) MEDICATION WASTE Product Size: 4 mgProduct Was ben: ___ mg Start Date: 08/12/17 Stop Date: 08/12/17 Status: Discontinued ondansetron 4 mg, 2 mL, Route: IVP, Drug form: INJ, Q6H, Dosing Weight 68.182, kg, PRN Nause a & Vomiting, Start date: 08/12/17 3:50:00 LPN RN HOSPICE, Duration: 30 day, Stop date: 09/11/17 3:49:00 LPN RN HOSPICE Notes: (Same as: Tunde) MEDICATION WASTE Product Size: 4 mgProduct Was ben: ___ mg Start Date: 08/12/17 Stop Date: 08/16/17 Status: Discontinued pneumococcal 13-valent vaccine 0.5 mL, Route: IM, Drug Form: INJ, ONCALL, Start date: 08/12/17 11:00:00 LPN RN HOSPICE, Du ration: 1 doses or times, Stop date: 09/09/17 0:00:00 LPN RN HOSPICE Notes: Shake well prior to use (Same as: Prevnar 13) Start Date: 08/12/17 Stop Date: 08/16/17 Status: Discontinued potassium chloride 40 mEq, 2 tab, Route: PO, Drug form: ERTAB, ONCE, Dosing Weight 72.864, kg, Star t date: 08/16/17 12:13:00 LPN RN HOSPICE, Stop date: 08/16/17 12:13:00 LPN RN HOSPICE Notes: (Same as: K-Dur 20)"Do Not Crush" With food and full glass of water Start Date: 08/16/17 Stop Date: 08/16/17 Status: Completed potassium chloride 40 mEq, 2 pkt, Route: PO, Drug form: PDR/REC, Q1H, Dosing Weight 72.864, kg, Sta rt date: 08/16/17 11:00:00 LPN RN HOSPICE, Duration: 2 doses or times, Stop date: 08/16/17 12:00:00 LPN RN HOSPICE Notes: (Same as: K-Clementine) With food and full glass of water Start Date: 08/16/17 Stop Date: 08/16/17 Status: Completed potassium chloride 20 mEq/15 mL oral liquid 40 mEq, 2 pkt, Route: PO, Drug form: PDR/REC, ONCE, Dosing Weight 72.864, kg, St art date: 08/14/17 10:11:00 LPN RN HOSPICE, Stop date: 08/14/17 10:11:00 LPN RN HOSPICE Notes: (Same as: K-Clementine) With food and full glass of water Start Date: 08/14/17 Stop Date: 08/14/17 Status: Completed potassium chloride 20 mEq/15 mL oral liquid 40 mEq, 2 pkt, Route: PO, Drug form: PDR/REC, PRN, Dosing Weight 72.864, kg, PRN Abnormal Lab Result, Start date: 08/14/17 10:11:00 LPN RN HOSPICE, Duration: 30 day, Stop date: 09/13/17 10:10:00 LPN RN HOSPICE, potassium level < 4.0 Notes: (Same as: K-Clementine) With food and full glass of water Start Date: 08/14/17 Stop Date: 08/16/17 Status: Discontinued Protonix 40 mg, 1 tab, Route: PO, Drug form: ECTAB, Bedtime, Start date: 08/13/17 0:00:00 LPN RN HOSPICE, Duration: 30 day, Stop date: 09/11/17 21:00:00 LPN RN HOSPICE Notes: Tablet should not be chewed or crushed.(Same as: Protonix) Start Date: 08/13/17 Stop Date: 08/16/17 Status: Discontinued rivaroxaban 15 mg, 1 tab, Route: PO, Drug form: TAB, QPM, Dosing Weight 72.864, kg, Start da te: 08/13/17 17:00:00 LPN RN HOSPICE, Duration: 30 day, Stop date: 09/11/17 17:00:00 LPN RN HOSPICE Notes: (Same as: Xarelto)Administer with food Start Date: 08/13/17 Stop Date: 08/16/17 Status: Discontinued Rocephin + sterile water 10 mL 1 gm, Route: IVP, Drug form: PDR/INJ, [id number], Dosing Weight 68.182, kg, Start d ate: 08/12/17 21:00:00 LPN RN HOSPICE, Duration: 10 day, Stop date: 08/21/17 21:00:00 LPN RN HOSPICE, ABX Indication: Pneumonia Notes: (Same As: Rocephin).Use with 100 mL NS and infuse over 30 min MEDICA TION WASTE Product Size: 1000 mgProduct Wasted: ___ mg Start Date: 08/12/17 Stop Date: 08/15/17 Status: Discontinued Rocephin + sterile water 10 mL 1 gm, Route: IVP, Drug form: PDR/INJ, [id number], Dosing Weight 68.182, kg, Start d ate: 08/12/17 21:00:00 LPN RN HOSPICE, Duration: 30 day, Stop date: 09/10/17 21:00:00 LPN RN HOSPICE, ABX Indication: Pneumonia Notes: (Same As: Rocephin).Use with 100 mL NS and infuse over 30 min MEDICA TION WASTE Product Size: 1000 mgProduct Wasted: ___ mg Start Date: 08/12/17 Stop Date: 08/12/17 Status: Canceled Saline Flush 0.9% 10 mL, Route: IVP, Drug Form: INJ, Dosing Weight 68.182, kg, PRN, PRN Line Flush , Start date: 08/11/17 19:31:00 LPN RN HOSPICE, Duration: 30 day, Stop date: 09/10/17 19:30 :00 LPN RN HOSPICE Notes: (Same as: BD Posiflush) Start Date: 08/11/17 Stop Date: 08/12/17 Status: Discontinued Saline Flush 0.9% 10 ml, Route: IVP, Drug Form: INJ, Dosing Weight 68.182, kg, PRN, PRN Line Flush , Start date: 08/12/17 0:51:00 LPN RN HOSPICE, Duration: 30 day, Stop date: 09/11/17 0:50:0 0 LPN RN HOSPICE Notes: (Same as: BD Posiflush) Start Date: 08/12/17 Stop Date: 08/12/17 Status: Discontinued Saline Flush 0.9% 10 ml, Route: IVP, Drug Form: INJ, Dosing Weight 68.182, kg, PRN, PRN Line Flush , Start date: 08/12/17 3:50:00 LPN RN HOSPICE, Duration: 30 day, Stop date: 09/11/17 3:49:0 0 LPN RN HOSPICE Notes: (Same as: BD Posiflush) Start Date: 08/12/17 Stop Date: 08/16/17 Status: Discontinued simvastatin 10 mg, 1 tab, Route: PO, Drug form: TAB, Bedtime, Dosing Weight 72.864, kg, Star t date: 08/13/17 0:00:00 LPN RN HOSPICE, Duration: 30 day, Stop date: 09/11/17 21:00:00 LPN RN HOSPICE Notes: (Same as: Zocor) Start Date: 08/13/17 Stop Date: 08/16/17 Status: Discontinued Singulair 10 mg, 1 tab, Route: PO, Drug form: TAB, Daily, Dosing Weight 72.864, kg, Start date: 08/13/17 9:00:00 LPN RN HOSPICE, Duration: 30 day, Stop date: 09/11/17 9:00:00 LPN RN HOSPICE Notes: (Same as:Singulair) Start Date: 08/13/17 Stop Date: 08/16/17 Status: Discontinued Singulair 10 mg oral tablet 10 mg=1 tab, PO, Daily, 0 Refill(s) Start Date: 08/12/17 Status: Ordered Sodium Chloride 0.9% IV 1,000 mL 1,000 mL, Rate: 75 ml/hr, Infuse over: 13.3 hr, Route: IV, Dosing Weight 68.182 kg, Total Volume: 1,000, Start date: 08/12/17 0:51:00 LPN RN HOSPICE, Duration: 30 day, Sto p date: 09/11/17 0:50:00 LPN RN HOSPICE, 1.77, m2 Start Date: 08/12/17 Stop Date: 08/12/17 Status: Discontinued Sodium Chloride 0.9% IV 1,000 mL 1,000 mL, Rate: 45 ml/hr, Infuse over: 22.2 hr, Route: IV, Dosing Weight 72.864 kg, Total Volume: 1,000, Start date: 08/12/17 3:50:00 LPN RN HOSPICE, Stop date: 09/11/17 3 :49:00 LPN RN HOSPICE, 1.83, m2 Start Date: 08/12/17 Stop Date: 08/13/17 Status: Discontinued tramadol 50 mg oral tablet 50 mg, 1 tab, Route: PO, Drug form: TAB, Q6H, Dosing Weight 72.864, kg, PRN Pain Score 1-3, Priority: NOW, Start date: 08/14/17 2:36:00 LPN RN HOSPICE, Duration: 30 day, S top date: 09/13/17 2:35:00 LPN RN HOSPICE Notes: Not to exceed 400mg/day. (Same As: Ultram) Start Date: 08/14/17 Stop Date: 08/16/17 Status: Discontinued Visipaque 320 mg/mL injectable solution 100 mL, Route: IVP, Drug Form: SOLN, Dosing Weight 68.182, kg, ONCALL, GFR 31 - 45 mL/min, STAT, Start date: 08/11/17 21:20:00 LPN RN HOSPICE, Duration: 1 doses or times Notes: (Same as: Visipaque).WASTE: F/P - Black; E - ozuke Trash Bin Start Date: 08/11/17 Stop Date: 08/11/17 Status: Completed Xarelto 20 mg oral tablet 20 mg=1 tab, PO, QPM, # 30 tab, 3 Refill(s) Start Date: 08/12/17 Stop Date: 08/15/17 Status: Discontinued Zithromax + Sodium Chloride 0.9% IV 250 mL 500 mg, Route: IVPB, Drug form: PDR/INJ, [id number], Dosing Weight 68.182, kg, Star t date: 08/13/17 0:00:00 LPN RN HOSPICE, Duration: 10 day, Stop date: 08/22/17 0:00:00 LPN RN HOSPICE, ABX Indication: Pneumonia Notes: (Same As: Zithromax IV) Start Date: 08/13/17 Stop Date: 08/15/17 Status: Discontinued Zofran ODT 4 mg, Route: PO, Drug form: TABDIS, Q8H, Dosing Weight 72.864, kg, PRN Nausea, P riority: NOW, Start date: 08/16/17 12:53:00 LPN RN HOSPICE, Duration: 30 day, Stop date: 12:52:00 LPN RN HOSPICE Start Date: 08/16/17 Stop Date: 08/16/17 Status: Discontinued Results ELECTROLYTES 1 2 3 Most recent to oldest [Reference Range]: 145 mEq/L (08/14/17 6:02 AM) 144 mEq/L (08/13/17 6:20 AM) 143 mEq/L (08/12/17 8:00 AM) Sodium Lvl [135-145 mEq/L] 3.3 mEq/L *LOW* (08/14/17 6:02 AM) 3.9 mEq/L (08/13/17 6:20 AM) 3.5 mEq/L (08/12/17 8:00 AM) Potassium Lvl [3.5-5.1 mEq/L] 112 mEq/L *HI* (08/14/17 6:02 AM) 112 mEq/L *HI* (08/13/17 6:20 AM) 110 mEq/L *HI* (08/12/17 8:00 AM) Chloride Lvl [95-109 mEq/L] 24 mEq/L (08/14/17 6:02 AM) 24 mEq/L (08/13/17 6:20 AM) 23 mEq/L *LOW* (08/12/17 8:00 AM) CO2 [24-32 mEq/L] 12.3 mEq/L (08/14/17 6:02 AM) 11.9 mEq/L (08/13/17 6:20 AM) 13.5 mEq/L (08/12/17 8:00 AM) AGAP [10.0-20.0 mEq/L] CHEM PANEL 1 2 3 Most recent to oldest [Reference Range]: 0.80 mg/dL (08/14/17 6:02 AM) 0.98 mg/dL (08/13/17 6:20 AM) 1.02 mg/dL (08/12/17 8:00 AM) Creatinine Lvl [0.50-1.40 mg/dL] 69 mL/min/1.73m2 1 *NA* (08/14/17 6:02 AM) 54 mL/min/1.73m2 2 *NA* (08/13/17 6:20 AM) 51 mL/min/1.73m2 3 *NA* (08/12/17 8:33 AM) eGFR 12 mg/dL (08/14/17 6:02 AM) 17 mg/dL (08/13/17 6:20 AM) 17 mg/dL (08/12/17 8:00 AM) BUN [7-22 mg/dL] 13 (08/11/17 8:20 PM) B/C Ratio [6-25] 90 mg/dL (08/14/17 6:02 AM) 87 mg/dL (08/13/17 6:20 AM) 103 mg/dL *HI* (08/12/17 8:00 AM) Glucose Lvl [70-99 mg/dL] 6.0 g/dL *LOW* (08/13/17 6:20 AM) 7.3 g/dL (08/11/17 8:20 PM) Total Protein [6.4-8.4 g/dL] 2.5 g/dL *LOW* (08/13/17 6:20 AM) 3.4 g/dL *LOW* (08/11/17 8:20 PM) Albumin Lvl [3.5-5.0 g/dL] 3.5 g/dL (08/13/17 6:20 AM) 3.9 g/dL (08/11/17 8:20 PM) Globulin [2.7-4.2 g/dL] 0.7 (08/13/17 6:20 AM) 0.9 (08/11/17 8:20 PM) A/G Ratio [0.7-1.6] 8.5 mg/dL (08/14/17 6:02 AM) 8.3 mg/dL *LOW* (08/13/17 6:20 AM) 8.5 mg/dL (08/12/17 8:00 AM) Calcium Lvl [8.5-10.5 mg/dL] 2.1 mg/dL (08/13/17 6:20 AM) 1.8 mg/dL (08/12/17 8:33 AM) 2.1 mg/dL (08/11/17 8:20 PM) Magnesium Lvl [1.8-2.4 mg/dL] 11 unit/L (08/13/17 6:20 AM) 11 unit/L (08/11/17 8:20 PM) ALT [0-65 unit/L] 21 unit/L (08/13/17 6:20 AM) 41 unit/L *HI* (08/11/17 8:20 PM) AST [0-37 unit/L] 54 unit/L (08/13/17 6:20 AM) 63 unit/L (08/11/17 8:20 PM) Alk Phos [39-136 unit/L] 0.4 mg/dL (08/13/17 6:20 AM) 0.8 mg/dL (08/11/17 8:20 PM) Bili Total [0.2-1.3 mg/dL] 0.1 mg/dL (08/13/17 6:20 AM) Bili Direct [0.0-0.3 mg/dL] 0.3 mg/dL (08/13/17 6:20 AM) Bili Indirect [0.0-1.0 mg/dL] 40 unit/L *LOW* (08/11/17 8:20 PM) Lipase Lvl [73-393 unit/L] 1.5 mMol/L (08/13/17 6:20 AM) 0.9 mMol/L (08/12/17 8:33 AM) 0.9 mMol/L (08/12/17 6:59 AM) Lactic Acid Lvl [0.5-2.2 mMol/L] 0.41 ng/mL *HI* (08/12/17 8:00 AM) Procalcitonin Lvl [0.00-0.10 ng/mL] 1Result Comment: The eGFR is calculated using [...] be mul tiplied by the estimated BMI. 2Result Comment: The eGFR is calculated using the [...] be mul tiplied by the estimated BMI. 3Result Comment: The eGFR is calculated using the [...] be mul tiplied by the estimated BMI. CARDIAC ENZYMES 1 2 3 Most recent to oldest [Reference Range]: 570 unit/L *HI* (08/11/17 8:20 PM) Total CK [12-191 unit/L] 1.9 ng/mL (08/11/17 8:20 PM) CK MB [0.5-3.6 ng/mL] 0.3 (08/11/17 8:20 PM) CK MB Index [0.0-2.5] 0.03 ng/mL (08/11/17 8:20 PM) Troponin-I [0.00-0.40 ng/mL] 231 pg/mL *HI* (08/11/17 8:20 PM) BNP [<=100 pg/mL] URINE AND STOOL 1 2 3 Most recent to oldest [Reference Range]: Clear (08/11/17 8:45 PM) UA Turbidity [Clear] Yellow *NA* (08/11/17 8:45 PM) UA Color [Yellow] 5.0 (08/11/17 8:45 PM) UA pH [5.0-8.0] 1.017 (08/11/17 8:45 PM) UA Spec Grav [<=1.030] 50 mg/dL *ABN* (08/11/17 8:45 PM) UA Glucose [Negative mg/dL] Small *ABN* (08/11/17 8:45 PM) UA Blood [Negative] Trace mg/dL *ABN* (08/11/17 8:45 PM) UA Ketones [Negative mg/dL] 30 mg/dL *ABN* (08/11/17 8:45 PM) UA Protein [Negative mg/dL] <=1.0 mg/dL *NA* (08/11/17 8:45 PM) UA Urobilinogen [0.1-1.0 mg/dL] Negative *NA* (08/11/17 8:45 PM) UA Bili [Negative] Small *ABN* (08/11/17 8:45 PM) UA Leuk Est [Negative] Negative (08/11/17 8:45 PM) UA Nitrite [Negative] 9 /HPF *HI* (08/11/17 8:45 PM) UA WBC [0-5 /HPF] 1 /HPF (08/11/17 8:45 PM) UA RBC [0-2 /HPF] Many /HPF *ABN* (08/11/17 8:45 PM) UA Bacteria [None Seen /HPF] None Seen *NA* (08/11/17 8:45 PM) UA Sq Epi 5 /LPF *HI* (08/11/17 8:45 PM) UA Hyal Cast [0-2 /LPF] Moderate /LPF *ABN* (08/11/17 8:45 PM) UA Mucus [None Seen /LPF] HEMATOLOGY 1 2 3 Most recent to oldest [Reference Range]: 9.7 K/CMM (08/14/17 6:02 AM) 10.9 K/CMM *HI* (08/13/17 6:20 AM) 18.6 K/CMM *HI* (08/12/17 8:00 AM) WBC [3.7-10.4 K/CMM] 3.60 M/CMM *LOW* (08/14/17 6:02 AM) 3.70 M/CMM *LOW* (08/13/17 6:20 AM) 4.16 M/CMM *LOW* (08/12/17 8:00 AM) RBC [4.20-5.40 M/CMM] 10.4 g/dL *LOW* (08/14/17 6:02 AM) 10.6 g/dL *LOW* (08/13/17 6:20 AM) 11.9 g/dL *LOW* (08/12/17 8:00 AM) Hgb [12.0-16.0 g/dL] 31.7 % *LOW* (08/14/17 6:02 AM) 32.6 % *LOW* (08/13/17 6:20 AM) 36.5 % (08/12/17 8:00 AM) Hct [36.0-48.0 %] 88.0 fL (08/14/17 6:02 AM) 87.9 fL (08/13/17 6:20 AM) 87.7 fL (08/12/17 8:00 AM) MCV [80.0-98.0 fL] 28.9 pg (08/14/17 6:02 AM) 28.6 pg (08/13/17 6:20 AM) 28.7 pg (08/12/17 8:00 AM) MCH [27.0-31.0 pg] 32.8 g/dL (08/14/17 6:02 AM) 32.5 g/dL (08/13/17 6:20 AM) 32.7 g/dL (08/12/17 8:00 AM) MCHC [32.0-36.0 g/dL] 15.0 % *HI* (08/14/17 6:02 AM) 15.3 % *HI* (08/13/17 6:20 AM) 15.1 % *HI* (08/12/17 8:00 AM) RDW [11.5-14.5 %] 10.3 fL (08/14/17 6:02 AM) 11.0 fL *HI* (08/13/17 6:20 AM) 10.7 fL *HI* (08/12/17 8:00 AM) MPV [7.4-10.4 fL] 145 K/CMM (08/14/17 6:02 AM) 111 K/CMM *LOW* (08/13/17 6:20 AM) 132 K/CMM *LOW* (08/12/17 8:00 AM) Platelet [133-450 K/CMM] 74.4 % (08/14/17 6:02 AM) 80.0 % *HI* (08/12/17 8:00 AM) 80.7 % *HI* (08/11/17 8:20 PM) Segs [45.0-75.0 %] 12.7 % *LOW* (08/14/17 6:02 AM) 10.9 % *LOW* (08/12/17 8:00 AM) 9.7 % *LOW* (08/11/17 8:20 PM) Lymphocytes [20.0-40.0 %] 8.0 % (08/14/17 6:02 AM) 8.8 % (08/12/17 8:00 AM) 9.3 % (08/11/17 8:20 PM) Monocytes [2.0-12.0 %] 4.5 % *HI* (08/14/17 6:02 AM) Eosinophils [0.0-4.0 %] 0.4 % (08/14/17 6:02 AM) 0.3 % (08/12/17 8:00 AM) 0.3 % (08/11/17 8:20 PM) Basophils [0.0-1.0 %] 7.2 K/CMM (08/14/17 6:02 AM) 14.9 K/CMM *HI* (08/12/17 8:00 AM) 18.2 K/CMM *HI* (08/11/17 8:20 PM) Segs-Bands # [1.5-8.1 K/CMM] 1.2 K/CMM (08/14/17 6:02 AM) 2.0 K/CMM (08/12/17 8:00 AM) 2.2 K/CMM (08/11/17 8:20 PM) Lymphocytes # [1.0-5.5 K/CMM] 0.8 K/CMM (08/14/17 6:02 AM) 1.6 K/CMM *HI* (08/12/17 8:00 AM) 2.1 K/CMM *HI* (08/11/17 8:20 PM) Monocytes # [0.0-0.8 K/CMM] 0.4 K/CMM (08/14/17 6:02 AM) Eosinophils # [0.0-0.5 K/CMM] 0.1 K/CMM (08/12/17 8:00 AM) 0.1 K/CMM (08/11/17 8:20 PM) Basophils # [0.0-0.2 K/CMM] 21.4 seconds *HI* (08/11/17 8:20 PM) PT [12.0-14.7 seconds] 1.84 *HI* (08/11/17 8:20 PM) INR [0.85-1.17] 45.1 seconds *HI* (08/11/17 8:20 PM) PTT [22.9-35.8 seconds] MOLECULAR DIAGNOSTIC 1 2 3 Most recent to oldest [Reference Range]: Flocked [employer] WINDER Swab (08/12/17 5:08 PM) Source Respiratory Panel PCR Negative (08/12/17 5:08 PM) Influenza A PCR [Negative] Negative (08/12/17 5:08 PM) Influenza B PCR [Negative] Negative (08/12/17 5:08 PM) RSV PCR [Negative] BACTERIAL - SEROLOGY 1 2 3 Most recent to oldest [Reference Range]: Urine *NA* (08/11/17 8:45 PM) Source Strep Negative (08/11/17 8:45 PM) Strep pneumoniae Ag [Negative] Immunizations Not Given Vaccine Date Status Refusal Reason pneumococcal 13-valent vaccine 07/28/16 Not Given Patient Refuses Procedures Procedure Date Related Diagnosis Body Site Status Abdominal hysterectomy Completed Appendectomy Completed Back fusion Completed Carpal tunnel release Completed Cervical laminectomy Completed Cyst - diagnostic aspiration Completed Right repair of rotator cuff Completed Social History Social History Type Response Substance Abuse Use: None. Exercise Exercise frequency: 5-6 times/week. Exercise type: Walking. Alcohol Never Smoking Status Never smoker; Exposure to Tobacco Smoke None; Cigarette Smoking Last 365 Days No; Reg Smoking Cessation Counseling No entered on: 08/11/17 Assessment and Plan Extracted from: Title: Progress Note *Hospitalist Author: Aydin Sky MD [...] Patient is medically stable for discharge Extracted from: Title: History and Physical Author: Leonard Freitas MD [...]
--- OUTSIDE RECORDS SUMMARY | 2019-01-12 04:04 | XMS REPORT | CCD ---
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 Name Role Phone Roger Dietrich Jr RP Allergies, Adverse Reactions, Alerts Substance Reaction Status codeine vomit Active Food Strawberries hives Active NSAIDs stomach Active penicillins hives Active sulfa drugs skin disorder Active Problem List Condition Effective Dates Status Lumbago Active Medications Medication Instructions Start Date End Date Status lidocaine 0.1 mL, Route: IV, Drug form: INJ, 01/17/2012 01/17/2012 Completed ONCALL, Start date: 01/17/12 6:00:00, Duration: 12 hr, Stop date: 01/17/12 17:59:00 Lactated Ringers 1,000 mL, Rate: 100 ml/hr, Infuse 01/17/2012 01/17/2012 Completed Injection IV 1,000 over: 10 hr, Route: IV, Dosing mL Weight 71.364 kg, Total Volume: 1,000, Start date: 01/17/12 6:00:00, Duration: 12 hr, Stop date: 01/17/12 17:59:00 Demerol HCl 12.5 mg, Route: IVP, ONCE, Start 01/17/2012 01/17/2012 Completed date: 01/17/12 18:02:00, Stop date: 01/17/12 18:02:00 Demerol HCl 12.5 mg, Route: IVP, ONCE, Start 01/17/2012 01/17/2012 Completed date: 01/17/12 18:10:00, Stop date: 01/17/12 18:10:00 fentanyl 50 microgram, Route: IVP, ONCE, 01/17/2012 01/17/2012 Completed Start date: 01/17/12 17:29:00, Stop date: 01/17/12 17:29:00 fentanyl 50 microgram, Route: IVP, ONCE, 01/17/2012 01/17/2012 Completed Start date: 01/17/12 17:28:00, Stop date: 01/17/12 17:28:00 vancomycin 1 gm, 250 mL, Route: IVPB, Drug 01/17/2012 01/17/2012 Completed form: INJ, ONCALL, Start date: 01/17/12 6:00:00, Duration: 1 doses or times Demerol HCl 50 mg, Route: IM, ONCE, Start date: 01/17/2012 01/17/2012 Completed 01/17/12 18:39:00, Stop date: 01/17/12 18:39:00 Vital Signs Most recent to oldest [Reference Range]: 1 2 3 Height 160.02 cm (01/16/2012 12:14:00) Systolic Blood Pressure [90-140 mmHg] 110 mmHg (01/17/2012 19:30:00) 126 mmHg (01/17/2012 18:45:00) 130 mmHg (01/17/2012 18:21:00) Diastolic Blood Pressure [60-90 mmHg] 60 mmHg (01/17/2012 19:30:00) 64 mmHg (01/17/2012 18:45:00) 67 mmHg (01/17/2012 18:21:00) Respiratory Rate [14-20 BRMIN] 16 BRMIN (01/17/2012 19:30:00) 20 BRMIN (01/17/2012 18:45:00) 18 BRMIN (01/17/2012 18:21:00) Peripheral Pulse Rate [60-100 bpm] 69 bpm (01/17/2012 19:30:00) 70 bpm (01/17/2012 18:45:00) 69 bpm (01/17/2012 18:21:00) Weight 71.364 kg (01/16/2012 12:14:00) Results URINALYSIS Most recent to oldest [Reference Range]: 1 UA Turbidity [Clear] Clear (01/16/2012 11:55:00) UA Color [Yellow] Yellow *NA* (01/16/2012 11:55:00) UA pH [5.0-8.0] 6.0 (01/16/2012 11:55:00) UA Spec Grav [<=1.030] 1.015 (01/16/2012 11:55:00) UA Glucose [Negative mg/dL] Negative mg/dL (01/16/2012 11:55:00) UA Blood [Negative] Negative (01/16/2012 11:55:00) UA Ketones [Negative mg/dL] Negative mg/dL *NA* (01/16/2012 11:55:00) UA Protein [Negative mg/dL] Negative mg/dL (01/16/2012 11:55:00) UA Urobilinogen [0.1-1.0 EU/dL] 0.2 EU/dL (01/16/2012 11:55:00) UA Bili [Negative] Negative *NA* (01/16/2012 11:55:00) UA Leuk Est [Negative] Negative (01/16/2012 11:55:00) UA Nitrite [Negative] Negative (01/16/2012 11:55:00) Micro? Not Indicated *NA* (01/16/2012 11:55:00) BLOOD BANK RESULTS Most recent to oldest [Reference Range]: 1 ABO/Rh A POS *Unknown* (01/16/2012 11:55:00) Antibody Scrn Negative (01/16/2012 11:55:00) CHEMISTRY Most recent to oldest [Reference Range]: 1 Sodium Lvl [135-145 mEq/L] 140 mEq/L (01/16/2012 11:55:00) Potassium Lvl [3.5-5.1 mEq/L] 4.9 mEq/L (01/16/2012 11:55:00) Chloride Lvl [95-109 mEq/L] 104 mEq/L (01/16/2012 11:55:00) CO2 [24-32 mEq/L] 27 mEq/L (01/16/2012 11:55:00) AGAP [10.0-20.0 mEq/L] 13.9 mEq/L (01/16/2012 11:55:00) Creatinine Lvl [0.5-1.4 mg/dL] 1.2 mg/dL (01/16/2012 11:55:00) BUN [7-22 mg/dL] 16 mg/dL (01/16/2012 11:55:00) Glucose Lvl [70-99 mg/dL] 80 mg/dL 1 (01/16/2012 11:55:00) Calcium Lvl [8.5-10.5 mg/dL] 9.4 mg/dL (01/16/2012 11:55:00) 1Interpretive Data: Adult reference range values reflect the clinical guidelines of the [place] [employer]. HEMATOLOGY Most recent to oldest [Reference Range]: 1 WBC [3.7-10.4 K/CMM] 6.0 K/CMM (01/16/2012 11:55:00) RBC [4.20-5.40 M/CMM] 4.45 M/CMM (01/16/2012 11:55:00) Hgb [12.0-16.0 g/dL] 13.8 g/dL (01/16/2012 11:55:00) Hct [36.0-48.0 %] 41.5 % (01/16/2012:55:00) MCV [81.0-99.0 fL] 93.2 fL (01/16/2012 11:55:00) MCH [27.0-31.0 pg] 31.0 pg (01/16/2012 11:55:00) MCHC [32.0-36.0 g/dL] 33.3 g/dL (01/16/2012 11:55:00) RDW [11.5-14.5 %] 13.3 % (01/16/2012 11:55:00) Platelet [133-450 K/CMM] 170 K/CMM (01/16/2012 11:55:00) MPV [7.4-10.4 fL] 10.2 fL (01/16/2012 11:55:00) Segs [45.0-75.0 %] 54.6 % (01/16/2012 11:55:00) Lymphocytes [20.0-40.0 %] 31.1 % (01/16/2012 11:55:00) Monocytes [2.0-12.0 %] 10.1 % (01/16/2012 11:55:00) Eosinophils [0.0-4.0 %] 3.5 % (01/16/2012 11:55:00) Basophils [0.0-1.0 %] 0.7 % (01/16/2012 11:55:00) Segs-Bands # [1.5-8.1 K/CMM] 3.3 K/CMM (01/16/2012 11:55:00) Lymphocytes # [1.0-5.5 K/CMM] 1.9 K/CMM (01/16/2012 11:55:00) Monocytes # [0.0-0.8 K/CMM] 0.6 K/CMM (01/16/2012 11:55:00) Eosinophils # [0.0-0.5 K/CMM] 0.2 K/CMM (01/16/2012 11:55:00) Basophils # [0.0-0.2 K/CMM] 0.0 K/CMM (01/16/2012 11:55:00) PT [12.0-14.7 seconds] 13.5 seconds (01/16/2012 11:55:00) INR [0.85-1.17] 1.03 2 (01/16/2012 11:55:00) PTT [22.9-35.8 seconds] 33.3 seconds 3 (01/16/2012 11:55:00) 2Interpretive Data: RECOMMENDED RANGES FOR PROTIME INR: 2.0-3.0 for most medical and surgical thromboembolic states. 2.5-3.5 for artificial heart valves and recurrent embolism. INR SHOULD BE USED ONLY FOR PATIENTS ON STABLE ANTICOAGULANT THERAPY. 3Interpretive Data: Heparin Therapeutic Range: 57 - 92 Seconds
--- OUTSIDE RECORDS SUMMARY | 2019-01-12 04:05 | XMS REPORT ---
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 Allergies, Adverse Reactions, Alerts Allergy Name Allergy Type Status Severity Reaction(s) Onset Date Inactive Date Treating Clinician Comments strawberry DA Active [place] 2017-10-30 00:00:00 NSAIDS (Non-Steroidal Anti-Inflamma DA Active [place] 2014-08-21 00:00:00 Penicillins DA Active [place] 2014-08-21 00:00:00 Sulfa (Sulfonamide Antibiotics) DA Active [place] 2014-08-21 00:00:00 codeine DA Active [place] 2014-08-21 00:00:00 nitrofurantoin DA Active [place] 2014-08-21 00:00:00 ciprofloxacin DA Active [place] 2014-08-21 00:00:00 Medications This patient has no known medications.
--- OUTSIDE RECORDS SUMMARY | 2019-01-12 04:05 | XMS REPORT | Summary of Care ---
Author Author [facility] Organization [facility] Address Unknown Phone Unavailable Encounter ADAM Munoz(UBALDO) [id number] Date(s): 07/25/16 - 07/28/16 [facility] [address] [employer] provided by [employer] [facility] [place] [address]- Discharge Disposition: Home or Self Care Attending Physician: Alton Cameron MD Admitting Physician: Alton Cameron MD Vital Signs 1 2 3 Most recent to oldest [Reference Range]: 162.56 cm (07/26/16 10:00 PM) Height 97.9 DegF (07/28/16 12:05 PM) 97.3 DegF (07/28/16 8:16 AM) 97.9 DegF (07/28/16 5:09 AM) Temperature Oral [96.4-99.1 DegF] 121/70 mmHg (07/28/16 2:00 PM) 123/71 mmHg (07/28/16 1:00 PM) 122/62 mmHg (07/28/16 11:00 AM) Blood Pressure [90-140/60-90 mmHg] 22 BRMIN *HI* (07/28/16 2:00 PM) 24 BRMIN *HI* (07/28/16 1:00 PM) 35 BRMIN *HI* (07/28/16 12:05 PM) Respiratory Rate [14-20 BRMIN] 59 bpm *LOW* (07/25/16 4:04 PM) Peripheral Pulse Rate [60-100 bpm] 82.545 kg (07/26/16 10:00 PM) 82.727 kg (07/25/16 4:04 PM) Weight 31.24 m2 (07/26/16 10:00 PM) Body Mass Index Problem List Condition [...] Active Leg pain(Confirmed) Active Pneumonia(Confirmed) Resolved 3 [id number] minor eye drooping 2right 3x 7 in [...] 03/06/15. Originally documented as SULFA. Medications albuterol 0.083% inhalation solution 2.5 mg=3 mL, INHALATION, TID, PRN prn Start Date: 07/26/16 Status: Ordered albuterol-ipratropium 2.5-0.5 mg inhalation solution 3 mL, Route: INHALATION, Drug Form: SOLN, Dosing Weight 82.727, kg, RQ6H, PRN Wh eezing, Start date: 07/25/16 22:46:00 RECORDER OF DEEDS, Duration: 30 day, Stop date: 08/24/16 22:45:00 RECORDER OF DEEDS Notes: (Same as: Maeve) Start Date: 07/25/16 Stop Date: 07/28/16 Status: Discontinued albuterol-ipratropium 2.5-0.5 mg inhalation solution 3 mL, Route: NEB, Drug Form: SOLN, Dosing Weight 82.727, kg, RQ4H, PRN Respirato ry Protocol, Start date: 07/26/16 4:04:00 RECORDER OF DEEDS, Stop date: 08/25/16 3:00:00 RECORDER OF DEEDS Notes: (Same as: Maeve) Start Date: 07/26/16 Stop Date: 07/28/16 Status: Discontinued amLODIPine 2.5 mg, Route: PO, Drug form: TAB, Daily, Dosing Weight 82.727, kg, Start date: 07/26/16 9:00:00 RECORDER OF DEEDS, Duration: 30 day, Stop date: 08/24/16 9:00:00 RECORDER OF DEEDS Start Date: 07/26/16 Stop Date: 07/28/16 Status: Discontinued amLODIPine 2.5 mg, 1 tab, Route: PO, Drug form: TAB, ONCE, Dosing Weight 82.727, kg, Start date: 07/25/16 21:18:00 RECORDER OF DEEDS, Stop date: 07/25/16 21:18:00 RECORDER OF DEEDS Notes: (Same as: Channing) Start Date: 07/25/16 Stop Date: 07/26/16 Status: Completed Benadryl 25 mg, 0.5 mL, Route: IVP, Drug form: INJ, ONCE, Dosing Weight 82.727, kg, Prior ity: STAT, Start date: 07/25/16 21:17:00 RECORDER OF DEEDS, Stop date: 07/25/16 21:17:00 RECORDER OF DEEDS Notes: (Same as: Benadryl) Start Date: 07/25/16 Stop Date: 07/26/16 Status: Completed cefTAZidime 1 gm, Route: IV, Drug form: PDR/INJ, ABXQ8H, Dosing Weight 82.727, kg, Start cristi e: 07/25/16 22:00:00 RECORDER OF DEEDS, Duration: 30 day, Stop date: 08/24/16 14:00:00 RECORDER OF DEEDS Notes: (Same as: Mary Lou) MEDICATION WASTE Product Size: 1000 mgProduct Wasted: ___ mg Start Date: 07/25/16 Stop Date: 07/26/16 Status: Discontinued Lasix 40 mg oral tablet 40 mg, 1 tab, Route: PO, Drug form: TAB, Daily, Dosing Weight 82.727, kg, Priori ty: NOW, Start date: 07/26/16 14:52:00 RECORDER OF DEEDS, Duration: 30 day, Stop date: 7 9:00:00 RECORDER OF DEEDS Notes: (Same as: Lasix) Start Date: 07/26/16 Stop Date: 07/28/16 Status: Discontinued levocetirizine 5 mg oral tablet 5 mg=1 tab, PO, QAM Start Date: 07/26/16 Status: Ordered Levothroid 50 microgram, 1 tab, Route: PO, Drug form: TAB, [id number], Start date: 07/28/16 6:3 0:00 RECORDER OF DEEDS, Duration: 30 day, Stop date: 08/26/16 6:30:00 RECORDER OF DEEDS Notes: Take 1 hour before or 2 hours after meal; Enteral feeds may interefere wi th the absorption of this medication.(Same as:Levothroid, Synthroid) Start Date: 07/28/16 Stop Date: 07/28/16 Status: Discontinued levothyroxine 50 mcg (0.05 mg) oral tablet 50 microgram=1 tab, PO, Daily Start Date: 07/26/16 Status: Ordered losartan 25 mg, Route: PO, Drug form: TAB, Daily, Dosing Weight 82.727, kg, Start date: 0 07/26/16 9:00:00 RECORDER OF DEEDS, Duration: 30 day, Stop date: 08/24/16 9:00:00 RECORDER OF DEEDS Start Date: 07/26/16 Stop Date: 07/28/16 Status: Discontinued lysine 500 mg oral tablet 1,000 mg=2 tab, PO, Daily Start Date: 07/26/16 Status: Ordered magnesium sulfate 1 gm, 100 mL, Route: IVPB, Drug form: INJ, ONCE, Dosing Weight 82.545, kg, Start date: 07/27/16 8:19:00 RECORDER OF DEEDS, Stop date: 07/27/16 8:19:00 RECORDER OF DEEDS Notes: WASTE: F/P - Sink; E - Municipal Trash Bin Start Date: 07/27/16 Stop Date: 07/27/16 Status: Completed metoprolol 5 mg/5 ml INJ 5 mg, Route: IV, ONCE, Dosing Weight 82.727, kg, Start date: 07/26/16 8:53:00 CS T, Stop date: 07/26/16 8:53:00 RECORDER OF DEEDS Start Date: 07/26/16 Stop Date: 07/26/16 Status: Completed metoprolol 5 mg/5 ml INJ 5 mg, Route: IV, ONCE, Dosing Weight 82.727, kg, Start date: 07/26/16 8:21:00 CS T, Stop date: 07/26/16 8:21:00 RECORDER OF DEEDS Start Date: 07/26/16 Stop Date: 07/26/16 Status: Completed metoprolol tartrate 50 mg, 1 tab, Route: PO, Drug form: TAB, Q8H, Dosing Weight 82.727, kg, Start da te: 07/26/16 16:00:00 RECORDER OF DEEDS, Duration: 30 day, Stop date: 08/25/16 8:00:00 RECORDER OF DEEDS Notes: (Same as: Lopressor) Start Date: 07/26/16 Stop Date: 07/27/16 Status: Discontinued metoprolol tartrate 25 mg, Route: PO, Drug form: TAB, ONCE, Dosing Weight 82.727, kg, Priority: STAT , Start date: 07/25/16 20:05:00 RECORDER OF DEEDS, Stop date: 07/25/16 20:05:00 RECORDER OF DEEDS Start Date: 07/25/16 Stop Date: 07/25/16 Status: Completed metoprolol tartrate 25 mg, Route: PO, Drug form: TAB, ONCE, Dosing Weight 82.727, kg, Start date: 8:53:00 RECORDER OF DEEDS, Stop date: 07/26/16 8:53:00 RECORDER OF DEEDS Start Date: 07/26/16 Stop Date: 07/26/16 Status: Discontinued metoprolol tartrate 100 mg, 2 tab, Route: PO, Drug form: TAB, Q12H, Dosing Weight 82.727, kg, Start date: 07/27/16 21:00:00 RECORDER OF DEEDS, Duration: 30 day, Stop date: 08/26/16 9:00:00 RECORDER OF DEEDS Notes: (Same as: Lopressor) Start Date: 07/27/16 Stop Date: 07/28/16 Status: Discontinued metoprolol tartrate 25 mg oral tablet 25 mg=1 tab, PO, BID Start Date: 07/26/16 Stop Date: 07/28/16 Status: Discontinued metoprolol tartrate 50 mg oral tablet 100 mg=2 tab, PO, Q12H, # 120 tab, 2 Refill(s) Start Date: 07/28/16 Status: Ordered morphine Sulfate 2 mg, Route: IVP, ONCE, Dosing Weight 82.727, kg, Priority: STAT, Start date: 17:44:00 RECORDER OF DEEDS, Stop date: 07/25/16 17:44:00 RECORDER OF DEEDS Start Date: 07/25/16 Stop Date: 07/25/16 Status: Completed Nasonex 50 mcg/inh nasal spray 2 spray, NASAL, Daily, 0 Refill(s) Start Date: 07/26/16 Status: Ordered NS (Bolus) IV 1,000 mL, 1,000 ml/hr, Infuse Over: 1 hr, Route: IV, ONCE, Priority: STAT, Dosin g Weight 82.727 kg, Start date: 07/25/16 20:26:00 RECORDER OF DEEDS, Duration: 1 doses or time s, Stop date: 07/25/16 20:26:00 RECORDER OF DEEDS Start Date: 07/25/16 Stop Date: 07/25/16 Status: Completed omeprazole 40 mg, Route: PO, Drug form: DRC, Bedtime, Dosing Weight 82.727, kg, Start date: 07/26/16 21:00:00 RECORDER OF DEEDS, Duration: 30 day, Stop date: 08/24/16 21:00:00 RECORDER OF DEEDS Start Date: 07/26/16 Stop Date: 07/26/16 Status: Deleted phenazopyridine 200 mg oral tablet 200 mg=1 tab, PO, Q6H Start Date: 07/26/16 Status: Ordered pneumococcal 13-valent vaccine 0.5 mL, Route: IM, Drug Form: INJ, Daily, Start date: 07/27/16 9:00:00 RECORDER OF DEEDS, Dura tion: 1 doses or times, Stop date: 07/27/16 9:00:00 RECORDER OF DEEDS Notes: Lightly roll vial (DO NOT SHAKE) before administration. (Same as: Prevna r 13) Start Date: 07/27/16 Stop Date: 07/27/16 Status: Completed potassium chloride 20 mEq oral tablet, extended release 40 mEq, 2 tab, Route: PO, Drug form: ERTAB, ONCE, Dosing Weight 82.545, kg, Star t date: 07/28/16 9:17:00 RECORDER OF DEEDS, Stop date: 07/28/16 9:17:00 RECORDER OF DEEDS Notes: (Same as: K-Dur 20)"Do Not Crush" With food and full glass of water Start Date: 07/28/16 Stop Date: 07/28/16 Status: Completed Protonix 40 mg, 1 tab, Route: PO, Drug form: ECTAB, Before Dinner, Start date: 07/26/16 1 6:30:00 RECORDER OF DEEDS, Duration: 30 day, Stop date: 08/24/16 16:30:00 RECORDER OF DEEDS Notes: Tablet should not be chewed or crushed.(Same as: Protonix) Start Date: 07/26/16 Stop Date: 07/28/16 Status: Discontinued Restasis 0.05% ophthalmic emulsion 2 drp, BOTH EYES, Daily Start Date: 07/26/16 Status: Ordered rivaroxaban 15 mg, 1 tab, Route: PO, Drug form: TAB, QPM, Start date: 07/28/16 17:00:00 RECORDER OF DEEDS, Duration: 30 day, Stop date: 08/26/16 17:00:00 RECORDER OF DEEDS Notes: (Same as: Xarelto)Administer with food Start Date: 07/28/16 Stop Date: 07/28/16 Status: Canceled rivaroxaban 15 mg oral tablet 15 mg=1 tab, PO, QPM, # 30 tab, 0 Refill(s) Start Date: 07/28/16 Status: Ordered Saline Flush 0.9% 10 mL, Route: IVP, Drug Form: INJ, Dosing Weight 82.727, kg, PRN, PRN Line Flush , Start date: 07/25/16 20:05:00 RECORDER OF DEEDS, Duration: 30 day, Stop date: 08/24/16 20:04 :00 RECORDER OF DEEDS Notes: (Same as: BD Posiflush) Start Date: 07/25/16 Stop Date: 07/28/16 Status: Discontinued simvastatin 10 mg, 1 tab, Route: PO, Drug form: TAB, Bedtime, Dosing Weight 82.727, kg, Star t date: 07/26/16 21:00:00 RECORDER OF DEEDS, Duration: 30 day, Stop date: 08/24/16 21:00:00 CS T Notes: (Same as: Zocor) Start Date: 07/26/16 Stop Date: 07/28/16 Status: Discontinued Sodium Chloride 0.9% IV 1000 mL 1,000 mL, Rate: 100 ml/hr, Infuse over: 10 hr, Route: IV, Dosing Weight 82.727 k g, Total Volume: 1,000, Start date: 07/26/16 1:01:00 RECORDER OF DEEDS, Duration: 30 day, Stop date: 08/25/16 1:00:00 RECORDER OF DEEDS Start Date: 07/26/16 Stop Date: 07/26/16 Status: Discontinued Symbicort 80/4.5 inhalation aerosol with adapter 2 inhalation, Route: INHALATION, Drug Form: AERO/A, Dosing Weight 82.727, kg, RB ID, Start date: 07/26/16 8:00:00 RECORDER OF DEEDS, Duration: 30 day, Stop date: 08/24/16 20:0 0:00 RECORDER OF DEEDS Notes: (Same as: Symbicort)WASTE: Aerosol - Return to Pharmacy Start Date: 07/26/16 Stop Date: 07/28/16 Status: Discontinued Symbicort 80/4.5 inhalation aerosol with adapter 1 puff, INHALATION, BID Start Date: 07/26/16 Status: Ordered Toprol-XL 25 mg oral tablet, extended release 25 mg, 1 tab, Route: PO, Drug form: ERTAB, Daily, Start date: 07/26/16 9:00:[address], Duration: 30 day, Stop date: 08/24/16 9:00:00 RECORDER OF DEEDS Notes: (Same as: Toprol XL) Do Not Crush Start Date: 07/26/16 Stop Date: 07/26/16 Status: Discontinued tramadol 50 mg, 1 tab, Route: PO, Drug form: TAB, Q6H, Dosing Weight 82.727, kg, PRN Pain Score 6-10, Start date: 07/26/16 6:53:00 RECORDER OF DEEDS, Duration: 30 day, Stop date: 08/14 08/30 6:52:00 RECORDER OF DEEDS Notes: Not to exceed 400mg/day. (Same As: Ultram) Start Date: 07/26/16 Stop Date: 07/28/16 Status: Discontinued tramadol 50 mg oral tablet 50 mg=1 tab, PO, Q6H, PRN Pain, X 10 day, # 40 tab, 0 Refill(s) Start Date: 07/28/16 Stop Date: 08/07/16 Status: Ordered tramadol 50 mg oral tablet 50 mg, 1 tab, Route: PO, Drug form: TAB, Q6H, Dosing Weight 82.727, kg, PRN Pain Score 6-10, Start date: 07/25/16 22:50:00 RECORDER OF DEEDS, Duration: 30 day, Stop date: 05/30 22:49:00 RECORDER OF DEEDS Notes: Not to exceed 400mg/day. (Same As: Ultram) Start Date: 07/25/16 Stop Date: 07/27/16 Status: Discontinued Tylenol 500 mg, 1 tab, Route: PO, Drug form: TAB, ONCE, Dosing Weight 82.545, kg, Start date: 07/28/16 11:35:00 RECORDER OF DEEDS, Stop date: 07/28/16 11:35:00 RECORDER OF DEEDS Notes: Max acetaminophen 4000 mg/day (4 gm/day). (Same as: Tylenol Extra Streng th) Start Date: 07/28/16 Stop Date: 07/28/16 Status: Completed vancomycin 1.25 gm, 250 mL, Route: IV, Drug form: INJ, ONCE, Dosing Weight 82.727, kg, Prio rity: NOW, Start date: 07/26/16 10:38:00 RECORDER OF DEEDS, Stop date: 07/26/16 10:38:00 RECORDER OF DEEDS Notes: TIME CRITICAL MEDICATIONSame as: Vancocin-NS (premixed)Infusion rate< 1000 mg: infuse over 1 [id number] - 1500 mg: infuse over 1.5 [id number] - 2000 mg: infuse over 2 hours> 2001 mg: infuse over 2.5 hours Start Date: 07/26/16 Stop Date: 07/26/16 Status: Completed vancomycin + sodium chloride 0.9% 500 ml INJ 500 mL 2 gm, Route: IV, ONCE, Dosing Weight 82.727, kg, Start date: 07/25/16 21:16:[address], Stop date: 07/25/16 21:16:00 RECORDER OF DEEDS Notes: TIME CRITICAL MEDICATION(Same As: Vancocin)Infusion rate< 1000 mg: infuse over 1 [id number] - 1500 mg: infuse over 1.5 hoursVancomycin FOR IV SET [id number] - 2000 mg: infuse over 2 hours> 2001 mg: infuse over 2.5 hours MEDICATION WASTE Product Size: 1000 mgProduct Wasted: ___ mg Start Date: 07/25/16 Stop Date: 07/26/16 Status: Completed vancomycin + sodium chloride 0.9% INJ 250 mL 1.5 gm, Route: IV, [id number], Dosing Weight 82.545, kg, Priority: NOW, Start date: 07/27/16 8:18:00 RECORDER OF DEEDS, Duration: 30 day, Stop date: 08/25/16 8:18:00 RECORDER OF DEEDS Notes: TIME CRITICAL MEDICATION(Same As: Vancocin)Infusion rate< 1000 mg: infuse over 1 [id number] - 1500 mg: infuse over 1.5 hoursVancomycin FOR IV SET [id number] - 2000 mg: infuse over 2 hours> 2001 mg: infuse over 2.5 hours MEDICATION WASTE Product Size: 1000 mgProduct Wasted: ___ mg Start Date: 07/27/16 Stop Date: 07/27/16 Status: Discontinued Visipaque 320mg/ml 70 mL, Route: IVP, Drug Form: SOLN, Dosing Weight 82.727, kg, ONCALL, STAT, Star t date: 07/25/16 18:33:00 RECORDER OF DEEDS, Duration: 1 doses or times, Dose=2.2ml/kg, Max d [id number] -- "To be infused by Radiology Staff ONLY" Start Date: 07/25/16 Stop Date: 07/25/16 Status: Completed Xarelto 20 mg, Route: PO, QPM, Dosing Weight 82.545, kg, Start date: 07/28/16 17:00:[address], Duration: 30 day, Stop date: 08/26/16 17:00:00 RECORDER OF DEEDS Start Date: 07/28/16 Stop Date: 07/28/16 Status: Deleted Xarelto 20 mg, 1 tab, Route: PO, Drug form: TAB, QPM, Dosing Weight 82.727, kg, Start da te: 07/26/16 17:00:00 RECORDER OF DEEDS, Duration: 30 day, Stop date: 08/24/16 17:00:00 RECORDER OF DEEDS Notes: (Same as: Xarelto)Administer with food Start Date: 07/26/16 Stop Date: 07/26/16 Status: Canceled Xarelto 20 mg oral tablet 20 mg=1 tab, PO, QPM, # 30 tab, 3 Refill(s) Start Date: 07/26/16 Stop Date: 07/28/16 Status: Discontinued Results ELECTROLYTES 1 2 3 Most recent to oldest [Reference Range]: 140 mEq/L (07/28/16 5:47 AM) 137 mEq/L (07/26/16 3:19 AM) 138 mEq/L (07/25/16 5:00 PM) Sodium Lvl [135-145 mEq/L] 3.4 mEq/L *LOW* (07/28/16 5:47 AM) 3.7 mEq/L (07/26/16 3:19 AM) 3.8 mEq/L (07/25/16 5:00 PM) Potassium Lvl [3.5-5.1 mEq/L] 103 mEq/L (07/28/16 5:47 AM) 103 mEq/L (07/26/16 3:19 AM) 99 mEq/L (07/25/16 5:00 PM) Chloride Lvl [95-109 mEq/L] 26 mEq/L (07/28/16 5:47 AM) 23 mEq/L *LOW* (07/26/16 3:19 AM) 24 mEq/L (07/25/16 5:00 PM) CO2 [24-32 mEq/L] 14.4 mEq/L (07/28/16 5:47 AM) 14.7 mEq/L (07/26/16 3:19 AM) 18.8 mEq/L (07/25/16 5:00 PM) AGAP [10.0-20.0 mEq/L] CHEM PANEL 1 2 3 Most recent to oldest [Reference Range]: 1.27 mg/dL (07/28/16 5:47 AM) 0.86 mg/dL (07/26/16 3:19 AM) 0.94 mg/dL (07/25/16 5:00 PM) Creatinine Lvl [0.50-1.40 mg/dL] 39 mL/min/1.73m2 1 *NA* (07/28/16 5:47 AM) 63 mL/min/1.73m2 2 *NA* (07/26/16 3:19 AM) 57 mL/min/1.73m2 3 *NA* (07/25/16 5:00 PM) eGFR 22 mg/dL (07/28/16 5:47 AM) 9 mg/dL (07/26/16 3:19 AM) 10 mg/dL (07/25/16 5:00 PM) BUN [7-22 mg/dL] 10 (07/26/16 3:19 AM) B/C Ratio [6-25] 97 mg/dL (07/28/16 5:47 AM) 108 mg/dL *HI* (07/26/16 3:19 AM) 123 mg/dL *HI* (07/25/16 5:00 PM) Glucose Lvl [70-99 mg/dL] 6.7 g/dL (07/26/16 3:19 AM) Total Protein [6.4-8.4 g/dL] 3.0 g/dL *LOW* (07/26/16 3:19 AM) Albumin Lvl [3.5-5.0 g/dL] 3.7 g/dL (07/26/16 3:19 AM) Globulin [2.7-4.2 g/dL] 0.8 (07/26/16 3:19 AM) A/G Ratio [0.7-1.6] 8.4 mg/dL *LOW* (07/28/16 5:47 AM) 8.3 mg/dL *LOW* (07/26/16 3:19 AM) 8.8 mg/dL (07/25/16 5:00 PM) Calcium Lvl [8.5-10.5 mg/dL] 3.7 mg/dL (07/28/16 5:47 AM) 3.0 mg/dL (07/26/16 3:19 AM) Phosphorus [2.5-4.5 mg/dL] 2.5 mg/dL *HI* (07/28/16 5:47 AM) 1.7 mg/dL *LOW* (07/26/16 3:19 AM) Magnesium Lvl [1.8-2.4 mg/dL] 13 unit/L (07/26/16 3:19 AM) ALT [0-65 unit/L] 17 unit/L (07/26/16 3:19 AM) AST [0-37 unit/L] 86 unit/L (07/26/16 3:19 AM) Alk Phos [39-136 unit/L] 1.1 mg/dL (07/26/16 3:19 AM) Bili Total [0.2-1.3 mg/dL] 1.4 mMol/L (07/26/16 3:19 AM) 2.3 mMol/L *HI* (07/25/16 11:22 PM) 2.1 mMol/L (07/25/16 8:19 PM) Lactic Acid Lvl [0.5-2.2 mMol/L] 0.14 ng/mL *HI* (07/25/16 8:19 PM) Procalcitonin Lvl [0.00-0.10 ng/mL] 1Result Comment: The [...] 3 Most recent to oldest [Reference Range]: 0.02 ng/mL (07/25/16 8:19 PM) <0.02 ng/mL (07/25/16 5:00 PM) Troponin-I [0.00-0.40 ng/mL] URINE AND STOOL 1 2 3 Most recent to oldest [Reference Range]: Slight Cloudy (07/25/16 10:52 PM) UA Turbidity [Clear] Yellow *NA* (07/25/16 10:52 PM) UA Color [Yellow] 5.5 (07/25/16 10:52 PM) UA pH [5.0-8.0] 1.015 (07/25/16 10:52 PM) UA Spec Grav [<=1.030] Negative (07/25/16 10:52 PM) UA Glucose [Negative] Moderate *ABN* (07/25/16 10:52 PM) UA Blood [Negative] 15 mg/dL *ABN* (07/25/16 10:52 PM) UA Ketones [Negative mg/dL] 30 mg/dL *ABN* (07/25/16 10:52 PM) UA Protein [Negative mg/dL] 1.0 EU/dL (07/25/16 10:52 PM) UA Urobilinogen [0.1-1.0 EU/dL] Negative *NA* (07/25/16 10:52 PM) UA Bili [Negative] Negative (07/25/16 10:52 PM) UA Leuk Est [Negative] Negative (07/25/16 10:52 PM) UA Nitrite [Negative] 3-5 /HPF (07/25/16 10:52 PM) UA WBC [None Seen /HPF] 0-2 /HPF (07/25/16 10:52 PM) UA RBC [0-2 /HPF] Few /HPF (07/25/16 10:52 PM) UA Bacteria [None Seen /HPF] Few /LPF (07/25/16 10:52 PM) UA Sq Epi [Few /LPF] HEMATOLOGY 1 2 3 Most recent to oldest [Reference Range]: 9.0 K/CMM (07/28/16 5:47 AM) 16.8 K/CMM *HI* (07/26/16 3:19 AM) 18.2 K/CMM *HI* (07/25/16 5:00 PM) WBC [3.7-10.4 K/CMM] 4.03 M/CMM *LOW* (07/28/16 5:47 AM) 4.12 M/CMM *LOW* (07/26/16 3:19 AM) 4.58 M/CMM (07/25/16 5:00 PM) RBC [4.20-5.40 M/CMM] 10.5 g/dL *LOW* (07/28/16 5:47 AM) 10.7 g/dL *LOW* (07/26/16 3:19 AM) 11.8 g/dL *LOW* (07/25/16 5:00 PM) Hgb [12.0-16.0 g/dL] 32.3 % *LOW* (07/28/16 5:47 AM) 33.1 % *LOW* (07/26/16 3:19 AM) 36.7 % (07/25/16 5:00 PM) Hct [36.0-48.0 %] 80.2 fL (07/28/16 5:47 AM) 80.4 fL (07/26/16 3:19 AM) 80.1 fL (07/25/16 5:00 PM) MCV [80.0-98.0 fL] 26.2 pg *LOW* (07/28/16 5:47 AM) 26.0 pg *LOW* (07/26/16 3:19 AM) 25.8 pg *LOW* (07/25/16 5:00 PM) MCH [27.0-31.0 pg] 32.6 g/dL (07/28/16 5:47 AM) 32.3 g/dL (07/26/16 3:19 AM) 32.1 g/dL (07/25/16 5:00 PM) MCHC [32.0-36.0 g/dL] 15.9 % *HI* (07/28/16 5:47 AM) 15.3 % *HI* (07/26/16 3:19 AM) 15.6 % *HI* (07/25/16 5:00 PM) RDW [11.5-14.5 %] 201 K/CMM (07/28/16 5:47 AM) 180 K/CMM (07/26/16 3:19 AM) 181 K/CMM (07/25/16 5:00 PM) Platelet [133-450 K/CMM] 9.6 fL (07/28/16 5:47 AM) 9.1 fL (07/26/16 3:19 AM) 9.7 fL (07/25/16 5:00 PM) MPV [7.4-10.4 fL] 69.2 % (07/28/16 5:47 AM) 76.8 % *HI* (07/26/16 3:19 AM) 84.0 % *HI* (07/25/16 5:00 PM) Segs [45.0-75.0 %] 14.2 % *LOW* (07/28/16 5:47 AM) 10.5 % *LOW* (07/26/16 3:19 AM) 5.6 % *LOW* (07/25/16 5:00 PM) Lymphocytes [20.0-40.0 %] 10.6 % (07/28/16 5:47 AM) 12.1 % *HI* (07/26/16 3:19 AM) 9.9 % (07/25/16 5:00 PM) Monocytes [2.0-12.0 %] 5.2 % *HI* (07/28/16 5:47 AM) 0.1 % (07/26/16 3:19 AM) Eosinophils [0.0-4.0 %] 0.8 % (07/28/16 5:47 AM) 0.5 % (07/26/16 3:19 AM) 0.5 % (07/25/16 5:00 PM) Basophils [0.0-1.0 %] 6.2 K/CMM (07/28/16 5:47 AM) 12.9 K/CMM *HI* (07/26/16 3:19 AM) 15.3 K/CMM *HI* (07/25/16 5:00 PM) Segs-Bands # [1.5-8.1 K/CMM] 1.3 K/CMM (07/28/16 5:47 AM) 1.8 K/CMM (07/26/16 3:19 AM) 1.0 K/CMM (07/25/16 5:00 PM) Lymphocytes # [1.0-5.5 K/CMM] 1.0 K/CMM *HI* (07/28/16 5:47 AM) 2.0 K/CMM *HI* (07/26/16 3:19 AM) 1.8 K/CMM *HI* (07/25/16 5:00 PM) Monocytes # [0.0-0.8 K/CMM] 0.5 K/CMM (07/28/16 5:47 AM) Eosinophils # [0.0-0.5 K/CMM] 0.1 K/CMM (07/28/16 5:47 AM) 0.1 K/CMM (07/26/16 3:19 AM) 0.1 K/CMM (07/25/16 5:00 PM) Basophils # [0.0-0.2 K/CMM] 17.6 seconds *HI* (07/25/16 8:19 PM) 17.6 seconds *HI* (07/25/16 5:00 PM) PT [12.0-14.7 seconds] 1.42 *HI* (07/25/16 8:19 PM) 1.42 *HI* (07/25/16 5:00 PM) INR [0.85-1.17] 39.3 seconds *HI* (07/25/16 8:19 PM) 38.3 seconds *HI* (07/25/16 5:00 PM) PTT [22.9-35.8 seconds] RAPID 1 2 3 Most recent to oldest [Reference Range]: Negative (07/26/16 3:35 AM) Grp A Strep Scr [Negative] Immunizations Not Given Vaccine Date Status Refusal Reason pneumococcal 13-valent vaccine 07/28/16 Not Given Patient Refuses Procedures Procedure Date Related Diagnosis Body Site Abdominal hysterectomy Appendectomy Back fusion Carpal tunnel release Cervical laminectomy Cyst - diagnostic aspiration Right repair of rotator cuff Social History Social History Type Response Substance Abuse Use: None. Exercise Exercise frequency: 5-6 times/week. Exercise type: Walking. Alcohol Never Smoking Status Never smoker; Exposure to Tobacco Smoke None; Cigarette Smoking Last 365 Days No; Reg Smoking Cessation Counseling No Assessment and Plan Extracted from: Title: Medical Student- Progress Author: Tee Mejia Date: 07/28/16 Note Progress Note - Daily [facility] RM: C303 - 00, [id number] (: 1935) F Reason for Admission: CHEST [...] otherwise. OBJECTIVE 24hr Labs 07/28 0547 Glucose Lvl97 BUN22 Creatinine Lvl1.27 Sodium Ahn061 Potassium Lvl3.4 L Chloride Kdv251 CO226 AGAP14.4 Calcium Lvl8.4 L eGFR39 Magnesium Lvl2.5 H Phosphorus3.7 WBC9.0 RBC4.03 L Hgb10.5 L Hct32.3 L MCV80.2 MCH26.2 L MCHC32.6 RDW15.9 H Inbxnncn730 MPV9.6 Segs69.2 Syitkelrd03.6 Karqrtnyjrf97.2 L Eosinophils5.2 H Basophils0.8 Segs-Bands #6.2 Lymphocytes #1.3 Monocytes #1.0 H Eosinophils #0.5 Basophils #0.1 Nieves still necessary (Yes/No): Line still necessary (Yes/No): VitalsTmp(F)[id number] 07/28 12:0597.976-----3590--- 07/28 11:00----64795/567421--- 07/28 10:00----25023/599270--- 07/28 09:50 95 21% 07/28 09:00----72-----19------ 24 Hr Tmax: 99.0F (37.22c) at 07/27 20:24Vital Signs are the last 5 in the past 48 hours. DateWt(kg)Wt(lb)Ht(cm)Ht(in)Method 07/26 82.55 181.91921.56 64.00Measured 07/25 (initial) 82.73 182.00Estimated 01771.56 64.00Stated I&ORecordInOutBal 07/1523hr Tot 0 0 0 07/1423hr Tot 100 0 100 Medications (14) Active [...] improved. Soft, nondistended with normoactive BS. PLAN & TREATMENT 81 yo F w/ PMH of [...] hematoma. Patient can follow up with Dr. Dietrich as an outpatient as scheduled. -discontinued antibiotics #HTN -BPs elevated -continue metoprolol 100 mg PO BID #A fib -Xarelto 15 mg nightly instead of previous dose of 20 mg nightly -continue metoprolol 100 mg PO BID #HLD -continue home med simvastatin 10 mg PO #COPD -continue home med budesonide-formoterol (Symbicort) #GERD -continue pantoprazole Dispo: discharge today. Follow-up w/ neurosurg on 08/06/16. Stevenemilio Mejia, MS3 Extracted from: Title: Team B History and Physical Author: Erika [...] has improved since presentation. [facility] her PCP is Dr. Nelson Law in [place]. Review of Systems Constitutional: Weakness, Fatigue, No [...] AAA (abdominal aortic aneurysm) / SNOMED CT 934670572 / Confirmed A-fib / SNOMED CT 2513224021 / Confirmed Risk for falls / SNOMED CT 9442904252 / Confirmed Back pain / SNOMED CT 461390771 / Confirmed COPD (chronic obstructive pulmonary disease) / SNOMED CT 65066702 / Confirmed Chronic pain / SNOMED CT 765038211 / Confirmed Lumbago / SNOMED CT 258212212 / Confirmed Obesity / SNOMED CT 1221514652 / Confirmed Leg pain / SNOMED CT 166408872 / Confirmed Histories Past Medical History: Active AAA (abdominal aortic aneurysm) (392929053) Back pain (686046804) Leg pain (081902774) Risk for falls (3017370856) A-fib (9600349323) COPD (chronic obstructive pulmonary disease) (12058550) Resolved Carpal tunnel syndrome (3892210301): Resolved. Rotator cuff disorder (2436769653): Resolved. Comments: 07/17/2016 RECORDER OF DEEDS 14:52 Serina Moore RN right Stroke (862810033): Resolved. Comments: 07/17/2016 RECORDER OF DEEDS 14:54 Serina Moore RN 2005 minor eye drooping Pneumonia (752911230): Resolved. Comments: 07/17/2016 RECORDER OF DEEDS 15:10 Serina Moore RN x 7 in 4 yrs Family History: Heart disease Father Cancer Mother Diabetes. Mother Procedure history: Right repair of rotator cuff ([id number]). Appendectomy (715219307). Back fusion ([id number]). Cervical laminectomy (9269622743). Carpal tunnel release ([id number]). Abdominal hysterectomy (801507231). Cyst - diagnostic aspiration (4432152420). Social History Social & Psychosocial Habits Alcohol 07/17/2016 Use: Never Tobacco 07/25/2016 Use: Never smoker Exposure to Tobacco Smoke None Cigarette Smoking Last 365 Days No Reg Smoking Cessation Counseling No . Physical Examination VS/Measurements Vital Signs (last 24 hrs) Last Charted Temp Oral99.1 DegF (JUL 26 03:00) Heart Rate Keytkb165 bpm (JUL 26 03:00) Resp Rate H 22BRMIN (JUL 26 03:00) SBPH 153mmHg (JUL 26 03:00) DBP85 mmHg (JUL 26 03:00) WyW102 % (JUL 26 03:00) Qbqbro11.727 kg (JUL 25 16:04) General: Alert and [...] and Speech: Oriented. Psychiatric: Cooperative, Appropriate mood & affect. Review / Management Results review: Labs (Last four charted values) WBC H 16.8(JUL 26)H 18.2(JUL 25) Hgb L 10.7(JUL 26)L 11.8(JUL 25) Hct L 33.1(JUL 26)36.7(JUL 25) Plt 180(JUL 26)181(JUL 25) Na 137(JUL 26)138(JUL 25) K 3.7(JUL 26)3.8(JUL 25) CO2 L 23(JUL 26)24(JUL 25) Cl 103(JUL 26)99(JUL 25) Cr 0.86(JUL 26)0.94(JUL 25) BUN 9(JUL 26)10(JUL 25) Glucose Random H 108(JUL 26)H 123(JUL 25) Mg L 1.7(JUL 26) Phos 3.0(JUL 26) Ca L 8.3(JUL 26)8.8(JUL 25) PT H 17.6(JUL 25)H 17.6(JUL 25) INR H 1.42(JUL 25)H 1.42(JUL 25) PTT H 39.3(JUL 25)H 38.3(JUL 25) Troponin 0.02(JUL 25)<0.02(JUL 25). Impression and Plan Ms. Everett is a [...] mg qPM dispo: pending clinical improvement Addendum I have seen and examined the patient with the resident on 07/26/2016, and I agree with by Nisha, his/her assessment and plan with the following addendums if applicable: Alton Cutaneous abscess of back [any part, except buttock] (L02.212) Brian MARTINEZ Other chest pain (R07.89) on Unspecified atrial fibrillation (I48.91) 07/26/2016 Chest pain, unspecified (R07.9) 19:59 Pleural effusion, not elsewhere classified (J90) Alton Cameron MD [facility]
[2019-01-12] MEDS ORDERED: MORPHINE SULFATE INJ 4 MG/ML INJ 1ML IV PRN (04:15)
--- NOTE | 2019-01-12 05:32 | Diagnostic Imaging Report ---
CT Abdomen and Pelvis without contrast INDICATION: Right flank pain TECHNIQUE: Thin collimation axial images obtained from the diaphragm to the level of the pubic symphysis without nonionic intravenous contrast. Dose reduction techniques used: Automated exposure control, adjustment of the mAs and/or kVp according to patient size, standardized low-dose protocol, and/or iterative reconstruction technique. RADIATION DOSE: Total DLP: 683.33 mGy*cm Estimated effective dose: (DLP x 0.015 x size factor) mSv CTDIvol has been reviewed. It is below the limits set by the Radiation Protocol Committee (RPC). COMPARISON: Report of CT of the abdomen/pelvis performed 05/16/2013, right upper quadrant ultrasound report 10/05/2013. ABDOMEN FINDINGS: Lung Bases: Bibasilar atelectasis/scarring with prominence of the pulmonary interstitium suggestive of fibrosis.. The heart is mildly enlarged with mitral valve and aortic valve calcifications. Liver: Normal attenuation. Punctate calcifications throughout.. Gallbladder: Absent. Biliary tree: No intrahepatic biliary ductal dilatation. Common bile duct measures 11 mm in diameter (in 2014, 0.5 cm). No intraluminal filling defects. Pancreas: Diffuse fatty atrophy. No mass or ductal dilatation. Spleen: Normal in size with punctate calcifications. Adrenal Glands: No evidence for mass. Kidneys: Right: No renal calculus. No cortical mass or hydronephrosis Left: No renal calculus. No cortical mass or hydronephrosis Lymph Nodes: No enlarged abdominal or retroperitoneal lymph nodes.. Aorta: Tortuous but not aneurysmally dilated with diffuse calcifications PELVIS FINDINGS: Bowel: Stomach: Normal. Small Bowel: Normal in caliber with normal wall thickness. Large Bowel: Moderate amount of inspissated stool throughout. No focal mural thickening or pericolonic inflammation diverticula are present in the sigmoid colon without associated inflammation. 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 Appendix: Not visualized and may be absent. Bladder: Well distended and normal. Ureters: No ureteral dilatation or calculus. The uterus is absent. No adnexal mass. Peritoneum/retroperitoneum: No free fluid or fluid collection. Bones: There is scoliosis of the lumbar spine convex to the left with moderate superimposed degenerative changes. The patient is status post laminectomy from L3 to S1. No fusion hardware. A spinal stimulator is in the lower thoracic spine with the battery pack in the posterior left pelvis. Soft tissues: Fat, clip/calcifications, and soft tissue nodularity of the right breast. No evidence of hernia. IMPRESSION: 1. Moderate burden of stool throughout the colon. Diverticulosis coli. No evidence for bowel obstruction or inflammation. 2. 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 No evidence of choledocholithiasis. 3. No evidence of renal calculus or obstructive uropathy. 4. Nodular soft tissue in the right breast. Recommend correlation with mammogram. Signed by: Dr. Jeanne Marlow MD on 01/12/2019 5:29 AM
[2019-01-12 06:27] LABS: BILIRUBIN,URINE NEGATIVE (NEGATIVE); CLARITY,URINE CLEAR (CLEAR); COLOR,URINE YELLOW (YELLOW); KETONES,URINE NEGATIVE (NEGATIVE); LEUKOCYTE ESTERASE ,URINE SMALL (NEGATIVE); NITRITE,URINE POSITIVE (NEGATIVE); PROTEIN,URINE DIPSTICK NEGATIVE (NEGATIVE); URINE UROBILINOGEN 0.2 mg/dL (0.2 - 1)
[2019-01-12 06:29] LABS: BASOPHILS # (AUTO) 0.1 (0.0-0.1); BASOPHILS % 0.6 % (0.0-1.0); EOSINOPHILS # (AUTO) 0.3 (0.0-0.4); EOSINOPHILS % 1.9 % (0.0-6.0); HEMATOCRIT 39.3 % (34.2-44.1); HEMOGLOBIN 11.7 g/dL (12.0-16.0); LYMPHOCYTES # (AUTO) 2.8 (1.0-3.2); LYMPHOCYTES % 20.8 % (18.0-39.1); MEAN CORPUSCULAR HEMOGLOBIN 24.1 pg (28-32); MEAN CORPUSCULAR HGB CONC 29.8 g/dL (31-35); MONOCYTES % 7.3 % (4.4-11.3); NEUTROPHILS # (AUTO) 9.3 (2.1-6.9); NEUTROPHILS % 68.9 % (38.7-80.0); PLATELET COUNT 259 x10e3/uL (140-360); RED BLOOD COUNT 4.85 x10e6/uL (3.6-5.1); RED CELL DISTRIBUTION WIDTH 15.9 % (11.7-14.4)
--- NOTE | 2019-01-12 06:42 | Diagnostic Imaging Report ---
Hip complete Indication: Right hip pain, no trauma ^r hip pain Technique: AP and frogleg views of right hip obtained. Comparison: CT abdomen/pelvis 0510 hours Findings: Right hip remains properly located. The cortex appears intact throughout. Trochanters appear intact. Minimal spurring evident from the superior acetabulum. Adjacent pubic rami appear intact. Lower lumbar spine demonstrates postoperative changes from laminectomy and endplate degenerative changes. Spinal stimulator battery pack is in the posterior left pelvis. The left hip is intact with mild degenerative changes. There are mild degenerative changes of the sacroiliac joints. There are calcifications of the iliac arteries. IMPRESSION: Right hip properly located. Mild degenerative changes of each hip. Postoperative changes of the lower lumbar spine. Signed by: Dr. Jeanne Marlow MD on 01/12/2019 6:39 AM
[2019-01-12 06:45] LABS: BACTERIA,URINE MODERATE /HPF
--- NOTE | 2019-01-12 06:51 | NUR ---
REPORT AND CARE ENDORSED TO BRUNA LAGUNAS
[2019-01-12] MEDS ORDERED: ONDANSETRON HCL INJ 2MG/ML 2ML 2 MG/ML VIAL IV PRN (07:00)
[2019-01-12] MEDS ORDERED: CEFTRIAXONE SOD 1 GM/NS 50 ML 50 ML IV ONE (07:15)
[2019-01-12] MEDS: SODIUM CHLORIDE 0.9% 1000ML 1,000 ML IV SCH ×2 (07:23→17:12)
--- OUTSIDE RECORDS SUMMARY | 2019-01-12 07:33 | XMS REPORT | Continuity of Care Document ---
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 Name Role Phone Next 1 Interactive Information [employer] Unavailable Unavailable Problems Problem Status Onset Date Classification Date Reported Comments Source Sepsis, unspecified organism 08/22/2017 11/22/2017 [facility] SYNCOPE Active 08/11/2017 [facility] CHEST PAIN Active 07/25/2016 [facility] [id number] Active 07/04/2016 [facility] ABD PAIN Active 03/24/2014 [facility] 724.2, 338.29 Active 01/03/2012 [facility] Lumbago Active Problem 01/19/2012 [facility] AAA (Confirmed) Active Problem 11/22/2017 [facility] Risk for falls Active Problem 11/22/2017 [facility] Back pain Active Problem 11/22/2017 [facility] Chronic pain Active Problem 11/22/2017 [facility] Stroke1 Resolved Problem 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 2005 minor eye drooping [facility] Rotator cuff disorder2 Resolved Problem 11/22/2017 right [facility] Carpal tunnel syndrome Resolved Problem 11/22/2017 [facility] Lumbago Active Problem 11/22/2017 [facility], [facility] [place] Obesity Active Problem 11/22/2017 [facility] Leg pain Active Problem 11/22/2017 [facility] Pneumonia3 Resolved Problem 11/22/2017 x 7 in 4 yrs [facility], [facility] Metabolic encephalopathy 11/22/2017 [facility] Acute respiratory failure with hypoxia 11/22/2017 [facility] Acute kidney failure, unspecified 11/22/2017 [facility] Pneumonia, unspecified organism 11/22/2017 [facility] Chronic obstructive pulmonary disease with acute lower respiratory infection 11/22/2017 [facility] Urinary tract infection, site not specified 11/22/2017 [facility] Dehydration 11/22/2017 [facility] Essential hypertension 11/22/2017 [facility] Hypothyroidism, unspecified 11/22/2017 [facility] Enterococcus as the cause of diseases classified elsewhere 11/22/2017 [facility] A-fib Active Problem 11/22/2017 [facility] COPD (Confirmed) Active Problem 11/22/2017 [facility] IBS (Confirmed) Resolved Problem 11/22/2017 [facility] DVT (Confirmed) Resolved Problem 11/22/2017 [facility] HTN (Confirmed) Resolved Problem 11/22/2017 [facility] LUMBAGO Active [facility] PAIN, UNSPECIFIED Active [facility] OTHER CHRONIC POSTPROCEDURAL PAIN Active [facility] CHEST PAIN, UNSPECIFIED Active [facility] SEPSIS, UNSPECIFIED ORGANISM Active [facility] Medications Medication Details Route Status Patient Instructions Ordering Provider Order Date Source Zofran ODT 4 mg, Route: PO, Drug form: TABDIS, Q8H, Dosing Weight 72.864, kg, PRN Nausea, Priority: NOW, Start date: 08/16/17 12:53:00 TECHNICAL REPORT WRITER, Duration: 30 day, Stop date: 09/15/17 12:52:00 TECHNICAL REPORT WRITER Inactive 08/16/2017 [facility] Potassium Chloride 40 mEq, 2 tab, Route: PO, Drug form: ERTAB, ONCE, Dosing Weight 72.864, kg, Start date: 08/16/17 12:13:00 TECHNICAL REPORT WRITER, Stop date: 08/16/17 12:13:00 CSTNotes: (Same as: K-Dur 20) "Do Not Crush" With food and full glass of water Inactive 08/16/2017 [facility] Potassium Chloride 1.33 MEQ/ML Oral Solution 40 mEq, 2 pkt, Route: PO, Drug form: PDR/REC, Q1H, Dosing Weight 72.864, kg, Start date: 08/16/17 11:00:00 TECHNICAL REPORT WRITER, Duration: 2 doses or times, Stop date: 08/16/17 12:00:00 CSTNotes: (Same as: K-Clementine) With food and full glass of water Inactive 08/16/2017 [facility] Dulcolax Laxative 10 mg, 1 supp, Route: ME, Drug form: SUPP, Daily, Dosing Weight 72.864, kg, PRN Constipation, Start date: 08/16/17 10:01:00 TECHNICAL REPORT WRITER, Duration: 30 day, Stop date: 09/15/17 10:00:00 CSTNotes: (Same As: Dulcolax, [place]-Lax) Inactive 08/16/2017 [facility] Levofloxacin 750 mg, 1 tab, Route: PO, Drug form: TAB, [id number], Dosing Weight 72.864, kg, For CrCl > 49ml/min, Start date: 08/15/17 11:00:00 TECHNICAL REPORT WRITER, Duration: 7 day, Stop date: 08/21/17 9:00:00 TECHNICAL REPORT WRITER, ABX Indication: Urinary Tract InfectionNotes: Do not give w/antacids, dairy pdt & minerals Take 1 hr before or 2 hr after dairy products No Longer Active 08/15/2017 [facility] levofloxacin 750 mg oral tablet 750 mg, PO, [id number], X 10 day, # 10 tab, 0 Refill(s), Pharmacy: [facility] [id number] No Longer Active 08/15/2017 [facility] Fosfomycin 3 gm, 1 pkt, Route: PO, Drug form: PDR/REC, ONCE, Dosing Weight 72.864, kg, Start date: 08/14/17 16:02:00 TECHNICAL REPORT WRITER, Stop date: 08/14/17 16:02:00 CSTNotes: (Same as: Monural) mix w/ 90 to 120 ml (3 to 4 ounc es) of water and stir to dissolve. Do not use hot water. Take immediately after dissolving in water. Inactive 08/14/2017 [facility] Potassium Chloride 1.33 MEQ/ML Oral Solution 40 mEq, 2 pkt, Route: PO, Drug form: PDR/REC, ONCE, Dosing Weight 72.864, kg, Start date: 08/14/17 10:11:00 TECHNICAL REPORT WRITER, Stop date: 08/14/17 10:11:00 CSTNotes: (Same as: K-Clementine) With food and full glass of water Inactive 08/14/2017 [facility] tramadol hydrochloride 50 MG Oral Tablet 50 mg, 1 tab, Route: PO, Drug form: TAB, Q6H, Dosing Weight 72.864, kg, PRN Pain Score 1-3, Priority: NOW, Start date: 08/14/17 2:36:00 TECHNICAL REPORT WRITER, Duration: 30 day, Stop date: 09/13/17 2:35:00 CSTNotes: Not to exceed 400mg/day. (Same As: Ultram) No Longer Active 08/14/2017 [facility] Omeprazole 40 mg, Route: PO, Drug form: DRC, Bedtime, Dosing Weight 72.864, kg, Start date: 08/13/17 21:00:00 TECHNICAL REPORT WRITER, Duration: 30 day, Stop date: 09/11/17 21:00:00 TECHNICAL REPORT WRITER No Longer Active 08/14/2017 [facility] rivaroxaban 15 mg, 1 tab, Route: PO, Drug form: TAB, QPM, Dosing Weight 72.864, kg, Start date: 08/13/17 17:00:00 TECHNICAL REPORT WRITER, Duration: 30 day, Stop date: 09/11/17 17:00:00 CSTNotes: (Same as: Xarelto) Administer with food No Longer Active 08/13/2017 [facility] mometasone furoate 0.05 MG/ACTUAT Metered Dose Nasal [place] [Nasonex] 100 microgram, 2 spray, Route: NASAL, Daily, Drug form: SPRY, Start date: 08/13/17 9:00:00 TECHNICAL REPORT WRITER, Duration: 30 day, Stop date: 09/11/17 9:00:00 TECHNICAL REPORT WRITER No Longer Active 08/13/2017 [facility] Lyrica 25 mg, 1 cap, Route: PO, Drug form: CAP, Daily, Dosing Weight 72.864, kg, Start date: 08/13/17 9:00:00 TECHNICAL REPORT WRITER, Duration: 30 day, Stop date: 09/11/17 9:00:00 CSTNotes: (Same as: Lyrica) No Longer Active 08/13/2017 [facility] Cyclosporine 1 drp, Route: BOTH EYES, Daily, Drug form: DROP, Start date: 08/13/17 9:00:00 TECHNICAL REPORT WRITER, Duration: 30 day, Stop date: 09/11/17 9:00:00 CSTNotes: (Same as: Restasis) No Longer Active 08/13/2017 [facility] Singulair 10 mg, 1 tab, Route: PO, Drug form: TAB, Daily, Dosing Weight 72.864, kg, Start date: 08/13/17 9:00:00 TECHNICAL REPORT WRITER, Duration: 30 day, Stop date: 09/11/17 9:00:00 CSTNotes: (Same as:Singulair) No Longer Active 08/13/2017 [facility] metoprolol tartrate 12.5 mg, 0.5 tab, Route: PO, Drug form: TAB, Q12H, Dosing Weight 72.864, kg, Start date: 08/13/17 9:00:00 TECHNICAL REPORT WRITER, Duration: 30 day, Stop date: 09/11/17 21:00:00 CSTNotes: (Same as: Lopressor) No Longer Active 08/13/2017 [facility] Protonix 40 mg, 1 tab, Route: PO, Drug form: ECTAB, Bedtime, Start date: 08/13/17 0:00:00 TECHNICAL REPORT WRITER, Duration: 30 day, Stop date: 09/11/17 21:00:00 CSTNotes: Tablet should not be chewed or crushed. (Same as: Protonix) No Longer Active 08/13/2017 [facility] Zithromax 500 mg, Route: IVPB, Drug form: PDR/INJ, [id number], Dosing Weight 68.182, kg, Start date: 08/13/17 0:00:00 TECHNICAL REPORT WRITER, Duration: 10 day, Stop date: 08/22/17 0:00:00 TECHNICAL REPORT WRITER, ABX Indication: PneumoniaNotes: (Same As: Zithromax IV) No Longer Active 08/13/2017 [facility] Azithromycin 500 mg, Route: IVPB, Drug form: PDR/INJ, [id number], Dosing Weight 68.182, kg, Start date: 08/13/17 0:00:00 TECHNICAL REPORT WRITER, Duration: 30 day, Stop date: 09/11/17 0:00:00 TECHNICAL REPORT WRITER, ABX Indication: PneumoniaNotes: (Same As: Zithromax IV) No Longer Active 08/13/2017 [facility] Simvastatin 10 mg, 1 tab, Route: PO, Drug form: TAB, Bedtime, Dosing Weight 72.864, kg, Start date: 08/13/17 0:00:00 TECHNICAL REPORT WRITER, Duration: 30 day, Stop date: 09/11/17 21:00:00 CSTNotes: (Same as: Zocor) No Longer Active 08/13/2017 [facility] Rocephin 1 gm, Route: IVP, Drug form: PDR/INJ, [id number], Dosing Weight 68.182, kg, Start date: 08/12/17 21:00:00 TECHNICAL REPORT WRITER, Duration: 10 day, Stop date: 08/21/17 21:00:00 TECHNICAL REPORT WRITER, ABX Indication: PneumoniaNotes: (Same As: Rocephin). Use with 100 mL NS and infuse over 30 min MEDICATION WASTE Product Size: 1000 mg Product Wasted: ___ mg No Longer Active 08/13/2017 [facility] pregabalin 25 MG Oral Capsule [Lyrica] 25 mg=1 cap, PO, Daily, # 30 cap, 0 Refill(s) Active 08/12/2017 [facility] montelukast 10 MG Oral Tablet [Singulair] 10 mg=1 tab, PO, Daily, 0 Refill(s) Active 08/12/2017 [facility] rivaroxaban 20 MG Oral Tablet [Xarelto] 20 mg=1 tab, PO, QPM, # 30 tab, 3 Refill(s) No Longer Active 08/12/2017 [facility] metoprolol 25 mg oral tablet, extended release 25 mg=1 tab, PO, TID, 0 Refill(s) Active 08/12/2017 [facility] Amlodipine 5 mg, PO, Daily, 0 Refill(s) No Longer Active 08/12/2017 [facility] losartan 25 mg oral tablet 25 mg=1 tab, PO, Daily, 0 Refill(s) Active 08/12/2017 [facility] fluticasone nasal 2 spray, Route: Each Affected Nostril, Drug Form: SPRY, Daily, Start date: 08/12/17 13:00:00 TECHNICAL REPORT WRITER, Duration: 30 day, Stop date: 09/11/17 9:00:00 CSTNotes: (Same as: Flonase) No Longer Active 08/12/2017 [facility] Albuterol 0.833 MG/ML / Ipratropium [place] 0.167 MG/ML Inhalant Solution [DuoNeb] 3 ml, Route: NEB, Drug Form: SOLN, Dosing Weight 72.864, kg, Q4H, Start date: 08/12/17 12:00:00 TECHNICAL REPORT WRITER, Duration: 30 day, Stop date: 09/11/17 8:00:00 CSTNotes: (Same as: Duoneb) No Longer Active 08/12/2017 [facility] metoprolol tartrate 25 mg, 1 tab, Route: PO, Drug form: TAB, Q6H, Dosing Weight 72.864, kg, Start date: 08/12/17 12:00:00 TECHNICAL REPORT WRITER, Stop date: 08/15/17 11:08:00 CSTNotes: (Same as: Lopressor) No Longer Active 08/12/2017 [facility] Thyroxine 50 microgram, 1 tab, Route: PO, Drug form: TAB, [id number], Dosing Weight 72.864, kg, Start date: 08/12/17 11:30:00 TECHNICAL REPORT WRITER, Duration: 30 day, Stop date: 09/11/17 6:30:00 CSTNotes: Take 1 hour before or 2 hours after meal; Enteral feeds may interefere with the absorption of this medication.(Same as:Levothroid, Synthroid) No Longer Active 08/12/2017 [facility] Streptococcus pneumoniae serotype 1 capsular antigen diphtheria [id number] protein conjugate vaccine / Streptococcus pneumoniae serotype 14 capsular antigen diphtheria [id number] protein conjugate vaccine / Streptococcus pneumoniae serotype 18C capsular antigen d 0.5 mL, Route: IM, Drug Form: INJ, ONCALL, Start date: 08/12/17 11:00:00 TECHNICAL REPORT WRITER, Duration: 1 doses or times, Stop date: 09/09/17 0:00:00 CSTNotes: Shake well prior to use (Same as: Prevnar 13) No Longer Active 08/12/2017 [facility] Lovenox 40 mg, 0.4 mL, Route: SUB-Q, Drug form: INJ, [id number], Dosing Weight 72.864, kg, Start date: 08/12/17 10:00:00 TECHNICAL REPORT WRITER, Duration: 30 day, Stop date: 09/09/17 13:00:00 CSTNotes: (Same as: Lovenox) Inactive 08/12/2017 [facility] Budesonide 0.25 MG/ML Inhalant Solution 0.5 mg, 2 mL, Route: NEB, Drug form: SUSP, RBID, Dosing Weight 72.864, kg, Start date: 08/12/17 9:50:00 TECHNICAL REPORT WRITER, Duration: 30 day, Stop date: 09/11/17 8:00:00 CSTNotes: (Same As: Pulmicort) No Longer Active 08/12/2017 [facility] Metoprolol 5 mg, 5 mL, Route: IVP, Drug form: INJ, Q4H, Dosing Weight 68.182, kg, PRN Other -See Comment, Start date: 08/12/17 3:54:00 TECHNICAL REPORT WRITER, Duration: 30 day, Stop date: 09/11/17 3:53:00 CSTNotes: (Same as: Lopr essor) Push over 2 minutes No Longer Active 08/12/2017 [facility] Hydralazine 10 mg, 0.5 mL, Route: IVP, Drug form: INJ, Q4H, Dosing Weight 68.182, kg, PRN Other -See Comment, Start date: 08/12/17 3:54:00 TECHNICAL REPORT WRITER, Duration: 30 day, Stop date: 09/11/17 3:53:00 CSTNotes: (Same as: A presoline) Push over 5 minutes No Longer Active 08/12/2017 [facility] Sodium Chloride 0.9% IV 1,000 mL 1,000 mL, Rate: 45 ml/hr, Infuse over: 22.2 hr, Route: IV, Dosing Weight 72.864 kg, Total Volume: 1,000, Start date: 08/12/17 3:50:00 TECHNICAL REPORT WRITER, Stop date: 09/11/17 3:49:00 TECHNICAL REPORT WRITER, 1.83, m2 No Longer Active 08/12/2017 [facility] Saline Flush 0.9% 10 ml, Route: IVP, Drug Form: INJ, Dosing Weight 68.182, kg, PRN, PRN Line Flush, Start date: 08/12/17 3:50:00 TECHNICAL REPORT WRITER, Duration: 30 day, Stop date: 09/11/17 3:49:00 CSTNotes: (Same as: BD Posiflush) No Longer Active 08/12/2017 [facility] Ondansetron 4 mg, 2 mL, Route: IVP, Drug form: INJ, Q6H, Dosing Weight 68.182, kg, PRN Nausea & Vomiting, Start date: 08/12/17 3:50:00 TECHNICAL REPORT WRITER, Duration: 30 day, Stop date: 09/11/17 3:49:00 CSTNotes: (Same as: Zofran) MEDICATION WASTE Product Size: 4 mg Product Wasted: ___ mg No Longer Active 08/12/2017 [facility] Acetaminophen 650 mg, 2 tab, Route: PO, Drug form: TAB, Q4H, Dosing Weight 68.182, kg, PRN Pain Score 1-3, For fever > 100.4. Not to exceed 4 grams in 24 hours, Start date: 08/12/17 3:50:00 TECHNICAL REPORT WRITER, Duration: 30 day, Stop date: 09/11/17 3:49:00 CSTNotes: Do not exceed 4 gm/day. (Same as: Tylenol) No Longer Active 08/12/2017 [facility] Dextromethorphan Hydrobromide 2 MG/ML / Guaifenesin 20 MG/ML Oral Solution 10 mL, Route: PO, Drug Form: LIQ, Dosing Weight 68.182, kg, Q4H, PRN Cough, Start date: 08/12/17 3:50:00 TECHNICAL REPORT WRITER, Duration: 30 day, Stop date: 09/11/17 3:49:00 CSTNotes: (dextromethorphan-guaifenesin 10-100/5 ml LIQ) (Same as: Robitussin-DM) No Longer Active 08/12/2017 [facility] Albuterol 0.83 MG/ML Inhalant Solution 2.49 mg, 3 mL, Route: INHALATION, Drug form: SOLN, PRN, Dosing Weight 68.182, kg, PRN Respiratory Protocol, Start date: 08/12/17 3:50:00 TECHNICAL REPORT WRITER, Duration: 30 day, Stop date: 09/11/17 3:49:00 CSTNotes: SEE RT DOCUMENTATION (Same as: Proventil) No Longer Active 08/12/2017 [facility] Saline Flush 0.9% 10 ml, Route: IVP, Drug Form: INJ, Dosing Weight 68.182, kg, PRN, PRN Line Flush, Start date: 08/12/17 0:51:00 TECHNICAL REPORT WRITER, Duration: 30 day, Stop date: 09/11/17 0:50:00 CSTNotes: (Same as: BD Posiflush) Inactive 08/12/2017 [facility] Sodium Chloride 0.9% IV 1,000 mL 1,000 mL, Rate: 75 ml/hr, Infuse over: 13.3 hr, Route: IV, Dosing Weight 68.182 kg, Total Volume: 1,000, Start date: 08/12/17 0:51:00 TECHNICAL REPORT WRITER, Duration: 30 day, Stop date: 09/11/17 0:50:00 TECHNICAL REPORT WRITER, 1.77, m2 Inactive 08/12/2017 [facility] Acetaminophen 650 mg, 2 tab, Route: PO, Drug form: TAB, Q4H, Dosing Weight 68.182, kg, PRN Pain Score 1-3, For fever > 100.4. Not to exceed 4 grams in 24 hours, Start date: 08/12/17 0:51:00 TECHNICAL REPORT WRITER, Duration: 30 day, Stop date: 09/11/17 0:50:00 CSTNotes: Do not exceed 4 gm/day. (Same as: Tylenol) Inactive 08/12/2017 [facility] Ondansetron 4 mg, 2 mL, Route: IVP, Drug form: INJ, Q6H, Dosing Weight 68.182, kg, PRN Nausea & Vomiting, Start date: 08/12/17 0:51:00 TECHNICAL REPORT WRITER, Duration: 30 day, Stop date: 09/11/17 0:50:00 CSTNotes: (Same as: Zofran) MEDICATION WASTE Product Size: 4 mg Product Wasted: ___ mg Inactive 08/12/2017 [facility] Dextromethorphan Hydrobromide 2 MG/ML / Guaifenesin 20 MG/ML Oral Solution 10 mL, Route: PO, Drug Form: LIQ, Dosing Weight 68.182, kg, Q4H, PRN Cough, Start date: 08/12/17 0:51:00 TECHNICAL REPORT WRITER, Duration: 30 day, Stop date: 09/11/17 0:50:00 CSTNotes: (dextromethorphan-guaifenesin 10-100/5 ml LIQ) (Same as: Robitussin-DM) Inactive 08/12/2017 [facility] Albuterol 0.833 MG/ML / Ipratropium [place] 0.167 MG/ML Inhalant Solution 3 mL, Route: INHALATION, Drug Form: SOLN, Dosing Weight 68.182, kg, PRN, PRN Respiratory Protocol, Start date: 08/12/17 0:51:00 TECHNICAL REPORT WRITER, Duration: 30 day, Stop date: 09/11/17 0:50:00 CSTNotes: (Same as: Duoneb) Inactive 08/12/2017 [facility] Azithromycin 500 mg, Route: IVPB, ONCE, Dosing Weight 68.182, kg, Priority: STAT, Start date: 08/12/17 0:10:00 TECHNICAL REPORT WRITER, Stop date: 08/12/17 0:10:00 TECHNICAL REPORT WRITER, ABX Indication: Pneumonia Inactive 08/12/2017 [facility] NS (Bolus) IV 500 mL, 500 ml/hr, Infuse Over: 1 hr, Route: IV, 500, Drug form: INJ, ONCE, Priority: STAT, Dosing Weight 68.182 kg, Start date: 08/11/17 23:23:00 TECHNICAL REPORT WRITER, Stop date: 08/11/17 23:23:00 TECHNICAL REPORT WRITER No Longer Active 08/12/2017 [facility] Ceftriaxone 1 gm, Route: IVP, ONCE, Dosing Weight 68.182, kg, Priority: STAT, Start date: 08/11/17 21:21:00 TECHNICAL REPORT WRITER, Stop date: 08/11/17 21:21:00 TECHNICAL REPORT WRITER, ABX Indication: Urinary Tract InfectionNotes: (Same As: Rocephin). Use with 100 mL NS and infuse over 30 min MEDICATION WASTE Product Size: 1000 mg Product Wasted0 mg Inactive 08/12/2017 [facility] Visipaque 320 mg/mL injectable solution 100 mL, Route: IVP, Drug Form: SOLN, Dosing Weight 68.182, kg, ONCALL, GFR 31 - 45 mL/min, STAT, Start date: 08/11/17 21:20:00 TECHNICAL REPORT WRITER, Duration: 1 doses or timesNotes: (Same as: Visipaque). WASTE: F/P - Black; E - Municipal Trash Bin Inactive 08/12/2017 [facility] NS (Bolus) IV 500 mL, 500 ml/hr, Infuse Over: 1 hr, Route: IV, 500, Drug form: INJ, ONCE, Priority: STAT, Dosing Weight 68.182 kg, Start date: 08/11/17 19:45:00 TECHNICAL REPORT WRITER, Stop date: 08/11/17 19:45:00 TECHNICAL REPORT WRITER Inactive 08/12/2017 [facility] Saline Flush 0.9% 10 mL, Route: IVP, Drug Form: INJ, Dosing Weight 68.182, kg, PRN, PRN Line Flush, Start date: 08/11/17 19:31:00 TECHNICAL REPORT WRITER, Duration: 30 day, Stop date: 09/10/17 19:30:00 CSTNotes: (Same as: BD Posiflush) No Longer Active 08/12/2017 [facility] Xarelto 20 mg, Route: PO, QPM, Dosing Weight 82.545, kg, Start date: 07/28/16 17:00:00 TECHNICAL REPORT WRITER, Duration: 30 day, Stop date: 08/26/16 17:00:00 TECHNICAL REPORT WRITER Inactive 07/28/2016 [facility] rivaroxaban 15 mg, 1 tab, Route: PO, Drug form: TAB, QPM, Start date: 07/28/16 17:00:00 TECHNICAL REPORT WRITER, Duration: 30 day, Stop date: 08/26/16 17:00:00 CSTNotes: (Same as: Xarelto) Administer with food Inactive 07/28/2016 [facility] tramadol hydrochloride 50 MG Oral Tablet 50 mg=1 tab, PO, Q6H, PRN Pain, X 10 day, # 40 tab, 0 Refill(s) Active 07/28/2016 [facility] rivaroxaban 15 mg oral tablet 15 mg=1 tab, PO, QPM, # 30 tab, 0 Refill(s) Active 07/28/2016 [facility] metoprolol tartrate 50 mg oral tablet 100 mg=2 tab, PO, Q12H, # 120 tab, 2 Refill(s) Active 07/28/2016 [facility] Tylenol 500 mg, 1 tab, Route: PO, Drug form: TAB, ONCE, Dosing Weight 82.545, kg, Start date: 07/28/16 11:35:00 TECHNICAL REPORT WRITER, Stop date: 07/28/16 11:35:00 CSTNotes: Max acetaminophen 4000 mg/day (4 gm/day). (Same as: Tylenol Extra Strength) Inactive 07/28/2016 [facility] potassium chloride 20 mEq oral tablet, extended release 40 mEq, 2 tab, Route: PO, Drug form: ERTAB, ONCE, Dosing Weight 82.545, kg, Start date: 07/28/16 9:17:00 TECHNICAL REPORT WRITER, Stop date: 07/28/16 9:17:00 CSTNotes: (Same as: K- Dur 20) "Do Not Crush" With food and full glass of water Inactive 07/28/2016 [facility] Levothroid 50 microgram, 1 tab, Route: PO, Drug form: TAB, Q630AM, Start date: 07/28/16 6:30:00 TECHNICAL REPORT WRITER, Duration: 30 day, Stop date: 08/26/16 6:30:00 CSTNotes: Take 1 hour before or 2 hours after meal; Enteral feeds may interefere with the absorption of this medication.(Same as:Levothroid, Synthroid) Inactive 07/28/2016 [facility] metoprolol tartrate 100 mg, 2 tab, Route: PO, Drug form: TAB, Q12H, Dosing Weight 82.727, kg, Start date: 07/27/16 21:00:00 TECHNICAL REPORT WRITER, Duration: 30 day, Stop date: 08/26/16 9:00:00 CSTNotes: (Same as: Lopressor) No Longer Active 07/28/2016 [facility] Streptococcus pneumoniae serotype 1 capsular antigen diphtheria [id number] protein conjugate vaccine / Streptococcus pneumoniae serotype 14 capsular antigen diphtheria [id number] protein conjugate vaccine / Streptococcus pneumoniae serotype 18C capsular antigen d 0.5 mL, Route: IM, Drug Form: INJ, Daily, Start date: 07/27/16 9:00:00 TECHNICAL REPORT WRITER, Duration: 1 doses or times, Stop date: 07/27/16 9:00:00 CSTNotes: Lightly roll vial (DO NOT SHAKE) before administration. (Same as: Prevnar 13) Inactive 07/27/2016 [facility] Magnesium Sulfate 1 gm, 100 mL, Route: IVPB, Drug form: INJ, ONCE, Dosing Weight 82.545, kg, Start date: 07/27/16 8:19:00 TECHNICAL REPORT WRITER, Stop date: 07/27/16 8:19:00 CSTNotes: WASTE: F/P - Sink; E - Municipal Trash Bin Inactive 07/27/2016 [facility] Vancomycin 1.5 gm, Route: IV, [id number], Dosing Weight 82.545, kg, Priority: NOW, Start date: 07/27/16 8:18:00 TECHNICAL REPORT WRITER, Duration: 30 day, Stop date: 08/25/16 8:18:00 CSTNotes: TIME CRITICAL MEDICATION (Same As: Vancocin) Infusion rate 2001 mg: infuse over 2.5 hours MEDICATION WASTE Product Size: 1000 mg Product Wasted: ___ mg Inactive 07/27/2016 [facility] Simvastatin 10 mg, 1 tab, Route: PO, Drug form: TAB, Bedtime, Dosing Weight 82.727, kg, Start date: 07/26/16 21:00:00 TECHNICAL REPORT WRITER, Duration: 30 day, Stop date: 08/24/16 21:00:00 CSTNotes: (Same as: Zocor) No Longer Active 07/27/2016 [facility] Omeprazole 40 mg, Route: PO, Drug form: DRC, Bedtime, Dosing Weight 82.727, kg, Start date: 07/26/16 21:00:00 TECHNICAL REPORT WRITER, Duration: 30 day, Stop date: 08/24/16 21:00:00 TECHNICAL REPORT WRITER Inactive 07/27/2016 [facility] mometasone furoate 0.05 MG/ACTUAT Metered Dose Nasal [place] [Nasonex] 2 spray, NASAL, Daily, 0 Refill(s) Active 07/27/2016 [facility] rivaroxaban 20 MG Oral Tablet [Xarelto] 20 mg=1 tab, PO, QPM, # 30 tab, 3 Refill(s) No Longer Active 07/27/2016 [facility] phenazopyridine 200 mg oral tablet 200 mg=1 tab, PO, Q6H Active 07/27/2016 [facility] Cyclosporine 0.5 MG/ML Ophthalmic Suspension [Restasis] 2 drp, BOTH EYES, Daily Active 07/27/2016 [facility] Symbicort 80/4.5 inhalation aerosol with adapter 1 puff, INHALATION, BID Active 07/27/2016 [facility] metoprolol tartrate 25 mg oral tablet 25 mg=1 tab, PO, BID No Longer Active 07/27/2016 [facility] Albuterol 0.83 MG/ML Inhalant Solution 2.5 mg=3 mL, INHALATION, TID, PRN prn Active 07/27/2016 [facility] lysine 500 mg oral tablet 1,000 mg=2 tab, PO, Daily Active 07/27/2016 [facility] levocetirizine 5 mg oral tablet 5 mg=1 tab, PO, QAM Active 07/27/2016 [facility] levothyroxine 50 mcg (0.05 mg) oral tablet 50 microgram=1 tab, PO, Daily Active 07/27/2016 [facility] Xarelto 20 mg, 1 tab, Route: PO, Drug form: TAB, QPM, Dosing Weight 82.727, kg, Start date: 07/26/16 17:00:00 TECHNICAL REPORT WRITER, Duration: 30 day, Stop date: 08/24/16 17:00:00 CSTNotes: (Same as: Xarelto) Administer with food Inactive 07/26/2016 [facility] Protonix 40 mg, 1 tab, Route: PO, Drug form: ECTAB, Before Dinner, Start date: 07/26/16 16:30:00 TECHNICAL REPORT WRITER, Duration: 30 day, Stop date: 08/24/16 16:30:00 CSTNotes: Tablet should not be chewed or crushed. (Same as: Protonix) No Longer Active 07/26/2016 [facility] metoprolol tartrate 50 mg, 1 tab, Route: PO, Drug form: TAB, Q8H, Dosing Weight 82.727, kg, Start date: 07/26/16 16:00:00 TECHNICAL REPORT WRITER, Duration: 30 day, Stop date: 08/25/16 8:00:00 CSTNotes: (Same as: Lopressor) No Longer Active 07/26/2016 [facility] Furosemide 40 MG Oral Tablet [Lasix] 40 mg, 1 tab, Route: PO, Drug form: TAB, Daily, Dosing Weight 82.727, kg, Priority: NOW, Start date: 07/26/16 14:52:00 TECHNICAL REPORT WRITER, Duration: 30 day, Stop date: 08/25/16 9:00:00 CSTNotes: (Same as: Lasix) No Longer Active 07/26/2016 [facility] Vancomycin 1.25 gm, 250 mL, Route: IV, Drug form: INJ, ONCE, Dosing Weight 82.727, kg, Priority: NOW, Start date: 07/26/16 10:38:00 TECHNICAL REPORT WRITER, Stop date: 07/26/16 10:38:00 CSTNotes: TIME CRITICAL MEDICATION Same as: Vancocin-NS (premixed) Infusion rate 2001 mg: infuse over 2.5 hours Inactive 07/26/2016 [facility] Amlodipine 2.5 mg, Route: PO, Drug form: TAB, Daily, Dosing Weight 82.727, kg, Start date: 07/26/16 9:00:00 TECHNICAL REPORT WRITER, Duration: 30 day, Stop date: 08/24/16 9:00:00 TECHNICAL REPORT WRITER No Longer Active 07/26/2016 [facility] 24 HR Metoprolol Tartrate 25 MG Extended Release Tablet [Toprol] 25 mg, 1 tab, Route: PO, Drug form: ERTAB, Daily, Start date: 07/26/16 9:00:00 TECHNICAL REPORT WRITER, Duration: 30 day, Stop date: 08/24/16 9:00:00 CSTNotes: (Same as: Toprol XL) Do Not Crush Inactive 07/26/2016 [facility] Losartan 25 mg, Route: PO, Drug form: TAB, Daily, Dosing Weight 82.727, kg, Start date: 07/26/16 9:00:00 TECHNICAL REPORT WRITER, Duration: 30 day, Stop date: 08/24/16 9:00:00 TECHNICAL REPORT WRITER No Longer Active 07/26/2016 [facility] Metoprolol 5 mg, Route: IV, ONCE, Dosing Weight 82.727, kg, Start date: 07/26/16 8:53:00 TECHNICAL REPORT WRITER, Stop date: 07/26/16 8:53:00 TECHNICAL REPORT WRITER Inactive 07/26/2016 [facility] metoprolol tartrate 25 mg, Route: PO, Drug form: TAB, ONCE, Dosing Weight 82.727, kg, Start date: 07/26/16 8:53:00 TECHNICAL REPORT WRITER, Stop date: 07/26/16 8:53:00 TECHNICAL REPORT WRITER Inactive 07/26/2016 [facility] Metoprolol 5 mg, Route: IV, ONCE, Dosing Weight 82.727, kg, Start date: 07/26/16 8:21:00 TECHNICAL REPORT WRITER, Stop date: 07/26/16 8:21:00 TECHNICAL REPORT WRITER Inactive 07/26/2016 [facility] Symbicort 80/4.5 inhalation aerosol with adapter 2 inhalation, Route: INHALATION, Drug Form: AERO/A, Dosing Weight 82.727, kg, RBID, Start date: 07/26/16 8:00:00 TECHNICAL REPORT WRITER, Duration: 30 day, Stop date: 08/24/16 20:00:00 CSTNotes: (Same as: Symbicort) WASTE: Aerosol - Return to Pharmacy No Longer Active 07/26/2016 [facility] Tramadol 50 mg, 1 tab, Route: PO, Drug form: TAB, Q6H, Dosing Weight 82.727, kg, PRN Pain Score 6-10, Start date: 07/26/16 6:53:00 TECHNICAL REPORT WRITER, Duration: 30 day, Stop date: 08/25/16 6:52:00 CSTNotes: Not to exceed 40 0mg/day. (Same As: Ultram) No Longer Active 07/26/2016 [facility] Albuterol 0.833 MG/ML / Ipratropium [place] 0.167 MG/ML Inhalant Solution 3 mL, Route: NEB, Drug Form: SOLN, Dosing Weight 82.727, kg, RQ4H, PRN Respiratory Protocol, Start date: 07/26/16 4:04:00 TECHNICAL REPORT WRITER, Stop date: 08/25/16 3:00:00 CSTNotes: (Same as: Duoneb) No Longer Active 07/26/2016 [facility] Sodium Chloride 0.9% IV 1000 mL 1,000 mL, Rate: 100 ml/hr, Infuse over: 10 hr, Route: IV, Dosing Weight 82.727 kg, Total Volume: 1,000, Start date: 07/26/16 1:01:00 TECHNICAL REPORT WRITER, Duration: 30 day, Stop date: 08/25/16 1:00:00 TECHNICAL REPORT WRITER Inactive 07/26/2016 [facility] tramadol hydrochloride 50 MG Oral Tablet 50 mg, 1 tab, Route: PO, Drug form: TAB, Q6H, Dosing Weight 82.727, kg, PRN Pain Score 6-10, Start date: 07/25/16 22:50:00 TECHNICAL REPORT WRITER, Duration: 30 day, Stop date: 08/24/16 22:49:00 CSTNotes: Not to exceed 400mg/day. (Same As: Ultram) No Longer Active 07/26/2016 [facility] Albuterol 0.833 MG/ML / Ipratropium [place] 0.167 MG/ML Inhalant Solution 3 mL, Route: INHALATION, Drug Form: SOLN, Dosing Weight 82.727, kg, RQ6H, PRN Wheezing, Start date: 07/25/16 22:46:00 TECHNICAL REPORT WRITER, Duration: 30 day, Stop date: 08/24/16 22:45:00 CSTNotes: (Same as: Duoneb) No Longer Active 07/26/2016 [facility] Ceftazidime 1 gm, Route: IV, Drug form: PDR/INJ, ABXQ8H, Dosing Weight 82.727, kg, Start date: 07/25/16 22:00:00 TECHNICAL REPORT WRITER, Duration: 30 day, Stop date: 08/24/16 14:00:00 CSTNotes: (Same as: Fortaz) MEDICATION WASTE Product Size: 1000 mg Product Wasted: ___ mg No Longer Active 07/26/2016 [facility] Amlodipine 2.5 mg, 1 tab, Route: PO, Drug form: TAB, ONCE, Dosing Weight 82.727, kg, Start date: 07/25/16 21:18:00 TECHNICAL REPORT WRITER, Stop date: 07/25/16 21:18:00 CSTNotes: (Same as: Norvasc) No Longer Active 07/26/2016 [facility] Benadryl 25 mg, 0.5 mL, Route: IVP, Drug form: INJ, ONCE, Dosing Weight 82.727, kg, Priority: STAT, Start date: 07/25/16 21:17:00 TECHNICAL REPORT WRITER, Stop date: 07/25/16 21:17:00 CSTNotes: (Same as: Benadryl) No Longer Active 07/26/2016 [facility] Vancomycin 2 gm, Route: IV, ONCE, Dosing Weight 82.727, kg, Start date: 07/25/16 21:16:00 TECHNICAL REPORT WRITER, Stop date: 07/25/16 21:16:00 CSTNotes: TIME CRITICAL MEDICATION (Same As: Vancocin) Infusion rate 2001 mg: infuse ov er 2.5 hours MEDICATION WASTE Product Size: 1000 mg Product Wasted: ___ mg No Longer Active 07/26/2016 [facility] Sodium Chloride 0.154 MEQ/ML Injectable Solution 1,000 mL, 1,000 ml/hr, Infuse Over: 1 hr, Route: IV, ONCE, Priority: STAT, Dosing Weight 82.727 kg, Start date: 07/25/16 20:26:00 TECHNICAL REPORT WRITER, Duration: 1 doses or times, Stop date: 07/25/16 20:26:00 TECHNICAL REPORT WRITER Inactive 07/26/2016 [facility] Saline Flush 0.9% 10 mL, Route: IVP, Drug Form: INJ, Dosing Weight 82.727, kg, PRN, PRN Line Flush, Start date: 07/25/16 20:05:00 TECHNICAL REPORT WRITER, Duration: 30 day, Stop date: 08/24/16 20:04:00 CSTNotes: (Same as: BD Posiflush) No Longer Active 07/26/2016 [facility] metoprolol tartrate 25 mg, Route: PO, Drug form: TAB, ONCE, Dosing Weight 82.727, kg, Priority: STAT, Start date: 07/25/16 20:05:00 TECHNICAL REPORT WRITER, Stop date: 07/25/16 20:05:00 TECHNICAL REPORT WRITER Inactive 07/26/2016 [facility] iodixanol 70 mL, Route: IVP, Drug Form: SOLN, Dosing Weight 82.727, kg, ONCALL, STAT, Start date: 07/25/16 18:33:00 TECHNICAL REPORT WRITER, Duration: 1 doses or times, Dose=2.2ml/kg, Max qwft=[id number] -- "To be infused by Radiology Staff ONLY" Inactive 07/26/2016 [facility] Morphine 2 mg, Route: IVP, ONCE, Dosing Weight 82.727, kg, Priority: STAT, Start date: 07/25/16 17:44:00 TECHNICAL REPORT WRITER, Stop date: 07/25/16 17:44:00 TECHNICAL REPORT WRITER Inactive 07/25/2016 [facility] lidocaine (ANES) Route: IV, Drug form: INJ, ONCE, Stop date: 07/22/16 10:13:00 TECHNICAL REPORT WRITER Inactive 07/22/2016 [facility] fentaNYL (ANES) Route: IV, Drug form: INJ, ONCE, Stop date: 07/22/16 10:13:00 TECHNICAL REPORT WRITER Inactive 07/22/2016 [facility] ondansetron (ANES) Route: IV, Drug form: INJ, ONCE, Stop date: 07/22/16 10:13:00 TECHNICAL REPORT WRITER Inactive 07/22/2016 [facility] propofol (ANES) (ANES) Route: IV, Drug form: INJ, Start date: 07/22/16 9:47:00 TECHNICAL REPORT WRITER, Stop date: 07/22/16 10:47:00 TECHNICAL REPORT WRITER Inactive 07/22/2016 [facility] vancomycin (ANES) (ANES) Route: IV, Drug form: INJ, Start date: 07/22/16 9:35:00 TECHNICAL REPORT WRITER, Stop date: 07/22/16 10:35:00 TECHNICAL REPORT WRITER Inactive 07/22/2016 [facility] LR 1000 mL INJ (ANES) Route: IV, Total Volume: 1,000, Start date: 07/22/16 9:32:00 TECHNICAL REPORT WRITER, Stop date: 07/22/16 10:32:00 TECHNICAL REPORT WRITER Inactive 07/22/2016 [facility] tramadol hydrochloride 50 MG Oral Tablet 50 mg=1 tab, PO, Q6H, PRN Pain, X 10 day, # 40 tab, 0 Refill(s) Active 07/22/2016 [facility] Docusate Sodium 100 MG Oral Capsule 100 mg=1 cap, PO, BID, # 30 cap, 1 Refill(s), Pharmacy: [facility] [id number] Active 07/22/2016 [facility] Albuterol 0.83 MG/ML Inhalant Solution 2.5 mg, 0.5 mL, Route: NEB, Drug form: SOLN, Q20Min, Dosing Weight 83.182, kg, PRN Wheezing, Priority: STAT, Start date: 07/22/16 7:02:00 TECHNICAL REPORT WRITER, Duration: 12 hr, Stop date: 07/22/16 19:01:00 CSTNotes: SEE RT DOCUMENTATION MEDICATION WASTE Product Size: 2.5 mg Product Wasted: ___ mg Inactive 07/22/2016 [facility] Diphenhydramine 12.5 mg, 0.25 mL, Route: IVP, Drug form: INJ, Q6H, Dosing Weight 83.182, kg, PRN Itching, Start date: 07/22/16 7:02:00 TECHNICAL REPORT WRITER, Duration: 12 hr, Stop date: 07/22/16 19:01:00 CSTNotes: (Same as: Benadryl) Inactive 07/22/2016 [facility] Glycopyrrolate 0.2 mg, 1 mL, Route: IVP, Drug form: INJ, Q5Min, Dosing Weight 83.182, kg, PRN Bradycardia, Start date: 07/22/16 7:02:00 TECHNICAL REPORT WRITER, Duration: 3 doses or times, Stop date: 07/22/16 19:00:00 CSTNotes: (Same as: Rubina) Inactive 07/22/2016 [facility] Meperidine 12.5 mg, 0.5 mL, Route: IVP, Drug form: INJ, Q30Min, Dosing Weight 83.182, kg, PRN Other -See Comment, For shivering, Start date: 07/22/16 7:02:00 TECHNICAL REPORT WRITER, Duration: 2 doses or times, Stop date: 07/22/16 19 :00:00 CSTNotes: (Same as: Demerol) "Use Precaution in Elderly, Seizure disorders, and Renal impairment" Inactive 07/22/2016 [facility] Ondansetron 4 mg, 2 mL, Route: IVP, Drug form: INJ, ONCE, Dosing Weight 83.182, kg, PRN Nausea & Vomiting, Start date: 07/22/16 7:02:00 CSTNotes: (Same as: Zofran) MEDICATION WASTE Product Size: 4 mg Product Wasted: ___ mg Inactive 07/22/2016 [facility] Fentanyl 50 microgram, 1 mL, Route: IVP, Drug form: INJ, Q5Min, Dosing Weight 83.182, kg, PRN Pain Score 7-10, Priority: Routine, Start date: 07/22/16 7:02:00 TECHNICAL REPORT WRITER, Duration: 2 doses or times, Stop date: 07/22/16 19:00:00 CSTNotes: (Same as: Sublimaze) Preservative free. Inactive 07/22/2016 [facility] Naloxone 0.4 mg, 1 mL, Route: IVP, Drug form: INJ, Q2MIN, Dosing Weight 83.182, kg, PRN Narcotic Reversal, Start date: 07/22/16 7:02:00 TECHNICAL REPORT WRITER, Duration: 8 doses or times, Stop date: 07/22/16 19:00:00 CSTNotes: Same as Narcan Inactive 07/22/2016 [facility] Flumazenil 0.2 mg, 2 mL, Route: IVP, Drug form: INJ, PRN, Dosing Weight 83.182, kg, PRN Benzodiazepine Reversal, Initial dose, Start date: 07/22/16 7:02:00 TECHNICAL REPORT WRITER, Duration: 12 hr, Stop date: 07/22/16 19:01:00 TECHNICAL REPORT WRITER Notes: (Same as: Romazicon) Inactive 07/22/2016 [facility] Ephedrine 5 mg, 0.1 mL, Route: IVP, Drug form: INJ, Q5Min, Dosing Weight 83.182, kg, PRN Low Blood Pressure, Start date: 07/22/16 7:02:00 TECHNICAL REPORT WRITER, Duration: 12 hr, Stop date: 07/22/16 19:01:00 CSTNotes: (Same as: ePHEDrine Sulfate) Inactive 07/22/2016 [facility] Oxycodone 5 mg, 1 tab, Route: PO, Drug form: TAB, Q4H, Dosing Weight 83.182, kg, PRN Pain Score 1-3, Start date: 07/22/16 7:02:00 TECHNICAL REPORT WRITER, Duration: 12 hr, Stop date: 07/22/16 19:01:00 CSTNotes: (Same as: Roxicodone) Inactive 07/22/2016 [facility] Morphine 2 mg, 1 mL, Route: IVP, Drug form: INJ, Q5Min, Dosing Weight 83.182, kg, PRN Pain Score 4-6, Start date: 07/22/16 7:02:00 TECHNICAL REPORT WRITER, Duration: 5 doses or times, Stop date: 07/22/16 19:00:00 CSTNotes: (Same as:MORPhine Sulfate) Inactive 07/22/2016 [facility] Hydralazine 10 mg, 0.5 mL, Route: IVP, Drug form: INJ, Q20Min, Dosing Weight 83.182, kg, PRN Elevated BP, Start date: 07/22/16 7:02:00 TECHNICAL REPORT WRITER, Duration: 2 doses or times, Stop date: 07/22/16 19:00:00 CSTNotes: (Same as: Apresoline) Push over 5 minutes Inactive 07/22/2016 [facility] Labetalol 10 mg, 2 mL, Route: IVP, Drug form: INJ, Q5Min, Dosing Weight 83.182, kg, PRN Elevated BP, Start date: 07/22/16 7:02:00 TECHNICAL REPORT WRITER, Duration: 5 doses or times, Stop date: 07/22/16 19:00:00 CSTNotes: (Same as: Normodyne, Trandate) Push over 2 minutes Give bolus over 2-3 minutes. Inactive 07/22/2016 [facility] vancomycin + sodium chloride 0.9% INJ 250 mL 1,000 mg, Route: IVPB, PRE OP, Start date: 07/22/16 6:00:00 TECHNICAL REPORT WRITER, Duration: 12 hr, Stop date: 07/22/16 17:59:00 CSTNotes: TIME CRITICAL MEDICATION (Same As: Vancocin) Infusion rate 2001 mg: infuse over 2.5 hours MEDICATION WASTE Product Size: 1000 mg Product Wasted: ___ mg Inactive 07/22/2016 [facility] Lactated Ringers 1,000 mL 1,000 mL, Rate: 70 ml/hr, Infuse over: 14.3 hr, Route: IV, Dosing Weight 83.182 kg, Total Volume: 1,000, Start date: 07/22/16 6:00:00 TECHNICAL REPORT WRITER, Duration: 12 hr, Stop date: 07/22/16 17:59:00 TECHNICAL REPORT WRITER Inactive 07/22/2016 [facility] omeprazole 40 mg oral delayed release capsule 40 mg=1 cap, PO, Bedtime, # 90 cap, 0 Refill(s) Active 07/17/2016 [facility] Olopatadine hydrochloride 0.665 MG/ACTUAT Metered Dose Nasal [place] [PATANASE] 2 spray, NASAL, BID, # 30.5 gm, 0 Refill(s) Active 07/17/2016 [facility] tramadol hydrochloride 50 MG Oral Tablet 50 mg=1 tab, PO, Q4H, PRN Pain, # 60 tab, 0 Refill(s) Active 07/17/2016 [facility] mometasone furoate 0.05 MG/ACTUAT Metered Dose Nasal [place] [Nasonex] 2 spray, NASAL, Daily, PRN for allergy symptoms, # 17 gm, 0 Refill(s) Active 07/17/2016 [facility] rivaroxaban 20 MG Oral Tablet [Xarelto] 20 mg=1 tab, PO, QPM, # 30 tab, 3 Refill(s) No Longer Active 07/17/2016 [facility] phenazopyridine 200 mg oral tablet 200 mg=1 tab, PO, TID, PRN Dysuria, # 6 tab, 0 Refill(s) Active 07/17/2016 [facility] Cyclosporine 0.5 MG/ML Ophthalmic Suspension [Restasis] 1 drp, BOTH EYES, BID, # 30 mL, 0 Refill(s) Active 07/17/2016 [facility] simvastatin 10 mg oral tablet 10 mg=1 tab, PO, Bedtime, # 90 tab, 1 Refill(s) Active 07/17/2016 [facility] amLODIPine 2.5 mg oral tablet 2.5 mg=1 tab, PO, Daily, # 30 tab, 0 Refill(s) Active 07/17/2016 [facility] losartan 25 mg oral tablet 25 mg=1 tab, PO, Daily, # 30 tab, 1 Refill(s) Active 07/17/2016 [facility] Symbicort 80/4.5 inhalation aerosol with adapter 2 puff, INHALATION, BID, # 6.9 gm, 0 Refill(s) Active 07/17/2016 [facility] metoprolol 25 mg oral tablet, extended release 25 mg=1 tab, PO, BID, # 90 tab, 1 Refill(s) Active 07/17/2016 [facility] Albuterol 0.833 MG/ML / Ipratropium [place] 0.167 MG/ML Inhalant Solution 3 mL, INHALATION, Q6H, PRN Wheezing, # 30 ea, 1 Refill(s) Active 07/17/2016 [facility] Azelastine hydrochloride 0.137 MG/ACTUAT / Fluticasone propionate 0.05 MG/ACTUAT Metered Dose Nasal [place] 2 spray, NASAL, BID, # 23 gm, 1 Refill(s) Active 07/17/2016 [facility] lysine 500 mg oral tablet 1,000 mg=2 tab, PO, Daily, 0 Refill(s) Active 07/17/2016 [facility] temazepam 30 mg oral capsule 30 mg=1 cap, PO, Bedtime, PRN Sleep, # 14 cap, 0 Refill(s) Active 07/17/2016 [facility] levocetirizine 5 mg oral tablet 5 mg=1 tab, PO, Bedtime, PRN as needed for allergy symptoms, # 30 tab, 0 Refill(s) Active 07/17/2016 [facility] Demerol HCl 50 mg, Route: IM, ONCE, Start date: 01/17/12 18:39:00, Stop date: 01/17/12 18:39:00 IM No Longer Active Mark 01/17/2012 [facility] Demerol HCl 12.5 mg, Route: IVP, ONCE, Start date: 01/17/12 18:10:00, Stop date: 01/17/12 18:10:00 IVP No Longer Active Mark 01/17/2012 [facility] Demerol HCl 12.5 mg, Route: IVP, ONCE, Start date: 01/17/12 18:02:00, Stop date: 01/17/12 18:02:00 IVP No Longer Active Mark 01/17/2012 [facility] fentanyl 50 microgram, Route: IVP, ONCE, Start date: 01/17/12 17:29:00, Stop date: 01/17/12 17:29:00 IVP No Longer Active Mark 01/17/2012 [facility] fentanyl 50 microgram, Route: IVP, ONCE, Start date: 01/17/12 17:28:00, Stop date: 01/17/12 17:28:00 IVP No Longer Active Mark 01/17/2012 [facility] lidocaine 0.1 mL, Route: IV, Drug form: INJ, ONCALL, Start date: 01/17/12 6:00:00, Duration: 12 hr, Stop date: 01/17/12 17:59:00 IV No Longer Active Mark 01/17/2012 [facility] Lactated Ringers Injection IV 1,000 mL 1,000 mL, Rate: 100 ml/hr, Infuse over: 10 hr, Route: IV, Dosing Weight 71.364 kg, Total Volume: 1,000, Start date: 01/17/12 6:00:00, Duration: 12 hr, Stop date: 01/17/12 17:59:00 IV No Longer Active Mark 01/17/2012 [facility] vancomycin 1 gm, 250 mL, Route: IVPB, Drug form: INJ, ONCALL, Start date: 01/17/12 6:00:00, Duration: 1 doses or times IVPB No Longer Active Fen 01/17/2012 [facility] Allergies, Adverse Reactions, Alerts Substance Category Reaction Severity Reaction type Status Date Reported Comments Source codeine<sup>1, 2</sup> Assertion vomit Drug allergy Active 11/20/2011 Data migrated from [email or web address] on 10/03/15. Originally documented as CODEINE. Data migrated from [email or web address] on 09/13/15. Originally documented as CODEINE. [facility] Food Strawberries<sup>3</sup> Assertion hives Drug allergy Active 11/20/2011 Data migrated from [email or web address] on 09/13/15. Originally documented as STRAWBERRIES. [facility] nonsteroidal anti-inflammatory agents<sup>4</sup> Assertion Drug allergy Active 11/20/2011 Data migrated from [email or web address] on 03/06/15. Originally documented as NSAIDS. [facility] penicillins<sup>5</sup> Assertion hives Drug allergy Active 11/20/2011 Data migrated from [employer] on 03/06/15. Originally documented as PENICILLIN. [facility] sulfa drugs<sup>6</sup> Assertion skin disorder Drug allergy Active 11/20/2011 Data migrated from [employer] on 03/06/15. Originally documented as SULFA. [facility] penicillins<sup>1</sup> Assertion hives Drug allergy Active 11/20/2011 Data migrated from [employer] on 03/06/15. Originally documented as PENICILLIN. [facility] sulfa drugs<sup>2</sup> Assertion skin disorder Drug allergy Active 11/20/2011 Data migrated from [employer] on 03/06/15. Originally documented as SULFA. [facility] codeine<sup>3, 4</sup> Assertion vomit Drug allergy Active 11/20/2011 Data migrated from [employer] on 10/03/15. Originally documented as CODEINE. Data migrated from [employer] on 09/13/15. Originally documented as CODEINE. [facility] nonsteroidal anti-inflammatory agents<sup>5</sup> Assertion Drug allergy Active 11/20/2011 Data migrated from [employer] on 03/06/15. Originally documented as NSAIDS. [facility] Food Strawberries<sup>6</sup> Assertion hives Drug allergy Active 11/20/2011 Data migrated from [email or web address] on 09/13/15. Originally documented as STRAWBERRIES. [facility] codeine Assertion vomit Drug allergy Active [facility] Food Strawberries Assertion hives Drug allergy Active [facility] NSAIDs Assertion stomach Drug allergy Active [facility] penicillins Assertion hives Drug allergy Active [facility] sulfa drugs Assertion skin disorder Drug allergy Active [facility] Immunizations Immunization Date Given Site Status Last Updated Comments Source pneumococcal 13-valent vaccine 07/28/2016 Not Given [facility] Results Order Name Results Value Reference [...] should be multiplied by the estimated BMI. [facility] CHEM PANEL Calcium Lvl 8.5 8.5 - 10.5 08/14/2017 [facility] CHEM PANEL CO2 24 24 - 32 08/14/2017 [facility] CHEM PANEL Potassium Lvl 3.3 3.5 - 5.1 08/14/2017 [facility] CHEM PANEL Sodium Lvl 145 135 - 145 08/14/2017 [facility] CHEM PANEL Chloride Lvl 112 95 - 109 08/14/2017 [facility] CHEM PANEL Glucose Lvl 90 70 - 99 08/14/2017 [facility] CHEM PANEL Creatinine Lvl 0.80 0.50 - 1.40 08/14/2017 [facility] CHEM PANEL BUN 12 7 - 22 08/14/2017 [facility] CHEM PANEL AGAP 12.3 10.0 - 20.0 08/14/2017 [facility] HEMATOLOGY WBC 9.7 3.7 - 10.4 08/14/2017 [facility] HEMATOLOGY RDW 15.0 11.5 - 14.5 08/14/2017 [facility] HEMATOLOGY MPV 10.3 7.4 - 10.4 08/14/2017 [facility] HEMATOLOGY Platelet 145 133 - 450 08/14/2017 [facility] HEMATOLOGY RBC 3.60 4.20 - 5.40 08/14/2017 [facility] HEMATOLOGY Hgb 10.4 12.0 - 16.0 08/14/2017 [facility] HEMATOLOGY Hct 31.7 36.0 - 48.0 08/14/2017 [facility] MCH 28.9 27.0 - 31.0 08/14/2017 [facility] MCHC 32.8 32.0 - 36.0 08/14/2017 [facility] HEMATOLOGY MCV 88.0 80.0 - 98.0 08/14/2017 [facility] HEMATOLOGY Lymphocytes # 1.2 1.0 - 5.5 08/14/2017 [facility] HEMATOLOGY Eosinophils # 0.4 0.0 - 0.5 08/14/2017 [facility] HEMATOLOGY Monocytes # 0.8 0.0 - 0.8 08/14/2017 [facility] HEMATOLOGY Eosinophils 4.5 0.0 - 4.0 08/14/2017 [facility] HEMATOLOGY Segs-Bands # 7.2 1.5 - 8.1 08/14/2017 [facility] HEMATOLOGY Basophils 0.4 0.0 - 1.0 08/14/2017 [facility] HEMATOLOGY Monocytes 8.0 2.0 - 12.0 08/14/2017 [facility] HEMATOLOGY Segs 74.4 45.0 - 75.0 08/14/2017 [facility] HEMATOLOGY Lymphocytes 12.7 20.0 - 40.0 08/14/2017 [facility] CHEM PANEL Globulin 3.5 2.7 - 4.2 08/13/2017 [facility] CHEM PANEL A/G Ratio 0.7 0.7 - 1.6 08/13/2017 [facility] CHEM PANEL Bili Direct 0.1 0.0 - 0.3 08/13/2017 [facility] CHEM PANEL Bili Total 0.4 0.2 - 1.3 08/13/2017 [facility] CHEM PANEL Bili Indirect 0.3 0.0 - 1.0 08/13/2017 [facility] CHEM PANEL AST 21 0 - 37 08/13/2017 [facility] CHEM PANEL Alk Phos 54 39 - 136 08/13/2017 [facility] CHEM PANEL ALT 11 0 - 65 08/13/2017 [facility] CHEM PANEL Albumin Lvl 2.5 3.5 - 5.0 08/13/2017 [facility] CHEM PANEL Total Protein 6.0 6.4 - 8.4 08/13/2017 [facility] CHEM PANEL Lactic Acid Lvl 1.5 0.5 - 2.2 08/13/2017 [facility] CHEM PANEL eGFR 54 08/13/2017 Result [...] should be multiplied by the estimated BMI. [facility] CHEM PANEL BUN 17 7 - 22 08/13/2017 [facility] CHEM PANEL Glucose Lvl 87 70 - 99 08/13/2017 [facility] CHEM PANEL Creatinine Lvl 0.98 0.50 - 1.40 08/13/2017 [facility] CHEM PANEL Sodium Lvl 144 135 - 145 08/13/2017 [facility] CHEM PANEL Chloride Lvl 112 95 - 109 08/13/2017 [facility] CHEM PANEL Potassium Lvl 3.9 3.5 - 5.1 08/13/2017 [facility] CHEM PANEL CO2 24 24 - 32 08/13/2017 [facility] CHEM PANEL Calcium Lvl 8.3 8.5 - 10.5 08/13/2017 [facility] CHEM PANEL AGAP 11.9 10.0 - 20.0 08/13/2017 [facility] CHEM PANEL Magnesium Lvl 2.1 1.8 - 2.4 08/13/2017 [facility] HEMATOLOGY MCHC 32.5 32.0 - 36.0 08/13/2017 [facility] HEMATOLOGY RDW 15.3 11.5 - 14.5 08/13/2017 [facility] Hgb 10.6 12.0 - 16.0 08/13/2017 [facility] HEMATOLOGY Hct 32.6 36.0 - 48.0 08/13/2017 [facility] HEMATOLOGY Platelet 111 133 - 450 08/13/2017 [facility] HEMATOLOGY MPV 11.0 7.4 - 10.4 08/13/2017 [facility] HEMATOLOGY MCV 87.9 80.0 - 98.0 08/13/2017 [facility] HEMATOLOGY MCH 28.6 27.0 - 31.0 08/13/2017 [facility] HEMATOLOGY RBC 3.70 4.20 - 5.40 08/13/2017 [facility] WBC 10.9 3.7 - 10.4 08/13/2017 [facility] MOLECULAR DIAGNOSTIC Influenza A PCR Negative (08/12/17 5:08 PM) Negative 08/12/2017 [facility] MOLECULAR DIAGNOSTIC Influenza B PCR Negative (08/12/17 5:08 PM) Negative 08/12/2017 [facility] DIAGNOSTIC RSV PCR Negative (08/12/17 5:08 PM) Negative 08/12/2017 [facility] MOLECULAR DIAGNOSTIC Source Respiratory Panel PCR [employer]CH[employer]IC[employer] AND [employer] TECH Swab (08/12/17 5:08 PM) 08/12/2017 [facility] CHEM PANEL Lactic Acid Lvl 0.9 0.5 - 2.2 08/12/2017 [facility] CHEM PANEL Magnesium Lvl 1.8 1.8 - 2.4 08/12/2017 [facility] ELECTROLYTES eGFR 51 08/12/2017 Result Comment: [...] should be multiplied by the estimated BMI. [facility] CHEM PANEL Procalcitonin Lvl 0.41 0.00 - 0.10 08/12/2017 [facility] ELECTROLYTES Potassium Lvl 3.5 3.5 - 5.1 08/12/2017 [facility] ELECTROLYTES AGAP 13.5 10.0 - 20.0 08/12/2017 [facility] ELECTROLYTES CO2 23 24 - 32 08/12/2017 [facility] ELECTROLYTES Calcium Lvl 8.5 8.5 - 10.5 08/12/2017 [facility] ELECTROLYTES Glucose Lvl 103 70 - 99 08/12/2017 [facility] ELECTROLYTES BUN 17 7 - 22 08/12/2017 [facility] ELECTROLYTES Creatinine Lvl 1.02 0.50 - 1.40 08/12/2017 [facility] ELECTROLYTES Sodium Lvl 143 135 - 145 08/12/2017 [facility] ELECTROLYTES Chloride Lvl 110 95 - 109 08/12/2017 [facility] MCH 28.7 27.0 - 31.0 08/12/2017 [facility] HEMATOLOGY Hct 36.5 36.0 - 48.0 08/12/2017 [facility] HEMATOLOGY MCV 87.7 80.0 - 98.0 08/12/2017 [facility] HEMATOLOGY WBC 18.6 3.7 - 10.4 08/12/2017 [facility] RBC 4.16 4.20 - 5.40 08/12/2017 [facility] Hgb 11.9 12.0 - 16.0 08/12/2017 [facility] MCHC 32.7 32.0 - 36.0 08/12/2017 [facility] HEMATOLOGY RDW 15.1 11.5 - 14.5 08/12/2017 [facility] HEMATOLOGY Platelet 132 133 - 450 08/12/2017 [facility] MPV 10.7 7.4 - 10.4 08/12/2017 [facility] HEMATOLOGY Basophils 0.3 0.0 - 1.0 08/12/2017 [facility] HEMATOLOGY Segs-Bands # 14.9 1.5 - 8.1 08/12/2017 [facility] HEMATOLOGY Monocytes # 1.6 0.0 - 0.8 08/12/2017 [facility] HEMATOLOGY Basophils # 0.1 0.0 - 0.2 08/12/2017 [facility] HEMATOLOGY Lymphocytes # 2.0 1.0 - 5.5 08/12/2017 [facility] HEMATOLOGY Lymphocytes 10.9 20.0 - 40.0 08/12/2017 [facility] HEMATOLOGY Monocytes 8.8 2.0 - 12.0 08/12/2017 [facility] Segs 80.0 45.0 - 75.0 08/12/2017 [facility] CHEM PANEL Lactic Acid Lvl 0.9 0.5 - 2.2 08/12/2017 [facility] BACTERIAL - SEROLOGY Source Strep Urine *NA* (08/11/17 8:45 PM) 08/12/2017 [facility] BACTERIAL - SEROLOGY Strep pneumoniae Ag Negative (08/11/17 8:45 PM) Negative 08/12/2017 [facility] URINE AND STOOL UA Urobilinogen <=1.0 mg/dL 0.1 - 1.0 08/12/2017 [facility] URINE AND STOOL UA Sq Epi None Seen 08/12/2017 [facility] URINE AND STOOL UA Ketones Trace mg/dL Negative mg/dL 08/12/2017 [facility] URINE AND STOOL UA Mucus Moderate [...] Yellow *NA* (08/11/17 8:45 PM) Yellow 08/12/2017 [facility] URINE AND STOOL UA pH 5.0 5.0 - 8.0 08/12/2017 [facility] CARDIAC ENZYMES CK MB 1.9 0.5 - 3.6 08/12/2017 [facility] CARDIAC ENZYMES Total CK 570 12 - 191 08/12/2017 [facility] CARDIAC ENZYMES BNP 231 <=100 pg/mL 08/12/2017 [facility] CARDIAC ENZYMES Troponin-I 0.03 0.00 - 0.40 08/12/2017 [facility] CARDIAC ENZYMES CK MB Index 0.3 0.0 - 2.5 08/12/2017 [facility] CHEM PANEL AST 41 0 - 37 08/12/2017 [facility] CHEM PANEL ALT 11 0 - 65 08/12/2017 [facility] CHEM PANEL Albumin Lvl 3.4 3.5 - 5.0 08/12/2017 [facility] CHEM PANEL Total Protein 7.3 6.4 - 8.4 08/12/2017 [facility] CHEM PANEL B/C Ratio 13 6 - 25 08/12/2017 [facility] CHEM PANEL Bili Total 0.8 0.2 - 1.3 08/12/2017 [facility] CHEM PANEL Alk Phos 63 39 - 136 08/12/2017 [facility] CHEM PANEL A/G Ratio 0.9 0.7 - 1.6 08/12/2017 [facility] CHEM PANEL Globulin 3.9 2.7 - 4.2 08/12/2017 [facility] CHEM PANEL Lipase Lvl 40 73 - 393 08/12/2017 [facility] CHEM PANEL Magnesium Lvl 2.1 1.8 - 2.4 08/12/2017 [facility] HEMATOLOGY PT 21.4 12.0 - 14.7 08/12/2017 [facility] HEMATOLOGY INR 1.84 0.85 - 1.17 08/12/2017 [facility] HEMATOLOGY PTT 45.1 22.9 - 35.8 08/12/2017 [facility] HEMATOLOGY Basophils 0.3 0.0 - 1.0 08/12/2017 [facility] HEMATOLOGY Monocytes 9.3 2.0 - 12.0 08/12/2017 [facility] HEMATOLOGY Segs 80.7 45.0 - 75.0 08/12/2017 [facility] HEMATOLOGY Segs-Bands # 18.2 1.5 - 8.1 08/12/2017 [facility] HEMATOLOGY Lymphocytes 9.7 20.0 - 40.0 08/12/2017 [facility] HEMATOLOGY Basophils # 0.1 0.0 - 0.2 08/12/2017 [facility] HEMATOLOGY Lymphocytes # 2.2 1.0 - 5.5 08/12/2017 [facility] HEMATOLOGY Monocytes # 2.1 0.0 - 0.8 08/12/2017 [facility] CHEM PANEL eGFR 39 07/28/2016 Result [...] should be multiplied by the estimated BMI. [facility] CHEM PANEL Calcium Lvl 8.4 8.5 - 10.5 07/28/2016 [facility] CHEM PANEL CO2 26 24 - 32 07/28/2016 [facility] CHEM PANEL Potassium Lvl 3.4 3.5 - 5.1 07/28/2016 [facility] CHEM PANEL Chloride Lvl 103 95 - 109 07/28/2016 [facility] CHEM PANEL Creatinine Lvl 1.27 0.50 - 1.40 07/28/2016 [facility] CHEM PANEL BUN 22 7 - 22 07/28/2016 [facility] CHEM PANEL Glucose Lvl 97 70 - 99 07/28/2016 [facility] CHEM PANEL Sodium Lvl 140 135 - 145 07/28/2016 [facility] CHEM PANEL AGAP 14.4 10.0 - 20.0 07/28/2016 [facility] CHEM PANEL Magnesium Lvl 2.5 1.8 - 2.4 07/28/2016 [facility] CHEM PANEL Phosphorus 3.7 2.5 - 4.5 07/28/2016 [facility] HEMATOLOGY Platelet 201 133 - 450 07/28/2016 [facility] HEMATOLOGY MCH 26.2 27.0 - 31.0 07/28/2016 [facility] HEMATOLOGY RDW 15.9 11.5 - 14.5 07/28/2016 [facility] HEMATOLOGY MCHC 32.6 32.0 - 36.0 07/28/2016 [facility] HEMATOLOGY MPV 9.6 7.4 - 10.4 07/28/2016 [facility] HEMATOLOGY Hgb 10.5 12.0 - 16.0 07/28/2016 [facility] HEMATOLOGY RBC 4.03 4.20 - 5.40 07/28/2016 [facility] HEMATOLOGY WBC 9.0 3.7 - 10.4 07/28/2016 [facility] HEMATOLOGY MCV 80.2 80.0 - 98.0 07/28/2016 [facility] HEMATOLOGY Hct 32.3 36.0 - 48.0 07/28/2016 [facility] HEMATOLOGY Segs 69.2 45.0 - 75.0 07/28/2016 [facility] HEMATOLOGY Monocytes 10.6 2.0 - 12.0 07/28/2016 [facility] HEMATOLOGY Lymphocytes 14.2 20.0 - 40.0 07/28/2016 [facility] HEMATOLOGY Eosinophils 5.2 0.0 - 4.0 07/28/2016 [facility] HEMATOLOGY Basophils 0.8 0.0 - 1.0 07/28/2016 [facility] HEMATOLOGY Segs-Bands # 6.2 1.5 - 8.1 07/28/2016 [facility] HEMATOLOGY Lymphocytes # 1.3 1.0 - 5.5 07/28/2016 [facility] HEMATOLOGY Monocytes # 1.0 0.0 - 0.8 07/28/2016 [facility] HEMATOLOGY Eosinophils # 0.5 0.0 - 0.5 07/28/2016 [facility] HEMATOLOGY Basophils # 0.1 0.0 - 0.2 07/28/2016 [facility] RAPID Grp A Strep Scr Negative (07/26/16 3:35 AM) Negative 07/26/2016 [facility] CHEM PANEL Lactic Acid Lvl 1.4 0.5 - 2.2 07/26/2016 [facility] CHEM PANEL Phosphorus 3.0 2.5 - 4.5 07/26/2016 [facility] CHEM PANEL A/G Ratio 0.8 0.7 - 1.6 07/26/2016 [facility] CHEM PANEL Globulin 3.7 2.7 - 4.2 07/26/2016 [facility] CHEM PANEL B/C Ratio 10 6 - 25 07/26/2016 [facility] CHEM PANEL AGAP 14.7 10.0 - 20.0 07/26/2016 [facility] CHEM PANEL CO2 23 24 - 32 07/26/2016 [facility] CHEM PANEL Chloride Lvl 103 95 - 109 07/26/2016 [facility] CHEM PANEL Total Protein 6.7 6.4 - 8.4 07/26/2016 [facility] CHEM PANEL Calcium Lvl 8.3 8.5 - 10.5 07/26/2016 [facility] CHEM PANEL eGFR 63 07/26/2016 Result Comment: [...] should be multiplied by the estimated BMI. [facility] CHEM PANEL Albumin Lvl 3.0 3.5 - 5.0 07/26/2016 [facility] CHEM PANEL AST 17 0 - 37 07/26/2016 [facility] CHEM PANEL Bili Total 1.1 0.2 - 1.3 07/26/2016 [facility] CHEM PANEL Alk Phos 86 39 - 136 07/26/2016 [facility] CHEM PANEL ALT 13 0 - 65 07/26/2016 [facility] CHEM PANEL BUN 9 7 - 22 07/26/2016 [facility] CHEM PANEL Glucose Lvl 108 70 - 99 07/26/2016 [facility] CHEM PANEL Potassium Lvl 3.7 3.5 - 5.1 07/26/2016 [facility] CHEM PANEL Sodium Lvl 137 135 - 145 07/26/2016 [facility] CHEM PANEL Creatinine Lvl 0.86 0.50 - 1.40 07/26/2016 [facility] CHEM PANEL Magnesium Lvl 1.7 1.8 - 2.4 07/26/2016 [facility] HEMATOLOGY Segs 76.8 45.0 - 75.0 07/26/2016 [facility] HEMATOLOGY Lymphocytes 10.5 20.0 - 40.0 07/26/2016 [facility] HEMATOLOGY Basophils 0.5 0.0 - 1.0 07/26/2016 [facility] HEMATOLOGY Segs-Bands # 12.9 1.5 - 8.1 07/26/2016 [facility] HEMATOLOGY Monocytes 12.1 2.0 - 12.0 07/26/2016 [facility] HEMATOLOGY Eosinophils 0.1 0.0 - 4.0 07/26/2016 [facility] HEMATOLOGY Lymphocytes # 1.8 1.0 - 5.5 07/26/2016 [facility] HEMATOLOGY Basophils # 0.1 0.0 - 0.2 07/26/2016 [facility] HEMATOLOGY Monocytes # 2.0 0.0 - 0.8 07/26/2016 [facility] HEMATOLOGY Hct 33.1 36.0 - 48.0 07/26/2016 [facility] HEMATOLOGY WBC 16.8 3.7 - 10.4 07/26/2016 [facility] HEMATOLOGY Hgb 10.7 12.0 - 16.0 07/26/2016 [facility] HEMATOLOGY MCH 26.0 27.0 - 31.0 07/26/2016 [facility] HEMATOLOGY RDW 15.3 11.5 - 14.5 07/26/2016 [facility] HEMATOLOGY MCV 80.4 80.0 - 98.0 07/26/2016 [facility] HEMATOLOGY MCHC 32.3 32.0 - 36.0 07/26/2016 [facility] HEMATOLOGY Platelet 180 133 - 450 07/26/2016 [facility] HEMATOLOGY MPV 9.1 7.4 - 10.4 07/26/2016 [facility] HEMATOLOGY RBC 4.12 4.20 - 5.40 07/26/2016 [facility] CHEM PANEL Lactic Acid Lvl 2.3 0.5 - 2.2 07/26/2016 [facility] URINE AND STOOL UA Sq Epi Few /LPF Few /LPF 07/26/2016 [facility] URINE AND STOOL UA Bacteria Few /HPF None Seen /HPF 07/26/2016 [facility] URINE AND STOOL UA RBC 0-2 /HPF 0 - 2 07/26/2016 [facility] URINE AND STOOL UA WBC 3-5 /HPF None Seen /HPF 07/26/2016 [facility] URINE AND STOOL UA Leuk Est Negative (07/25/16 10:52 PM) Negative 07/26/2016 [facility] URINE AND STOOL UA Nitrite Negative (07/25/16 10:52 PM) Negative 07/26/2016 [facility] URINE AND STOOL UA Urobilinogen 1.0 0.1 - 1.0 07/26/2016 [facility] URINE AND STOOL UA Color Yellow *NA* (07/25/16 10:52 PM) Yellow 07/26/2016 [facility] URINE AND STOOL UA Turbidity Slight Cloudy (07/25/16 10:52 PM) Clear 07/26/2016 [facility] URINE AND STOOL UA Spec Grav 1.015 <=1.030 07/26/2016 [facility] URINE AND STOOL UA Glucose Negative (07/25/16 10:52 PM) Negative 07/26/2016 [facility] URINE AND STOOL UA pH 5.5 5.0 - 8.0 07/26/2016 [facility] URINE AND STOOL UA Protein 30 mg/dL Negative mg/dL 07/26/2016 [facility] URINE AND STOOL UA Bili Negative *NA* (07/25/16 10:52 PM) Negative 07/26/2016 [facility] URINE AND STOOL UA Ketones 15 mg/dL Negative mg/dL 07/26/2016 [facility] URINE AND STOOL UA Blood Moderate *ABN* (07/25/16 10:52 PM) Negative 07/26/2016 [facility] CARDIAC ENZYMES Troponin-I 0.02 0.00 - 0.40 07/26/2016 [facility] CHEM PANEL Procalcitonin Lvl 0.14 0.00 - 0.10 07/26/2016 [facility] CHEM PANEL Lactic Acid Lvl 2.1 0.5 - 2.2 07/26/2016 [facility] HEMATOLOGY PTT 39.3 22.9 - 35.8 07/26/2016 [facility] HEMATOLOGY INR 1.42 0.85 - 1.17 07/26/2016 [facility] HEMATOLOGY PT 17.6 12.0 - 14.7 07/26/2016 [facility] CARDIAC ENZYMES Troponin-I <0.02 0.00 - 0.40 07/25/2016 [facility] CHEM PANEL eGFR 57 07/25/2016 Result Comment: [...] should be multiplied by the estimated BMI. [facility] CHEM PANEL Creatinine Lvl 0.94 0.50 - 1.40 07/25/2016 [facility] CHEM PANEL Potassium Lvl 3.8 3.5 - 5.1 07/25/2016 [facility] CHEM PANEL Sodium Lvl 138 135 - 145 07/25/2016 [facility] CHEM PANEL BUN 10 7 - 22 07/25/2016 [facility] CHEM PANEL Chloride Lvl 99 95 - 109 07/25/2016 [facility] CHEM PANEL Glucose Lvl 123 70 - 99 07/25/2016 [facility] CHEM PANEL CO2 24 24 - 32 07/25/2016 [facility] CHEM PANEL Calcium Lvl 8.8 8.5 - 10.5 07/25/2016 [facility] CHEM PANEL AGAP 18.8 10.0 - 20.0 07/25/2016 [facility] HEMATOLOGY Lymphocytes # 1.0 1.0 - 5.5 07/25/2016 [facility] HEMATOLOGY Monocytes # 1.8 0.0 - 0.8 07/25/2016 [facility] HEMATOLOGY Segs-Bands # 15.3 1.5 - 8.1 07/25/2016 [facility] HEMATOLOGY Monocytes 9.9 2.0 - 12.0 07/25/2016 [facility] HEMATOLOGY Basophils 0.5 0.0 - 1.0 07/25/2016 [facility] HEMATOLOGY Segs 84.0 45.0 - 75.0 07/25/2016 [facility] HEMATOLOGY Lymphocytes 5.6 20.0 - 40.0 07/25/2016 [facility] HEMATOLOGY Basophils # 0.1 0.0 - 0.2 07/25/2016 [facility] HEMATOLOGY PTT 38.3 22.9 - 35.8 07/25/2016 [facility] HEMATOLOGY INR 1.42 0.85 - 1.17 07/25/2016 [facility] HEMATOLOGY PT 17.6 12.0 - 14.7 07/25/2016 [facility] HEMATOLOGY MCHC 32.1 32.0 - 36.0 07/25/2016 [facility] HEMATOLOGY MCH 25.8 27.0 - 31.0 07/25/2016 [facility] HEMATOLOGY MCV 80.1 80.0 - 98.0 07/25/2016 [facility] HEMATOLOGY RBC 4.58 4.20 - 5.40 07/25/2016 [facility] HEMATOLOGY WBC 18.2 3.7 - 10.4 07/25/2016 [facility] HEMATOLOGY MPV 9.7 7.4 - 10.4 07/25/2016 [facility] HEMATOLOGY Platelet 181 133 - 450 07/25/2016 [facility] HEMATOLOGY RDW 15.6 11.5 - 14.5 07/25/2016 [facility] HEMATOLOGY Hct 36.7 36.0 - 48.0 07/25/2016 [facility] HEMATOLOGY Hgb 11.8 12.0 - 16.0 07/25/2016 [facility] BLOOD BANK RESULTS Antibody Scrn Negative (07/17/16 3:08 PM) 07/17/2016 [facility] BLOOD BANK RESULTS ABO/Rh A POS 07/17/2016 [facility] CHEM PANEL Calcium Lvl 9.0 8.5 - 10.5 07/17/2016 [facility] CHEM PANEL Chloride Lvl 106 95 - 109 07/17/2016 [facility] CHEM PANEL CO2 27 24 - 32 07/17/2016 [facility] CHEM PANEL eGFR 52 07/17/2016 Result [...] should be multiplied by the estimated BMI. [facility] CHEM PANEL Sodium Lvl 139 135 - 145 07/17/2016 [facility] CHEM PANEL Potassium Lvl 4.5 3.5 - 5.1 07/17/2016 [facility] CHEM PANEL Creatinine Lvl 1.01 0.50 - 1.40 07/17/2016 [facility] CHEM PANEL Glucose Lvl 88 70 - 99 07/17/2016 [facility] CHEM PANEL BUN 11 7 - 22 07/17/2016 [facility] CHEM PANEL AGAP 10.5 10.0 - 20.0 07/17/2016 [facility] HEMATOLOGY PTT 33.4 22.9 - 35.8 07/17/2016 [facility] HEMATOLOGY PT 14.2 12.0 - 14.7 07/17/2016 [facility] HEMATOLOGY INR 1.08 0.85 - 1.17 07/17/2016 [facility] HEMATOLOGY Eosinophils # 0.3 0.0 - 0.5 07/17/2016 [facility] HEMATOLOGY Basophils # 0.1 0.0 - 0.2 07/17/2016 [facility] HEMATOLOGY Segs 55.3 45.0 - 75.0 07/17/2016 [facility] HEMATOLOGY Segs-Bands # 4.0 1.5 - 8.1 07/17/2016 [facility] HEMATOLOGY Monocytes # 0.8 0.0 - 0.8 07/17/2016 [facility] HEMATOLOGY Lymphocytes 29.3 20.0 - 40.0 07/17/2016 [facility] HEMATOLOGY Eosinophils 3.9 0.0 - 4.0 07/17/2016 [facility] HEMATOLOGY Monocytes 10.5 2.0 - 12.0 07/17/2016 [facility] HEMATOLOGY Lymphocytes # 2.1 1.0 - 5.5 07/17/2016 [facility] HEMATOLOGY Basophils 1.0 0.0 - 1.0 07/17/2016 [facility] HEMATOLOGY MCHC 32.0 32.0 - 36.0 07/17/2016 [facility] HEMATOLOGY MPV 9.6 7.4 - 10.4 07/17/2016 [facility] HEMATOLOGY RDW 15.1 11.5 - 14.5 07/17/2016 [facility] HEMATOLOGY MCH 25.9 27.0 - 31.0 07/17/2016 [facility] HEMATOLOGY Platelet 192 133 - 450 07/17/2016 [facility] HEMATOLOGY MCV 81.0 80.0 - 98.0 07/17/2016 [facility] HEMATOLOGY Hct 39.6 36.0 - 48.0 07/17/2016 [facility] HEMATOLOGY Hgb 12.7 12.0 - 16.0 07/17/2016 [facility] HEMATOLOGY RBC 4.89 4.20 - 5.40 07/17/2016 [facility] HEMATOLOGY WBC 7.3 3.7 - 10.4 07/17/2016 [facility] URINE AND STOOL Micro? Not Indicated *NA* (07/17/16 3:08 PM) 07/17/2016 [facility] URINE AND STOOL UA Nitrite Negative (07/17/16 3:08 PM) Negative 07/17/2016 [facility] URINE AND STOOL UA Glucose Negative mg/dL Negative mg/dL 07/17/2016 [facility] URINE AND STOOL UA Blood Negative (07/17/16 3:08 PM) Negative 07/17/2016 [facility] URINE AND STOOL UA Ketones Negative mg/dL Negative mg/dL 07/17/2016 [facility] URINE AND STOOL UA Bili Negative *NA* (07/17/16 3:08 PM) Negative 07/17/2016 [facility] URINE AND STOOL UA Leuk Est Negative (07/17/16 3:08 PM) Negative 07/17/2016 [facility] URINE AND STOOL UA Protein Negative mg/dL Negative mg/dL 07/17/2016 [facility] URINE AND STOOL UA Urobilinogen 0.2 0.1 - 1.0 07/17/2016 [facility] URINE AND STOOL UA Color Yellow *NA* (07/17/16 3:08 PM) Yellow 07/17/2016 [facility] URINE AND STOOL UA pH 6.0 5.0 - 8.0 07/17/2016 [facility] URINE AND STOOL UA Turbidity Clear (07/17/16 3:08 PM) Clear 07/17/2016 [facility] URINE AND STOOL UA Spec Grav 1.010 <=1.030 07/17/2016 [facility] BLOOD BANK RESULTS ABO/Rh A POS 01/16/2012 Unknown [facility] BLOOD BANK RESULTS Antibody Scrn Negative (01/16/2012 11:55:00) 01/16/2012 Normal [facility] CHEMISTRY Calcium Lvl 9.4 8.5 - 10.5 01/16/2012 Normal [facility] CHEMISTRY CO2 27 24 - 32 01/16/2012 Normal [facility] CHEMISTRY Creatinine Lvl 1.2 0.5 - 1.4 01/16/2012 Normal [facility] CHEMISTRY Chloride Lvl 104 95 - 109 01/16/2012 Normal [facility] CHEMISTRY Glucose Lvl 80 70 - 99 01/16/2012 Normal <sup>1</sup>Interpretive Data: Adult reference range values reflect the clinical guidelines
of the [place] [employer]. [facility] CHEMISTRY BUN 16 7 - 22 01/16/2012 Normal [facility] CHEMISTRY Sodium Lvl 140 135 - 145 01/16/2012 Normal [facility] CHEMISTRY Potassium Lvl 4.9 3.5 - 5.1 01/16/2012 Normal [facility] CHEMISTRY AGAP 13.9 10.0 - 20.0 01/16/2012 Normal [facility] HEMATOLOGY Basophils 0.7 0.0 - 1.0 01/16/2012 Normal [facility] HEMATOLOGY Eosinophils # 0.2 0.0 - 0.5 01/16/2012 Normal [facility] HEMATOLOGY Basophils # 0.0 0.0 - 0.2 01/16/2012 Normal [facility] HEMATOLOGY Lymphocytes # 1.9 1.0 - 5.5 01/16/2012 Normal [facility] HEMATOLOGY Monocytes # 0.6 0.0 - 0.8 01/16/2012 Normal [facility] HEMATOLOGY Segs-Bands # 3.3 1.5 - 8.1 01/16/2012 Normal [facility] HEMATOLOGY Lymphocytes 31.1 20.0 - 40.0 01/16/2012 Normal [facility] HEMATOLOGY Segs 54.6 45.0 - 75.0 01/16/2012 Normal [facility] HEMATOLOGY Monocytes 10.1 2.0 - 12.0 01/16/2012 Normal [facility] HEMATOLOGY Eosinophils 3.5 0.0 - 4.0 01/16/2012 Normal [facility] HEMATOLOGY PTT 33.3 22.9 - 35.8 01/16/2012 Normal <sup>3</sup>Interpretive Data: Heparin Therapeutic Range: 57 - 92 Seconds [facility] HEMATOLOGY PT 13.5 12.0 - 14.7 01/16/2012 Normal [facility] HEMATOLOGY INR 1.03 0.85 - 1.17 01/16/2012 Normal <sup>2</sup>Interpretive Data: RECOMMENDED RANGES FOR PROTIME INR:
2.0-3.0 for most medical and surgical thromboembolic states.
2.5-3.5 for artificial heart valves and recurrent embolism.

INR SHOULD BE USED ONLY FOR PATIENTS ON STABLE ANTICOAGULANT THERAPY. [facility] HEMATOLOGY Platelet 170 133 - 450 01/16/2012 Normal [facility] HEMATOLOGY RDW 13.3 11.5 - 14.5 01/16/2012 Normal [facility] HEMATOLOGY MPV 10.2 7.4 - 10.4 01/16/2012 Normal [facility] HEMATOLOGY MCV 93.2 81.0 - 99.0 01/16/2012 Normal [facility] HEMATOLOGY MCH 31.0 27.0 - 31.0 01/16/2012 Normal [facility] HEMATOLOGY MCHC 33.3 32.0 - 36.0 01/16/2012 Normal [facility] HEMATOLOGY Hct 41.5 36.0 - 48.0 01/16/2012 Normal [facility] HEMATOLOGY RBC 4.45 4.20 - 5.40 01/16/2012 Normal [facility] HEMATOLOGY WBC 6.0 3.7 - 10.4 01/16/2012 Normal [facility] HEMATOLOGY Hgb 13.8 12.0 - 16.0 01/16/2012 Normal [facility] URINALYSIS Micro? Not Indicated *NA* (01/16/2012 11:55:00) 01/16/2012 NA [facility] URINALYSIS UA Glucose Negative mg/dL (01/16/2012 11:55:00) Negative 01/16/2012 Normal [facility] URINALYSIS UA Ketones Negative mg/dL *NA* (01/16/2012 11:55:00) Negative 01/16/2012 NA [facility] URINALYSIS UA Blood Negative (01/16/2012 11:55:00) Negative 01/16/2012 Normal [facility] URINALYSIS UA Protein Negative mg/dL (01/16/2012 11:55:00) Negative 01/16/2012 Normal [facility] URINALYSIS UA Leuk Est Negative (01/16/2012 11:55:00) Negative 01/16/2012 Normal [facility] URINALYSIS UA Nitrite Negative (01/16/2012 11:55:00) Negative 01/16/2012 Normal [facility] URINALYSIS UA Urobilinogen 0.2 0.1 - 1.0 01/16/2012 Normal [facility] URINALYSIS UA Bili Negative *NA* (01/16/2012 11:55:00) Negative 01/16/2012 NA [facility] URINALYSIS UA Turbidity Clear (01/16/2012 11:55:00) Clear 01/16/2012 Normal [facility] URINALYSIS UA pH 6.0 5.0 - 8.0 01/16/2012 Normal [facility] URINALYSIS UA Spec Grav 1.015 <=1.030 01/16/2012 Normal [facility] URINALYSIS UA Color Yellow *NA* (01/16/2012 11:55:00) Yellow 01/16/2012 NA [facility] Pathology Reports No Data Provided for [...] pelvis. 2. Degenerative changes as above. SL: [id number] 08/14/2017 [facility] Chest/Abdomen/Pelvis w IV contrast CT Clinical [...] Please correlate with labs SL: [id number] 08/11/2017 [facility] Shoulder series DX Exam: Right Shoulder [...] opacities with small right pleural effusion. SL: [id number] 08/11/2017 [facility] Pelvis AP DX Clinical Indication: - [...] No fracture or dislocation SL: [id number] 08/11/2017 [facility] Spine lumbar 2 or 3 views DX Patient Name: SELMA EVERETT : 1935; Age: 82 years y/o Female MR: [id number] Study: Spine lumbar 2 or 3 views DX 08/11/2017 7:46 PM TECHNICAL REPORT WRITER Ordering Physician: Saulo Wild Comparison: None Clinical [...] noted at these levels. DINORA: BRANDYN 08/11/2017 [facility] Chest 1view DX Clinical Indication: Chest [...] Small left pleural effusion. DINORA: MOSES 08/11/2017 [facility] Brain wo contrast CT Clinical Indication: [...] a chronic full-thickness rotator cuff tear. 07/27/2016 [facility] Abdomen Soft Tissue US EXAM: US ABDOMEN SOFT TISSUES DATE: 07/26/2016 12:22 AM TECHNICAL REPORT WRITER INDICATION: Flank Pain ADDITIONAL INFORMATION: Recurrent surgeries [...] lower back left sided subcutaneous abscess. 07/26/2016 [facility] Chest Pulmonary Embolism CTA EXAM: CTA CHEST WITH CONTRAST. Pulmonary Embolus Protocol. DATE: 07/25/2016 5:45 PM TECHNICAL REPORT WRITER INDICATION: Chest pain. Evaluate for Pulmonary Embolus. [...] obtained for further evaluation if indicated. 07/25/2016 [facility] Chest 2 views DX EXAM: XR CHEST 2 VIEWS DATE: 07/25/2016 4:47 PM TECHNICAL REPORT WRITER INDICATION: Chest pain COMPARISON: Chest radiograph dated [...] breast tissue. Recommend correlation with mammography. 07/25/2016 [facility] Gallbladder scan HIDA wo meds [place] PROCEDURE: [...] articles frequently cited. J Nucl Med. 2002; [id number]:7987-0465 J Nucl Med. 2003; 44:0077-7156 SL: 13 03/31/2014 [facility] Gallbladder US Exam: Gallbladder ultrasound Reason for [...] Comments Source Systolic (mm Hg) 143 08/16/2017 [facility] Diastolic (mm Hg) 91 08/16/2017 [facility] Heart Rate 85 08/16/2017 [facility] Temperature Oral (F) 96.0 F 08/16/2017 [facility] Respitory Rate 16 08/16/2017 [facility] Systolic (mm Hg) 113 08/16/2017 [facility] Diastolic (mm Hg) 72 08/16/2017 [facility] Respitory Rate 18 08/16/2017 [facility] Temperature Oral (F) 98.0 F 08/16/2017 [facility] Heart Rate 70 08/16/2017 [facility] Heart Rate 75 08/16/2017 [facility] Systolic (mm Hg) 127 08/16/2017 [facility] Diastolic (mm Hg) 64 08/16/2017 [facility] Temperature Oral (F) 97.8 F 08/16/2017 [facility] Respitory Rate 16 08/16/2017 [facility] BMI Calculated 27.57 08/12/2017 [facility] Weight 72.864 08/12/2017 [facility] Height 162.56 cm 08/12/2017 [facility] BMI Calculated 25.8 08/12/2017 [facility] Weight 68.182 08/12/2017 [facility] Height 162.56 cm 08/12/2017 [facility] Systolic (mm Hg) 121 07/28/2016 [facility] Diastolic (mm Hg) 70 07/28/2016 [facility] Respitory Rate 22 07/28/2016 [facility] Systolic (mm Hg) 123 07/28/2016 [facility] Diastolic (mm Hg) 71 07/28/2016 [facility] Respitory Rate 24 07/28/2016 [facility] Temperature Oral (F) 97.9 F 07/28/2016 [facility] Respitory Rate 35 07/28/2016 [facility] Systolic (mm Hg) 122 07/28/2016 [facility] Diastolic (mm Hg) 62 07/28/2016 [facility] Temperature Oral (F) 97.3 F 07/28/2016 [facility] Temperature Oral (F) 97.9 F 07/28/2016 [facility] Weight 82.545 07/27/2016 [facility] BMI Calculated 31.24 07/27/2016 [facility] Height 162.56 cm 07/27/2016 [facility] Weight 82.727 07/25/2016 [facility] Heart Rate 59 07/25/2016 [facility] Systolic (mm Hg) 109 07/22/2016 [facility] Diastolic (mm Hg) 55 07/22/2016 [facility] Respitory Rate 16 07/22/2016 [facility] Systolic (mm Hg) 129 07/22/2016 [facility] Diastolic (mm Hg) 61 07/22/2016 [facility] Respitory Rate 16 07/22/2016 [facility] Respitory Rate 12 07/22/2016 [facility] Systolic (mm Hg) 118 07/22/2016 [facility] Diastolic (mm Hg) 59 07/22/2016 [facility] Heart Rate 73 07/17/2016 [facility] BMI Calculated 31.48 07/17/2016 [facility] Height 162.56 cm 07/17/2016 [facility] Weight 83.182 07/17/2016 [facility] Heart Rate 69 01/18/2012 [facility] Respitory Rate 16 01/18/2012 [facility] Diastolic (mm Hg) 60 01/18/2012 [facility] Systolic (mm Hg) 110 01/18/2012 [facility] Heart Rate 70 01/17/2012 [facility] Respitory Rate 20 01/17/2012 [facility] Systolic (mm Hg) 126 01/17/2012 [facility] Diastolic (mm Hg) 64 01/17/2012 [facility] Diastolic (mm Hg) 67 01/17/2012 [facility] Systolic (mm Hg) 130 01/17/2012 [facility] Respitory Rate 18 01/17/2012 [facility] Heart Rate 69 01/17/2012 [facility] Weight 71.364 01/16/2012 [facility] Height 160.02 cm 01/16/2012 [facility] Encounters Location Location Details Encounter Type Encounter Number Reason For Visit Attending Provider ADM Date DC Date Status Source Not Sent [id number] 724.2, 338.29 ROGER LING JR 01/17/2012 01/17/2012 Active [facility] [place] [facility] [id number] Sergey Law 02/15/2014 02/16/2014 [facility] Outpatient [id number] Sergey Law 03/31/2014 04/01/2014 [facility] Outpatient [id number] ROGER LING JR 09/20/2015 Active [facility] Outpatient [id number] ROGER LING JR 10/11/2015 Active [facility] Outpatient [id number] ROGER LING JR 05/15/2016 [facility] Outpatient [id number] ROGER LING JR 06/19/2016 [facility] Outpatient [id number] ROGER LING JR 07/22/2016 [facility] [id number] Roger Ling Jr 07/22/2016 07/22/2016 [facility] Inpatient [id number] Alton Cameron 07/25/2016 07/28/2016 [facility] Outpatient [id number] MONICA SETHI 08/06/2016 [facility] Inpatient [id number] Leonard Freitas 08/12/2017 08/16/2017 [facility] Procedures Procedure Code Date Perfomer Comments Source Abdominal hysterectomy [id number] [facility] Appendectomy [id number] [facility] Back fusion [id number] [facility] Carpal tunnel release [id number] [facility] Cervical laminectomy 879918305 [facility] Right repair of rotator cuff [id number] [facility] Cyst - diagnostic aspiration [id number] [facility] Abdominal hysterectomy [id number] [facility] Appendectomy [id number] [facility] Back fusion 890809941 [facility] Carpal tunnel release [id number] [facility] Cervical laminectomy 845788460 [facility] Right repair of rotator cuff 581092059 [facility] Cyst - diagnostic aspiration [id number] [facility] Assessment and Plan Assessment and Plan Date [...] Mejia Date: 07/28/16 Progress Note - Daily [facility] RM: C303 - 00, 3CIM KARLOS SELMA [...] has improved since presentation. She lives at [facility] and her PCP is Dr. Nelson Law in [place]. Review of Systems Constitutional: Weakness, Fatigue, No [...] AAA (abdominal aortic aneurysm) / SNOMED CT 892854758 / Confirmed A-fib / SNOMED CT 2609555083 / Confirmed Risk for falls / SNOMED CT 1880038237 / Confirmed Back pain / SNOMED CT 850517483 / Confirmed COPD (chronic obstructive pulmonary disease) / SNOMED CT 24498439 / Confirmed Chronic pain / SNOMED CT 576116881 / Confirmed Lumbago / SNOMED CT 837323327 / Confirmed Obesity / SNOMED CT 3677759992 / Confirmed Leg pain / SNOMED CT 648106155 / Confirmed Histories Past Medical History: Active AAA (abdominal aortic aneurysm) (039666305) Back pain (175665221) Leg pain (856341882) Risk for falls (4858244538) A-fib (6256951692) COPD (chronic obstructive pulmonary disease) (15963093) Resolved Carpal tunnel syndrome (0286609808): Resolved. Rotator cuff disorder (9749401489): Resolved. Comments: 07/17/2016 TECHNICAL REPORT WRITER 14:52 Serina Moore RN right Stroke (064075672): Resolved. Comments: 07/17/2016 TECHNICAL REPORT WRITER 14:54 Serina Moore RN 2005 minor eye drooping Pneumonia (817637222): Resolved. Comments: 07/17/2016 TECHNICAL REPORT WRITER 15:10 Serina Moore RN x 7 in 4 yrs Family History: Heart disease Father Cancer Mother Diabetes. Mother Procedure history: Right repair of rotator cuff (394254768). Appendectomy (494351806). Back fusion (224817277). Cervical laminectomy (9590076671). Carpal tunnel release (957031999). Abdominal hysterectomy (688656667). Cyst - diagnostic aspiration (6581517681). 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 Exercise Exercise frequency: 5-6 times/week. Exercise type: Walking. Alcohol Never Smoking Status Never smoker; Exposure to Tobacco Smoke None; Cigarette Smoking Last 365 Days No; Reg Smoking Cessation Counseling No entered on: 08/11/17 07/27/2016 [facility] Social History TypeResponse Substance Abuse Use: None. Exercise Exercise frequency: 5-6 times/week. Exercise type: Walking. Alcohol Never Smoking Status Never smoker; Exposure to Tobacco Smoke None; Cigarette Smoking Last 365 Days No; Reg Smoking Cessation Counseling No 07/27/2016 [facility] Family History No Data Provided for This Section Advance Directives No Data Provided for This Section Functional Status No Data Provided for This Section
--- NOTE | 2019-01-12 08:58 | NUR ---
pt placed on wale bed
[2019-01-12 10:06] LABS: ALBUMIN 3.3 g/dL (3.5-5.0); ALBUMIN/GLOBULIN RATIO 0.9 (0.8-2.0); CALCIUM 9.1 mg/dL (8.4-10.2); CREATININE, SERUM 0.95 mg/dL (0.57-1.11)
[2019-01-12] MEDS: MORPHINE SULFATE INJ 4 MG/ML INJ 1ML IV PRN ×3 (14:37→22:00)
--- NOTE | 2019-01-12 18:41 | NUR ---
DR BELLE AT PT BEDSIDE
--- NOTE | 2019-01-12 19:35 | NUR ---
RECEIVED PT IN BED AOX3 .RESPIRATIONS ARE EVEN AND UNLABORED SKIN WARM AND DRY TO TOUCH .ASSESSMENT DONE AND ORIENTED THE PT TO THE ROOM.PT HAS PAIN PUMP IMPLANT TO THE LEFT BUTTOCKS PT C/O PAIN AND GIVEN ORDERED PAIN MEDICATION .CALL LIGHT WITH IN REACH .CONTINUE TO MONITOR
[2019-01-12 19:54] VITALS: BP 121/58
[2019-01-12 20:00] VITALS: BP 107/54
[2019-01-12] MEDS ORDERED: PHENAZOPYRIDINE HCL 100 MG TAB PO PRN (20:15)
[2019-01-12] MEDS: SIMVASTATIN 20 MG TAB PO SCH (21:00)
[2019-01-12] MEDS ORDERED: ZOLPIDEM TARTRATE 5 MG TAB PO PRN (21:00)
--- NOTE | 2019-01-12 21:11 | History and Physical ---
The patient is an 83-year-old lady comes in with weakness. HISTORY OF PRESENTING ILLNESS: An 83-year-old female with history of frequent UTIs, was in usual state of health until the day prior to admission the patient was getting out of bed and felt a sharp sudden pain in her right hip area and also low back and then radiating to the lower extremity. The patient felt that it will get better, stayed in bed and after she woke up the pain was intense. The pain also was coming from the right CVA. The patient came into the emergency room, was found to have pyelonephritis and also admitted for urinary tract infection. PAST MEDICAL HISTORY: History of COPD, history of hypertension, history of hyperlipidemia, history of reflux esophagitis, history of atrial fibrillation, history of hyperlipidemia and history of insomnia and pain. PAST SURGICAL HISTORY: Includes history of fusion, history of cervical laminectomy, history of diskectomy, right shoulder surgery. ALLERGIES: INCLUDE NONSTEROIDAL ANTI-INFLAMMATORY DRUGS, PENICILLIN, SULFA, CIPROFLOXACIN, CODEINE, NITROFURANTOIN, AND STRAWBERRY. SOCIAL HISTORY: No EtOH. No IV drug abuse. Lives in assisted living. The patient has no history of smoking either. FAMILY HISTORY: Positive for hypertension, diabetes mellitus, and cardiac disorders. PHYSICAL EXAMINATION: VITAL SIGNS: Temperature is afebrile, pulse of 70, respirations 16, blood pressure is 121/58, pulse oximetry of 99% on room air. HEENT: Normocephalic, atraumatic. Pupils are reactive to light and accommodation. CVS: S1, S2. Regular. ABDOMEN: Nontender, nondistended. EXTREMITIES: No clubbing. No cyanosis. Positive for right-sided CVA tenderness. Positive for tenderness in the lumbar spine. Positive for straight leg raise too. [place]: [place] [address], hemoglobin of 11.7, hematocrit of 39.3. Chemistry; sodium 139, potassium of 4.0, BUN of 21, creatinine 0.95. ALT 27, AST 62, albumin is 3.3. Urine shows moderate amount of bacteria, positive for nitrites. The patient's microbiology is pending. IMAGING STUDIES: Hip x-ray shows right hip properly located, mild DJD of the each hip. The patient's abdominal CT shows moderate burden of stool throughout the colon, diverticulosis coli, common bile duct dilatation. No evidence of choledocholithiasis. No evidence of renal calculi and nodular soft tissue density in right breast. ASSESSMENT: 1. Urinary tract infection. 2. Right CVA tenderness. 3. Right hip pain and lumbar spine pain. 4. Hypertension. 5. Hyperlipidemia. 6. Atrial fibrillation. 7. Fatigue and debility. 8. Hypertension. PLAN: Continue with ceftriaxone, which has been started. Microbiology has been ordered. We will wait for pending cultures. Physical therapy to ambulate the patient. The patient also will be restarted on her medication for anticoagulation and also antihypertensives. Further recommendation per clinical course. We will continue to monitor the patient and physical therapy will be reinstated and will wait for the microbiology results. MD ANTWAN Rodriguez/MODL /[id number]
[2019-01-12 22:30] VITALS: BP 121/58
[2019-01-13] VITALS (7 sets, daily range): BP systolic 99–133; BP diastolic 50–68
[2019-01-13] MEDS: SODIUM CHLORIDE 0.9% 1000ML 1,000 ML IV SCH ×4 (03:53→21:48)
[2019-01-13] MEDS: ALBUTEROL SULF 0.083% NEB SOLN 3 ML NEB INH SCH ×2 (06:45→13:00)
--- NOTE | 2019-01-13 06:53 | NUR ---
REPORT GIVEN TO THE ON COMING NURSE
[2019-01-13] MEDS ORDERED: CEFTRIAXONE SOD 1 GM/NS 50 ML 50 ML IV SCH (07:15)
--- NOTE | 2019-01-13 07:29 | NUR ---
PATIENT ASSISTED WITH DIAPER CHANGE, VOIDED LARGE AMOUNT OF YELLOW URINE. REPOSITIONED IN BED, CALL LIGHT AT REACH.
[2019-01-13] MEDS: RESTASIS OP SCH (09:00)
[2019-01-13] MEDS: PATANASE NS SCH ×2 (09:00→17:00)
[2019-01-13] MEDS ORDERED: METOPROLOL TARTRATE 25 MG TAB PO SCH (09:00)
[2019-01-13] MEDS: AMLODIPINE BESYLATE 5 MG TAB PO SCH (09:04)
[2019-01-13] MEDS: RIVAROXABAN 20 MG TABLET PO SCH (09:04)
[2019-01-13] MEDS: PANTOPRAZOLE SOD 40 MG TABEC PO SCH (09:04)
[2019-01-13] MEDS: MORPHINE SULFATE INJ 4 MG/ML INJ 1ML IV PRN ×2 (10:45→15:55)
--- NOTE | 2019-01-13 11:41 | NUR ---
PATIENT C/O BACK PAIN, MEDICATED ORDERED. PATIENT STATED THAT SHE IS FEELING BETTER. WILL CONTINUE TO MONITOR.
--- NOTE | 2019-01-13 16:10 | NUR ---
PT IS FROM [facility]. IF CAN GET BACK TO BASELINE WILL RETURN.
--- NOTE | 2019-01-13 16:13 | NUR ---
PATIENT EXERCISED IN ROOM WITH PHYSICAL THERAPY. C/O PAIN AND PAIN MEDICATION GIVEN ORDERED. IN BED RESTING WITH CALL LIGHT AT REACH.
--- NOTE | 2019-01-13 16:14 | NUR ---
PATIENT IN BED RESTING WITH EYES CLOSED, NO DISTRESS NOTED. BED IN LOWER POSITION, CALL LIGHT AT REACH. Addendum: 01/13/19 at 1616 by Charla Coughlin RN WRONG PATIENT
--- NOTE | 2019-01-13 19:13 | NUR ---
Bedside report walking rounds complete. Pt resting in bed and in no apparent distress. All safety measures ensured, bed alarm, and pt call patino near. Pt encouraged to use call patino for assistance.
--- NOTE | 2019-01-13 19:56 | Progress Note ---
DATE: 01/13/2019 SUBJECTIVE: The patient came in with urinary tract infection yesterday. The patient also had lumbar radiculopathy with symptoms of inability to move the right leg. The patient is currently asymptomatic. Physical therapy did work with the patient and the patient did improve. The leg movement and the paresthesias have improved quite a bit. The patient is currently lying in bed, comfortable. OBJECTIVE: VITAL SIGNS: Temperature afebrile 98.2, pulse of 71, respirations 17, blood pressure is 103/54, pulse oximeter of 93%. HEENT: Normocephalic, atraumatic. Pupils are reactive to light and accommodation. CVS: S1, S2 normal. Regular rate and rhythm. ABDOMEN: Nontender, nondistended. EXTREMITIES: No clubbing, no cyanosis, no edema. Strength on the right lower extremity is improved markedly. MUSCULOSKELETAL: Tenderness in the lumbar spine is there and also CVA tenderness positive. LABORATORY VALUES: None done today. Chemistries also none done today. Potassium yesterday was normal and hematology white count was elevated. IMAGING STUDY: Hip x-ray yesterday showed right hip properly located with postoperative changes in the lumbar spine. MICROBIOLOGY: Urine culture is pending. ASSESSMENT: 1. Urinary tract infection. 2. Right hip pain and lumbar spine pain with radicular symptoms. 3. Hypertension. 4. Atrial fibrillation. 5. Debility. 6. Hypertension. PLAN: Continue with Rocephin at this time. The patient will be waiting microbiology cultures and sensitivity. Physical therapy has already ambulated the patient, feeling better. Radicular pain is better. Plan is to wait for culture and sensitivity and possible discharge once we get the sensitivity. Further recommendation per clinical course. We will continue to monitor the patient. The patient also has skin changes with Cristina, nystatin has been ordered for the same. MD ANTWAN Rodriguez/TRACIEL /[id number]
[2019-01-13] MEDS: METOPROLOL TARTRATE 25 MG TAB PO SCH (21:00)
[2019-01-13] MEDS: SIMVASTATIN 20 MG TAB PO SCH (21:46)
[2019-01-13] MEDS: TRAMADOL HCL 50 MG TAB PO PRN (22:08)
[2019-01-14] VITALS (7 sets, daily range): BP systolic 114–123; BP diastolic 54–68
[2019-01-14 05:30] LABS: BASOPHILS # (AUTO) 0.1 (0.0-0.1); BASOPHILS % 0.7 % (0.0-1.0); EOSINOPHILS # (AUTO) 0.3 (0.0-0.4); EOSINOPHILS % 2.8 % (0.0-6.0); HEMATOCRIT 34.9 % (34.2-44.1); HEMOGLOBIN 10.1 g/dL (12.0-16.0); LYMPHOCYTES # (AUTO) 2.1 (1.0-3.2); LYMPHOCYTES % 19.9 % (18.0-39.1); MEAN CORPUSCULAR HEMOGLOBIN 23.9 pg (28-32); MEAN CORPUSCULAR HGB CONC 28.9 g/dL (31-35); MEAN CORPUSCULAR VOLUME 82.5 fL (81-99); MONOCYTES # (AUTO) 0.6 (0.2-0.8); MONOCYTES % 5.7 % (4.4-11.3); NEUTROPHILS # (AUTO) 7.5 (2.1-6.9); NEUTROPHILS % 70.5 % (38.7-80.0); PLATELET COUNT 193 x10e3/uL (140-360); RED BLOOD COUNT 4.23 x10e6/uL (3.6-5.1); RED CELL DISTRIBUTION WIDTH 15.9 % (11.7-14.4)
[2019-01-14 05:56] LABS: ANION GAP 11.3 mmol/L (8-16); CALCIUM 8.7 mg/dL (8.4-10.2); CREATININE, SERUM 0.9 mg/dL (0.57-1.11); POTASSIUM 4.3 mmol/L (3.5-5.1)
--- NOTE | 2019-01-14 07:04 | NUR ---
Bedside report walking rounds complete with day shift RN. Pt resting in bed and in no apparent distress. All safety measures ensured.
--- NOTE | 2019-01-14 07:12 | Progress Note ---
DATE: 01/14/2019 SUBJECTIVE: The patient is here for pyelonephritis, urinary tract infection, low back pain, and also sciatica. The patient's pain in the back is better. The patient is currently on Rocephin for urinary tract infection. Microbiology is pending. Currently asymptomatic. Does complain of some back pain, more CVA tenderness. The patient has no chest pain. No shortness of breath. No nausea, vomiting, or diarrhea. Tolerating food and no complaints of dysuria at this time. PHYSICAL EXAMINATION: VITAL SIGNS: Temperature is 96, pulse of 62, respirations of 18, blood pressure is 114/56, pulse oximeter of 96%. HEENT: Normocephalic, atraumatic. Pupils are reactive to light and accommodation. The patient is tired. CVS: S1 and S2 irregular. ABDOMEN: Nontender, nondistended. EXTREMITIES: No clubbing, no cyanosis, no edema. The patient has CVA tenderness on the right side and also tenderness on the lumbar vertebrae L4-L5 with positive SLR. LABORATORY VALUES: Today's white count has come down to 10.64, hemoglobin of 10.1, hematocrit of 34.9 down. Chemistries; sodium 140, potassium is 4.3, chloride of 109, and urine again pending microbiology. IMAGING STUDIES: None done. ASSESSMENT: 1. Urinary tract infection/pyelonephritis with costovertebral angle tenderness. Continue on Rocephin. The patient is responding. We will wait for cultures and sensitivities before we can send her home. 2. Right hip pain and lumbar pain with radicular symptoms. The patient is undergoing physical therapy for the same. 3. Hypertension. Continue with antihypertensive. 4. Atrial fibrillation. Continue with anticoagulation. 5. Debility, physical therapy, and hypertension. PLAN: 1. Continue with CV medications. The patient can be discharged home once physical therapy has worked with her and she is more ambulatory and also assess for SNF. 2. We will also await for cultures. Further recommendation per clinical course. We will continue to monitor the patient. MD ANTWAN Rodriguez/OMI /[id number]
--- NOTE | 2019-01-14 07:15 | NUR ---
PATIENT IN BED RESTING WITH NOS/S OF DISTRESS. DIAPER CHECKED. BED IN LOWER POSITION AND LOCKED. CALL LIGHT AT REACH.
[2019-01-14] MEDS: ALBUTEROL SULF 0.083% NEB SOLN 3 ML NEB INH SCH ×3 (07:24→18:35)
[2019-01-14] MEDS: PATANASE NS SCH ×2 (09:00→17:00)
[2019-01-14] MEDS: RESTASIS OP SCH (09:00)
[2019-01-14] MEDS: CEFTRIAXONE SOD 1 GM/NS 50 ML 50 ML IV SCH (09:26)
[2019-01-14] MEDS: AMLODIPINE BESYLATE 5 MG TAB PO SCH (09:27)
[2019-01-14] MEDS: LACTOBACILLUS ACIDOPHILUS CAPSULE PO SCH ×2 (09:27→17:16)
[2019-01-14] MEDS: PANTOPRAZOLE SOD 40 MG TABEC PO SCH (09:27)
[2019-01-14] MEDS: RIVAROXABAN 20 MG TABLET PO SCH (09:27)
[2019-01-14] MEDS: TRAMADOL HCL 50 MG TAB PO PRN ×2 (10:30→22:19)
--- NOTE | 2019-01-14 11:33 | NUR ---
PATIENT AMBULATING IN ROOM WITH PHYSICAL THERAPY, NO DISTRESS NOTED. WILL CLOSELY MONITOR.
[2019-01-14] MEDS: SODIUM CHLORIDE 0.9% 1000ML 1,000 ML IV SCH (16:20)
--- NOTE | 2019-01-14 17:35 | NUR ---
PATIENT ASSISTED WITH DIAPER CHANGE, HAD A BM. REPOSITIONED ON BED. CALL LIGHT AT REACH.
[2019-01-14] MEDS: SIMVASTATIN 20 MG TAB PO SCH (21:40)
[2019-01-14] MEDS: METOPROLOL TARTRATE 25 MG TAB PO SCH (21:40)
--- NOTE | 2019-01-14 22:15 | NUR ---
PATIENT IS AOX4 NO SIGNS OF DISTRESS NOTED. PATIENT VOICED CONCERN OF HER IV IN HER RIGHT HAND. SHE STATED THAT SHE FELT PAIN IN THE AREA. UPON ASSESSING THE PATIENT DISPLAYED REDNESS AND SWELLING IN THE AREA. WILL ATTEMPT TO GET IV ACCESS IN ANOTHER AREA.
--- NOTE | 2019-01-14 22:45 | NUR ---
ATTEMPTED TO OBTAIN IV ACCESS IN THE LEFT AC OF THE PATIENT. IT WAS NOT SUCCESSFUL, AND PATIENT VOICED THAT SHE WAS A VERY HARD STICK. CALLED CHARGE NURSE FOR SUPPORT, CONTINUING TO MONITOR SITUATION.
--- NOTE | 2019-01-14 23:15 | NUR ---
CHARGE NURSE SUCCESSFULLY OBTAINED IV ACCESS TO THE RIGHT AC. IT IS PATENT AND FLOWING AT 50 ML/HR. NO COMPLAINTS OF PAIN NOTED. PATIENT IS NOW RELAXING IN BED, SIDE RAILS UP, BED IN LOW POSITION, CALL LIGHT WITHIN EASY REACH WILL CONTINUE TO MONITOR.
[2019-01-15] VITALS: BP 105/67
[2019-01-15] MEDS: SODIUM CHLORIDE 0.9% 1000ML 1,000 ML IV SCH (02:27)
[2019-01-15 08:25] VITALS: BP 129/59
[2019-01-15] MEDS: RESTASIS OP SCH (09:00)
[2019-01-15] MEDS: PATANASE NS SCH (09:00)
[2019-01-15] MEDS: CEFTRIAXONE SOD 1 GM/NS 50 ML 50 ML IV SCH (10:04)
[2019-01-15] MEDS: RIVAROXABAN 20 MG TABLET PO SCH (10:06)
[2019-01-15] MEDS: AMLODIPINE BESYLATE 5 MG TAB PO SCH (10:06)
[2019-01-15] MEDS: LACTOBACILLUS ACIDOPHILUS CAPSULE PO SCH (10:06)
[2019-01-15] MEDS: PANTOPRAZOLE SOD 40 MG TABEC PO SCH (10:06)
[2019-01-15] MEDS: TRAMADOL HCL 50 MG TAB PO PRN (10:20)
--- NOTE | 2019-01-15 10:37 | Progress Note ---
DATE: 01/15/2019 SUBJECTIVE: The patient is an 83-year-old lady, who comes in with urinary tract infection. The patient susceptibility JOSE grew up Staphylococcus aureus, sensitive to tetracyclines. The patient also sensitive to Bactrim and nitrofurantoin, which the patient is allergic to. Currently, asymptomatic, no complaints. The patient had some right hip pain and also back pain, which has dissipated. The patient is able to walk with ambulation without any problems. No dysuria. No chest pain. No shortness of breath of any kind. OBJECTIVE: VITAL SIGNS: Temperature is 98.3, pulse of 85, respirations of 18, blood pressure is 115/54, and pulse oximeter of 93% on room air. HEENT: Normocephalic, atraumatic. Pupils are reactive to light and accommodation. CVS: S1, S2 normal. Regular rate and rhythm. ABDOMEN: Nontender, nondistended. EXTREMITIES: No clubbing, no cyanosis, no edema. LABORATORY VALUES: Today's white count is 10,000, hemoglobin of 10.1, hematocrit of 34.2. Chemistry, sodium 140, potassium 4.3, BUN 16, creatinine 0.90. ALT and AST normal. The patient imaging studies; none done. The patient's again microbiology; did grow Staphylococcus aureus MRSA, probable contamination. We will go ahead and treat the patient with tetracycline. The patient can be still discharged with tetracycline. Since white count is better and the patient is clinically improved quite a bit. We will follow up with the patient in about a week's time as an outpatient. Further recommendation per clinical course. The patient will be taking lactobacillus and/or probiotics while on tetracycline. Other diagnoses include; hypertension, atrial fibrillation, debility, and right hip pain. Continue on CV medications, continue on antihypertensive medications, and also physical therapy at the rehabilitation place. MD ANTWAN Rodriguez/OMI /[id number]
[2019-01-15 11:45] VITALS: BP 112/56
--- NOTE | 2019-01-15 12:04 | NUR ---
IMM LETTER EXPLAINED TO THE PT. VERBALIZED UNDERSTANDING. IMM LETTER WAS SIGNED. COPY TO PT AND COPY TO CHART. PT STATES SHE HAS A RIDE HOME.
[2019-01-15] MEDS ORDERED: ONDANSETRON HCL 4 MG ORAL DISINTEGRATING TAB PO PRN (12:15)
--- NOTE | 2019-04-04 05:13 | Discharge Summary ---
HISTORY: 83-year-old female comes in with urinary tract infection. The patient grew Staphylococcus aureus sensitive to tetracyclines. The patient is also sensitive to Bactrim and nitrofurantoin. The patient was comfortable. The patient felt better. The patient was started on tetracycline and discharged home with tetracycline. FINAL DIAGNOSES: 1. Urinary tract infection. 2. Right hip and lumbar pain. Physical therapy was ordered. 3. Hypertension, continue with antihypertensive. 4. Atrial fibrillation. Continue on anticoagulation. 5. Debility, needs physical therapy as an outpatient basis. The patient again discharged and tetracycline for further information, look in the chart. The patient to followup with me in about a week's time. MD ANTWAN Rodriguez/OMI /[id number]
== END 2019-01-15 12:48 | disposition home or self-care (01) | DRG 690 ==
LOC: ER 03:58 → ERHOLD 06:53 → MED/SURG3 18:57
PROVIDERS: ADMIT Family Medicine; ATTEND Family Medicine
DX: N12 Tubulo-interstitial nephritis, not specified as acute or chronic (principal); I10 Essential (primary) hypertension; E78.5 Hyperlipidemia, unspecified; I48.91 Unspecified atrial fibrillation; R53.81 Other malaise; Z66 Do not resuscitate; B95.62 Methicillin resistant Staphylococcus aureus infection as the cause of diseases classified elsewhere
CPT/HCPCS: 36415; 74176; 80048; 80053; 81001; 85025; 87086; 87186; 94640; 97139; 99285; J0696; J2270; J2405; J7030

== ENCOUNTER 2020-08-28 16:45 | Inpatient (IN) | payer MEDICARE ==
[~2020-08-28] VITALS: Ht 162.6 cm; Wt 79.4 kg
[2020-08-28] MEDS ORDERED: ACETAMINOPHEN 325 MG TAB PO ONE (17:15)
[2020-08-28] MEDS ORDERED: CEFTRIAXONE SOD 1 GM in SODIUM CHLORIDE 0.9% 50ML 50 ML IV ONE (17:15)
[2020-08-28 17:48] LABS: BASOPHILS # (AUTO) 0.1 (0.0-0.1); BASOPHILS % 0.4 % (0.0-1.0); EOSINOPHILS # (AUTO) 0.1 (0.0-0.4); EOSINOPHILS % 0.7 % (0.0-6.0); HEMATOCRIT 32.6 % (34.2-44.1); HEMOGLOBIN 9.3 g/dL (12.0-16.0); LYMPHOCYTES # (AUTO) 2.3 (1.0-3.2); LYMPHOCYTES % 16.3 % (18.0-39.1); MEAN CORPUSCULAR HEMOGLOBIN 21.6 pg (28-32); MEAN CORPUSCULAR HGB CONC 28.5 g/dL (31-35); MEAN CORPUSCULAR VOLUME 75.8 fL (81-99); MONOCYTES # (AUTO) 1.6 (0.2-0.8); MONOCYTES % 11.2 % (4.4-11.3); NEUTROPHILS # (AUTO) 9.9 (2.1-6.9); NEUTROPHILS % 70.5 % (38.7-80.0); PLATELET COUNT 285 x10e3/uL (140-360); RED CELL DISTRIBUTION WIDTH 18.1 % (11.7-14.4)
[2020-08-28 17:58] LABS: COLOR,URINE YELLOW (YELLOW)
[2020-08-28 17:59] LABS: CLARITY,URINE CLOUDY (CLEAR); KETONES,URINE NEGATIVE (NEGATIVE); LEUKOCYTE ESTERASE ,URINE SMALL (NEGATIVE); NITRITE,URINE POSITIVE (NEGATIVE); PROTEIN,URINE DIPSTICK 1+ (NEGATIVE); URINE UROBILINOGEN 0.2 mg/dL (0.2 - 1)
[2020-08-28 18:06] LABS: BACTERIA,URINE MODERATE /HPF; WBC,URINE (MAN) 21-50 /HPF (0-5)
[2020-08-28 18:06] LABS: ALBUMIN 3.3 g/dL (3.5-5.0); ALBUMIN/GLOBULIN RATIO 0.9 (0.8-2.0); ANION GAP 12.8 mmol/L (8-16); CALCIUM 8.6 mg/dL (8.4-10.2); CREATININE, SERUM 1.18 mg/dL (0.57-1.11); POTASSIUM 3.8 mmol/L (3.5-5.1)
[2020-08-28 18:07] LABS: EPITHELIAL CELLS,URINE FEW /LPF
[2020-08-28 18:13] LABS: CREATINE KINASE MB 0.5 ng/mL (0-5.0)
[2020-08-28] MEDS: SODIUM CHLORIDE 0.9% 1000ML 1,000 ML IV SCH (18:17)
[2020-08-28] MEDS ORDERED: ACETAMINOPHEN 325 MG TAB PO PRN (19:30)
[2020-08-28] MEDS ORDERED: ONDANSETRON HCL INJ 2MG/ML 2ML 2 MG/ML VIAL IV PRN (19:30)
[2020-08-29 06:05] LABS: BASOPHILS # (AUTO) 0.1 (0.0-0.1); BASOPHILS % 0.5 % (0.0-1.0); EOSINOPHILS # (AUTO) 0.2 (0.0-0.4); EOSINOPHILS % 2.1 % (0.0-6.0); HEMATOCRIT 32.3 % (34.2-44.1); HEMOGLOBIN 9.2 g/dL (12.0-16.0); LYMPHOCYTES # (AUTO) 1.9 (1.0-3.2); LYMPHOCYTES % 16.2 % (18.0-39.1); MEAN CORPUSCULAR HEMOGLOBIN 21.7 pg (28-32); MEAN CORPUSCULAR HGB CONC 28.5 g/dL (31-35); MEAN CORPUSCULAR VOLUME 76.2 fL (81-99); MONOCYTES # (AUTO) 1.2 (0.2-0.8); MONOCYTES % 10.1 % (4.4-11.3); NEUTROPHILS # (AUTO) 8.2 (2.1-6.9); NEUTROPHILS % 70.5 % (38.7-80.0); PLATELET COUNT 317 x10e3/uL (140-360); RED BLOOD COUNT 4.24 x10e6/uL (3.6-5.1); RED CELL DISTRIBUTION WIDTH 18.3 % (11.7-14.4)
[2020-08-29] MEDS: SODIUM CHLORIDE 0.9% 1000ML 1,000 ML IV SCH ×2 (06:30→14:08)
[2020-08-29 06:38] LABS: ALBUMIN/GLOBULIN RATIO 0.9 (0.8-2.0); ANION GAP 12.3 mmol/L (8-16); CALCIUM 8.4 mg/dL (8.4-10.2); CREATININE, SERUM 1.13 mg/dL (0.57-1.11); POTASSIUM 3.3 mmol/L (3.5-5.1)
[2020-08-29] MEDS ORDERED: ALBUTEROL SULF 0.083% NEB SOLN 3 ML NEB INH PRN (12:15)
[2020-08-29] MEDS ORDERED: NON-FORMULARY MEDICATION (Simvastatin 10 MG) PO SCH (12:15)
[2020-08-29] MEDS ORDERED: TRAMADOL HCL 50 MG TAB PO PRN (12:15)
[2020-08-29] MEDS: METOPROLOL TARTRATE 25 MG TAB PO SCH (18:18)
[2020-08-29] MEDS ORDERED: SIMVASTATIN 20 MG TAB PO SCH (21:00)
[2020-08-29] MEDS ORDERED: CEFTRIAXONE SOD 1 GM in DEXTROSE 5% 50ML 50 ML IV SCH (21:00)
[2020-08-29] MEDS ORDERED: CEFTRIAXONE SOD 1 GM VIAL ONE (23:22)
[2020-08-30] MEDS: SODIUM CHLORIDE 0.9% 1000ML 1,000 ML IV SCH ×2 (06:49→09:17)
[2020-08-30] MEDS ORDERED: PANTOPRAZOLE SOD 40 MG TABEC PO SCH (07:30)
[2020-08-30 07:51] LABS: BASOPHILS % 0.3 % (0.0-1.0); EOSINOPHILS # (AUTO) 0.3 (0.0-0.4); EOSINOPHILS % 2.5 % (0.0-6.0); HEMATOCRIT 32.2 % (34.2-44.1); HEMOGLOBIN 9.1 g/dL (12.0-16.0); LYMPHOCYTES # (AUTO) 1.6 (1.0-3.2); LYMPHOCYTES % 12.6 % (18.0-39.1); MEAN CORPUSCULAR HEMOGLOBIN 21.6 pg (28-32); MEAN CORPUSCULAR HGB CONC 28.3 g/dL (31-35); MEAN CORPUSCULAR VOLUME 76.3 fL (81-99); MONOCYTES # (AUTO) 0.9 (0.2-0.8); NEUTROPHILS # (AUTO) 9.5 (2.1-6.9); PLATELET COUNT 330 x10e3/uL (140-360); RED BLOOD COUNT 4.22 x10e6/uL (3.6-5.1); RED CELL DISTRIBUTION WIDTH 18.5 % (11.7-14.4)
[2020-08-30 08:12] LABS: ALBUMIN 2.9 g/dL (3.5-5.0); ALBUMIN/GLOBULIN RATIO 0.8 (0.8-2.0); ANION GAP 16.2 mmol/L (8-16); CALCIUM 8.6 mg/dL (8.4-10.2); CREATININE, SERUM 1.01 mg/dL (0.57-1.11); POTASSIUM 3.2 mmol/L (3.5-5.1)
[2020-08-30] MEDS ORDERED: RIVAROXABAN 20 MG TABLET PO SCH (09:00)
[2020-08-30] MEDS ORDERED: AMLODIPINE BESYLATE 5 MG TAB PO SCH (09:00)
[2020-08-30] MEDS ORDERED: NON-FORMULARY MEDICATION (Amlodipine Besylate 2.5 MG) PO SCH (09:00)
[2020-08-30] MEDS: METOPROLOL TARTRATE 25 MG TAB PO SCH (09:17)
[2020-08-30 14:50] VITALS: BP 140/67
== END 2020-08-30 14:50 | disposition home or self-care (01) | DRG 871 ==
LOC: ER 17:34 → ERHOLD 19:25
PROVIDERS: ADMIT Family Medicine; ATTEND Family Medicine
DX: A41.9 Sepsis, unspecified organism (principal); G93.41 Metabolic encephalopathy; N39.0 Urinary tract infection, site not specified; I48.20 Chronic atrial fibrillation, unspecified; I10 Essential (primary) hypertension; M19.90 Unspecified osteoarthritis, unspecified site; E03.9 Hypothyroidism, unspecified; Z79.01 Long term (current) use of anticoagulants; Z20.822 Contact with and (suspected) exposure to COVID-19; Z86.73 Personal history of transient ischemic attack (TIA), and cerebral infarction without residual deficits; B96.20 Unspecified Escherichia coli [E. coli] as the cause of diseases classified elsewhere
CPT/HCPCS: 36415; 71045; 80053; 81001; 82550; 82553; 83605; 83880; 84443; 84484; 85025; 87040; 87086; 87186; 93005; 93306; 99285; J0696; J7030; U0002

== ENCOUNTER → 2023-01-29 | Outpatient (CLI) | payer MEDICARE ==
[~2023-01-29] MED LIST changes: +IOPAMIDOL 370 MG/ML 100 ML INFUS..BTL INJ ONE; +SODIUM CHLORIDE 0.9% 100 ML ONE
[2023-01-29 11:02] LABS: CREATININE, SERUM 0.92 mg/dL (0.57-1.11)
== END ==
LOC: CT 09:48
PROVIDERS: ATTEND Internal Medicine Cardiovascular Disease
DX: I71.9 Aortic aneurysm of unspecified site, without rupture (principal)
CPT/HCPCS: 36415; 71275; 74174; 82565; 84520; J7050; Q9967

== ENCOUNTER → 2024-02-04 | Outpatient (REF) | payer MEDICARE ==
[2024-02-04 11:19] LABS: CREATININE, SERUM 0.79 mg/dL (0.57-1.11)
== END ==
LOC: CT 09:39
PROVIDERS: ATTEND Internal Medicine Cardiovascular Disease
DX: R07.9 Chest pain, unspecified (principal); I71.9 Aortic aneurysm of unspecified site, without rupture
CPT/HCPCS: 36415; 71275; 82565; 84520; J7050; Q9967